=== PATIENT | female | born 1980 | race Caucasian/White ===

== ENCOUNTER → 2017-06-16 | Outpatient (CLI) | payer MEDICAID, SELFPAY | PROVIDERS: Visit Provider Nurse Practitioner Family | DX: R30.0 Dysuria (principal); Z00.00 Encounter for general adult medical examination without abnormal findings | CPT/HCPCS: 36415; 80053; 80061; 87086 ==

== ENCOUNTER 2017-06-28 13:12 | Observation (INO) | payer MEDICAID, SELFPAY ==
--- NOTE | 2017-06-28 | CT_ITS ---
CT head/brain wo con HISTORY: ITS.REASON: DIZZINESS ORDERING PHYSICIAN: Francisco Javier Khan MD PATIENT AGE: 37 years COMPARISON: 11/07/2010 TECHNIQUE: Axial images obtained without contrast. Brain and bone windows reviewed. FINDINGS: No midline shift, mass effect, intracranial hemorrhage, hydrocephalus, or extra-axial fluid collection is evident. The calvarium has an unremarkable appearance. No mastoid effusion. No sinus air-fluid levels.. IMPRESSION: Negative CT head without contrast. No acute finding.
[2017-06-28 13:16] VITALS: BP 147/91; PULSE 76; RESP 18; TEMP 36.7; O2SAT 97; BMI 53.3
--- NOTE | 2017-06-28 13:33 | XR_ITS ---
XR chest 2V HISTORY: ITS.REASON: weakness and dizziness ORDERING PHYSICIAN: Francisco Javier Khan MD PATIENT AGE: 37 years COMPARISON: None available FINDINGS: The cardiomediastinal silhouette and pulmonary vascularity are within normal limits. The lungs are clear without infiltrates, suspicious nodules, or pleural effusions. There is a small calcified granuloma in the right upper lobe No acute bony abnormalities. IMPRESSION: Negative chest, no acute finding
[2017-06-28 14:04] LABS: Basophils % 0.4 % (0.1-2.0); Eosinophils # 0.3 K/mm3 (0.0-0.4); Eosinophils % 4.2 % (0.1-12.0); Hematocrit 39.4 % (37.0-47.0); Hemoglobin 13.2 g/dL (12.2-16.2); Lymphocytes # 3.1 K/mm3 (0.7-4.5); Lymphocytes % 40.1 K/mm3 (10-50); Mean Corpuscular HGB Conc 33.5 g/dL (31.8-35.4); Mean Corpuscular Volume 86.5 fl (81-99); Mean Platelet Volume 7.1 fl (7.4-10.4); Monocytes # 0.4 K/mm3 (0.1-1.0); Monocytes % 5.4 % (1.7-9.3); Neutrophils # 3.9 K/mm3 (1.8-7.8); Neutrophils % 49.8 % (37.0-80.0); Platelet Count 254 K/mm3 (142-424); Red Blood Count 4.56 M/mm3 (4.20-5.40); White Blood Count 7.7 K/mm3 (4.8-10.8)
[2017-06-28 14:14] LABS: Strep Scrn Group A (Rapid) Negative (Negative)
[2017-06-28 14:18] LABS: AMB Influenza A Antigen Negative (Negative); AMB Influenza B Antigen Negative (Negative)
[2017-06-28 14:28] LABS: Alanine Aminotransferase 27 U/L (12-78); Albumin Level 4.2 gm/dL (3.4-5.0); Alkaline Phosphatase 78 U/L (46-116); Anion Gap 9.9 mEq/L (5-15); Aspartate Amino Transferase 20 U/L (15-37); Bilirubin,Total 0.3 mg/dL (0.2-1.0); Blood Urea Nitrogen 14 mg/dL (7-18); Calcium 9.7 mg/dL (8.5-10.1); Carbon Dioxide 29 mmol/L (21.0-32.0); Chloride 103 mmol/L (98-107); Creatine Kinase 72 U/L (26-192); Creatinine Clearance Estimated 78 mL/min (0-300); Creatinine,Serum 0.82 mg/dL (0.55-1.02); Estimated Glomerular Filt Rate 78 ml/min (>60); GFR (African American) 95 ML/MIN (>60); Globulin 4.2 gm/dl (1.3-3.2); Glucose 86 mg/dL (74-106); Potassium 3.9 mmoL/L (3.5-5.1); Sodium 138 mmol/L (136-145); Total Protein,Serum 8.4 gm/dL (6.4-8.2); Troponin I < 0.02 ng/ml (0.00-0.06)
[2017-06-28 14:29] LABS: CKMB Relative Index 0.7 U/L (0-4.0); Creatine Kinase MB < 0.5 mg/ml (0.0-3.6)
[2017-06-28 15:13] LABS: Microscopic, Urine URINE MICROSCOPIC (MICROSCOPIC)
[2017-06-28 15:16] LABS: Appearance,Urine CLEAR (Clear); Bilirubin,Urine Negative (Negative); Blood, Urine 2+ (Negative); Color,Urine STRAW (Yellow); Glucose,Urine (UA) Negative (Negative); Ketones,Urine Negative (Negative); Leukocyte Esterase,Urine Negative (Negative); Nitrate,Urine Negative (Negative); Protein,Urine Negative (Negative); Specific Gravity, Urine <= 1.005 (1.005-1.030); Urobilinogen,Urine 0.2 EU/dl (0.2)
[2017-06-28 15:52] LABS: Bacteria,Urine 1+ /lpf; RBC,Urine Occasional #/hpf (0-3); WBC,Urine Occasional #/hpf (0-3)
--- NOTE | 2017-06-28 16:00 | HMH.EDDIZZ ---
ED Disposition Clinical Impression: Pre-syncope, Vertigo Hypertension Qualifiers: Hypertension type: unspecified Qualified Code(s): I10 - Essential (primary) hypertension Disposition: Still a Patient Condition on Discharge: Fair Referrals: Provider,Referral, [Primary Care Provider] - - Critical Care Critical Care Time: No Attestation: On 06/28/17, the high probability of a clinically significant, sudden or life threatening deterioration of the following system(s) required my full and direct attention, intervention and personal management. The time I documented below is in addition to time spent performing reported procedures but includes the following listed in this critical care notation. Medical Decision Making Vital Signs: 06/28/17 13:16 Temperature 98.1 F Temperature Source Oral Pulse Rate [Right Brachial] 76 Respiratory Rate 18 Blood Pressure [Right Arm] 147/91 Blood Pressure Mean [Right Arm] 109 Blood Pressure Source [Right Arm] Automatic Cuff Blood Pressure Position [Right Arm] Sitting 02 Sat by Pulse Oximetry 97 Oxygen Delivery Method Room Air - Lab Data Lab Results 06/28/17 13:50: WBC 7.7, RBC 4.56, Hgb 13.2, Hct 39.4, MCV 86.5, MCH 29.0, MCHC 33.5, RDW 13.0, Plt Count 254, MPV 7.1 L, Neut % (Auto) 49.8, Lymph % (Auto) 40.1, [place] % (Auto) 5.4, Eos % (Auto) 4.2, Baso % (Auto) 0.4, Neut # (Auto) 3.9, Lymph # (Auto) 3.1, [place] # (Auto) 0.4, Eos # (Auto) 0.3, Baso # (Auto) 0.0 06/28/17 13:50: Sodium 138, Potassium 3.9, Chloride 103, Carbon Dioxide 29, Anion Gap 9.9, BUN 14, Creatinine 0.82, Estimated Creat Clear 78, Estimated GFR 78, Est GFR ( Amer) 95, Glucose 86, Calcium 9.7, Total Bilirubin 0.3, AST 20, ALT 27, Alkaline Phosphatase 78, Total Creatine Kinase 72, CK-MB (CK-2) < 0.5, CK-MB (CK-2) Rel Index 0.7, Troponin I < 0.02, Total Protein 8.4 H, Albumin 4.2, Globulin 4.2 H, Albumin/Globulin Ratio 1.0 L 06/28/17 13:50: Group A Strep Rapid Negative 06/28/17 13:50: Influenza Type A Ag Negative, Influenza Type B Ag Negative 06/28/17 15:05: Urine Color Straw, Urine Appearance Clear, Urine pH 6.0, Ur Specific [place] <= 1.005, Urine Protein Negative, Urine Glucose (UA) Negative, Urine Ketones Negative, Urine Blood 2+, Urine Nitrate Negative, Urine Bilirubin Negative, Urine Urobilinogen 0.2, Ur Leukocyte Esterase Negative, Urine RBC Occasional, Urine WBC Occasional, Ur Squamous Epith Cells 5-10, Urine Bacteria 1+ Result diagrams: 06/28/17 13:50 06/28/17 13:50 Orders (Tests/Meds): ORDERS Category Date Time Status Strep Screen Confirmation Stat Micro 06/28/17 13:50 Received - Radiology Data #1 Image(s): Chest Image Reviewed: Yes I reviewed the patient's radiology results, Yes I reviewed the patient's radiology image w/the ED provider - CT Data ED CT Reviewed: Yes: I have reviewed the patient's CT results, I have viewed the radiologist's interpretation Preliminary Findings: Normal/NAD - Jack Inquiry Pt receiving controlled substance: No Jack was queried for this patient: No Medical Decision Making Narrative: I discussed the negative workup with the patient. She continued to be symptomatic feeling weak unable to ambulate. I called Dr. Barnhart and spoke with Liyah. She would be admitted for observation. Dizzy HPI - General Chief Complaint: Weakness Stated Complaint: high blood pressure Mode of Arrival: Ambulatory Limitations: No Limitations Description of Symptoms (Recalled from ER Triage Doc. by RN): PT STATES SHE WAS AT WORK AND SHE STARTED FEELING WEAK AND HAD THE SCHOOL NURSE CHECK HER BLOOD SUGAR IT WAS 92 AND HER BP WAS 170/130. PT FEELS DIZZY WHEN STANDING. - History of Present Illness HPI Narrative: Since 37 years old white female with history of remote vertigo. She was at work when she had a sudden onset of dizziness diaphoresis imbalance and leg weakness. Denies having chest pain shortness of breath or palpitation, she went to the school [employer]
--- NOTE | 2017-06-28 16:04 | ED_ITS ---
ED Disposition Clinical Impression: Pre-syncope, Vertigo Hypertension Qualifiers: Hypertension type: unspecified Qualified Code(s): I10 - Essential (primary) hypertension Disposition: Still a Patient Condition on Discharge: Fair Referrals: Provider,Referral, [Primary Care Provider] - - Critical Care Critical Care Time: No Attestation: On 06/28/17, the high probability of a clinically significant, sudden or life threatening deterioration of the following system(s) required my full and direct attention, intervention and personal management. The time I documented below is in addition to time spent performing reported procedures but includes the following listed in this critical care notation. Medical Decision Making Vital Signs: 06/28/17 13:16 Temperature 98.1 F Temperature Source Oral Pulse Rate [Right Brachial] 76 Respiratory Rate 18 Blood Pressure [Right Arm] 147/91 Blood Pressure Mean [Right Arm] 109 Blood Pressure Source [Right Arm] Automatic Cuff Blood Pressure Position [Right Arm] Sitting 02 Sat by Pulse Oximetry 97 Oxygen Delivery Method Room Air - Lab Data Lab Results 06/28/17 13:50: WBC 7.7, RBC 4.56, Hgb 13.2, Hct 39.4, MCV 86.5, MCH 29.0, MCHC 33.5, RDW 13.0, Plt Count 254, MPV 7.1 L, Neut % (Auto) 49.8, Lymph % (Auto) 40.1, [place] % (Auto) 5.4, Eos % (Auto) 4.2, Baso % (Auto) 0.4, Neut # (Auto) 3.9 , Lymph # (Auto) 3.1, [place] # (Auto) 0.4, Eos # (Auto) 0.3, Baso # (Auto) 0.0 06/28/17 13:50: Sodium 138, Potassium 3.9, Chloride 103, Carbon Dioxide 29, Anion Gap 9.9, BUN 14, Creatinine 0.82, Estimated Creat Clear 78, Estimated GFR 78, Est GFR ( Amer) 95, Glucose 86, Calcium 9.7, Total Bilirubin 0.3, AST 20, ALT 27, Alkaline Phosphatase 78, Total Creatine Kinase 72, CK-MB (CK-2) < 0.5, CK-MB (CK-2) Rel Index 0.7, Troponin I < 0.02, Total Protein 8.4 H, Albumin 4.2, Globulin 4.2 H, Albumin/Globulin Ratio 1.0 L 06/28/17 13:50: Group A Strep Rapid Negative 06/28/17 13:50: Influenza Type A Ag Negative, Influenza Type B Ag Negative 06/28/17 15:05: Urine Color Straw, Urine Appearance Clear, Urine pH 6.0, Ur Specific [place] <= 1.005, Urine Protein Negative, Urine Glucose (UA) Negative, Urine Ketones Negative, Urine Blood 2+, Urine Nitrate Negative, Urine Bilirubin Negative, Urine Urobilinogen 0.2, Ur Leukocyte Esterase Negative, Urine RBC Occasional, Urine WBC Occasional, Ur Squamous Epith Cells 5-10, Urine Bacteria 1 + Result diagrams: 06/28/17 13:50 06/28/17 13:50 Orders (Tests/Meds): ORDERS Category Date Time Status Strep Screen Confirmation Stat Micro 06/28/17 13:50 Received - Radiology Data #1 Image(s): Chest Image Reviewed: Yes I reviewed the patient's radiology results, Yes I reviewed the patient's radiology image w/the ED provider - CT Data ED CT Reviewed: Yes: I have reviewed the patient's CT results, I have viewed the radiologist's interpretation Preliminary Findings: Normal/NAD - Jack Inquiry Pt receiving controlled substance: No Jack was queried for this patient: No Medical Decision Making Narrative: I discussed the negative workup with the patient. She continued to be symptomatic feeling weak unable to ambulate. I called Dr. Barnhart and spoke with Liyah. She would be admitted for observation. Dizzy HPI - General Chief Complaint: Weakness Stated Complaint: high blood pressure Mode of Arrival: Ambulatory Limitations:
--- NOTE | 2017-06-28 16:06 | PC.NURSE ---
SPOKE WITH [employer] FOR ADMIT BED.
--- NOTE | 2017-06-28 16:37 | HMH.HP ---
*Admission Date: 06/28/17 *Chief complaint: dizziness *History of present illness: 37 year old female presented to the ED with dizziness, elevated blood pressure, and headache. Patient reports she was walking through the kitchen at work when she had acute onset of diaphoresis and dizziness. She began seeing white spots and thought she was going to pass out. States she went to see the school nurse who took blood pressure which was elevated at 170/130. She was brought to the ED for evaluation. In the ED, CT head and labwork were unremarkable. Patient continued to have dizziness and was unsteady on her feet. Blood pressure remained elevated 140's/100's. Patient was admitted for observation and further evaluation. [facility] History Medical History: Denies:: Cancer, Diabetes Mellitus Type 1, Diabetes Mellitus Type 2, MRSA Amputation: No Fractures: No - *Social History Smoking Status: Never smoker Alcohol Intake: never - Psychiatric History Expresses thoughts of harming self/others: None Suicide Plan Description: No Plan Review of Systems - Review of Systems Review of systems:: pertinent systems reviewed and negative unless documented below - *Gastrointestinal Reports nausea, Denies loose stools, Denies vomiting - *Neurologic Reports headache(s), Reports dizziness, Denies abnormal walking, Denies abnormal movements, Denies confusion, Denies tingling, Denies weakness Meds Allergies Allergy/AdvReac Type Severity Reaction Status Date / Time escitalopram [From Lexapro] Allergy Mild Hives Verified 06/28/17 13:28 Penicillins Allergy Mild Hives Verified 06/28/17 13:28 Exam Vital signs and Labs for Last 24 Hours: Temp Pulse Resp BP Pulse Ox 98.1 F 76 18 147/91 97 06/28/17 13:16 06/28/17 13:16 06/28/17 13:16 06/28/17 13:16 06/28/17 13:16 Laboratory Results - last 24 hr 06/28/17 13:50: WBC 7.7, RBC 4.56, Hgb 13.2, Hct 39.4, MCV 86.5, MCH 29.0, MCHC 33.5, RDW 13.0, Plt Count 254, MPV 7.1 L, Neut % (Auto) 49.8, Lymph % (Auto) 40.1, [place] % (Auto) 5.4, Eos % (Auto) 4.2, Baso % (Auto) 0.4, Neut # (Auto) 3.9, Lymph # (Auto) 3.1, [place] # (Auto) 0.4, Eos # (Auto) 0.3, Baso # (Auto) 0.0 06/28/17 13:50: Sodium 138, Potassium 3.9, Chloride 103, Carbon Dioxide 29, Anion Gap 9.9, BUN 14, Creatinine 0.82, Estimated Creat Clear 78, Estimated GFR 78, Est GFR ( Amer) 95, Glucose 86, Calcium 9.7, Total Bilirubin 0.3, AST 20, ALT 27, Alkaline Phosphatase 78, Total Creatine Kinase 72, CK-MB (CK-2) < 0.5, CK-MB (CK-2) Rel Index 0.7, Troponin I < 0.02, Total Protein 8.4 H, Albumin 4.2, Globulin 4.2 H, Albumin/Globulin Ratio 1.0 L 06/28/17 13:50: Group A Strep Rapid Negative 06/28/17 13:50: Influenza Type A Ag Negative, Influenza Type B Ag Negative 06/28/17 15:05: Urine Color Straw, Urine Appearance Clear, Urine pH 6.0, Ur Specific [place] <= 1.005, Urine Protein Negative, Urine Glucose (UA) Negative, Urine Ketones Negative, Urine Blood 2+, Urine Nitrate Negative, Urine Bilirubin Negative, Urine Urobilinogen 0.2, Ur Leukocyte Esterase Negative, Urine RBC Occasional, Urine WBC Occasional, Ur Squamous Epith Cells 5-10, Urine Bacteria 1+ I & O for Last 24 hours: Intake & Output 06/26/17 06/27/17 06/28/17 06/29/17 11:59 11:59 11:59 11:59 Weight 301 lb Narrative: Pleasant, NAD. Alert and oriented x3. Rate and rhythm regular. No LE edema. Pulses 2+ bilaterally. Lung sounds clear and equal throughout. Abdomen soft, non-tender. [place] inconclusive. No arm drift. No unilateral weakness or neurological deficit. Skin pink, warm and dry. No JVD or cervical LAD H&P: Result - Labs Labs: Short CBC 06/28/17 Range/Units 13:50 WBC 7.7 (4.8-10.8) K/mm3 Hgb 13.2 (12.2-16.2) g/dL Hct 39.4 (37.0-47.0) % Plt Count 254 (142-424) K/mm3 [facility] 06/28/17 13:50 Sodium 138 Potassium 3.9 Chloride 103 Carbon Dioxide 29 BUN 14 Creatinine 0.82 Glucose 86 Calcium 9.7 Cardiac Enzymes
[2017-06-28 16:43] LABS: Troponin I < 0.02 ng/ml (0.00-0.06)
--- NOTE | 2017-06-28 16:43 | P.HP_ITS ---
*Admission Date: 06/28/17 *Chief complaint: dizziness *History of present illness: 37 year old female presented to the ED with dizziness, elevated blood pressure, and headache. Patient reports she was walking through the kitchen at work when she had acute onset of diaphoresis and dizziness. She began seeing white spots and thought she was going to pass out. States she went to see the school nurse who took blood pressure which was elevated at 170/130. She was brought to the ED for evaluation. In the ED, CT head and labwork were unremarkable. Patient continued to have dizziness and was unsteady on her feet. Blood pressure remained elevated 140's/100's. Patient was admitted for observation and further evaluation. [facility] History Medical History: Denies:: Cancer, Diabetes Mellitus Type 1, Diabetes Mellitus Type 2, MRSA Amputation: No Fractures: No - *Social History Smoking Status: Never smoker Alcohol Intake: never - Psychiatric History Expresses thoughts of harming self/others: None Suicide Plan Description: No Plan Review of Systems - Review of Systems Review of systems:: pertinent systems reviewed and negative unless documented below - *Gastrointestinal Reports nausea, Denies loose stools, Denies vomiting - *Neurologic Reports headache(s), Reports dizziness, Denies abnormal walking, Denies abnormal movements, Denies confusion, Denies tingling, Denies weakness Meds Allergies Allergy/AdvReac Type Severity Reaction Status Date / Time escitalopram [From Lexapro] Allergy Mild Hives Verified 06/28/17 13:28 Penicillins Allergy Mild Hives Verified 06/28/17 13:28 Exam Vital signs and Labs for Last 24 Hours: Temp Pulse Resp BP Pulse Ox 98.1 F 76 18 147/91 97 06/28/17 13:16 06/28/17 13:16 06/28/17 13:16 06/28/17 13:16 06/28/17 13:16 Laboratory Results - last 24 hr 06/28/17 13:50: WBC 7.7, RBC 4.56, Hgb 13.2, Hct 39.4, MCV 86.5, MCH 29.0, MCHC 33.5, RDW 13.0, Plt Count 254, MPV 7.1 L, Neut % (Auto) 49.8, Lymph % (Auto) 40.1, [place] % (Auto) 5.4, Eos % (Auto) 4.2, Baso % (Auto) 0.4, Neut # (Auto) 3.9 , Lymph # (Auto) 3.1, [place] # (Auto) 0.4, Eos # (Auto) 0.3, Baso # (Auto) 0.0 06/28/17 13:50: Sodium 138, Potassium 3.9, Chloride 103, Carbon Dioxide 29, Anion Gap 9.9, BUN 14, Creatinine 0.82, Estimated Creat Clear 78, Estimated GFR 78, Est GFR ( Amer) 95, Glucose 86, Calcium 9.7, Total Bilirubin 0.3, AST 20, ALT 27, Alkaline Phosphatase 78, Total Creatine Kinase 72, CK-MB (CK-2) < 0.5, CK-MB (CK-2) Rel Index 0.7, Troponin I < 0.02, Total Protein 8.4 H, Albumin 4.2, Globulin 4.2 H, Albumin/Globulin Ratio 1.0 L 06/28/17 13:50: Group A Strep Rapid Negative 06/28/17 13:50: Influenza Type A Ag Negative, Influenza Type B Ag Negative 06/28/17 15:05: Urine Color Straw, Urine Appearance Clear, Urine pH 6.0, Ur Specific [place] <= 1.005, Urine Protein Negative, Urine Glucose (UA) Negative, Urine Ketones Negative, Urine Blood 2+, Urine Nitrate Negative, Urine Bilirubin Negative, Urine Urobilinogen 0.2, Ur Leukocyte Esterase Negative, Urine RBC Occasional, Urine WBC Occasional, Ur Squamous Epith Cells 5-10, Urine Bacteria 1 + I & O for Last 24 hours: Intake & Output 06/26/17 06/27/17 06/28/17 06/29/17 11:59 11:59 11:59 11:59 Weight 301 lb Narrative: Pleasant, NAD. Alert and oriented x3. Rate and rhythm regular. No LE edema. Pulses 2+ bilaterally. Lung sounds clear and equal throughout. Abdomen soft, non-tender. [place] inconclusive. No arm drift. No unilateral weak
[2017-06-28 17:04] VITALS: BP 144/94; PULSE 74; RESP 20; O2SAT 96
[2017-06-28 17:20] VITALS: BMI 53.3
[2017-06-28 18:45] VITALS: BP 128/72; PULSE 68; RESP 20; TEMP 36.6; O2SAT 97; BMI 53.4
[2017-06-28 18:57] VITALS: PULSE 60
--- NOTE | 2017-06-28 19:21 | PC.NURSE ---
REPORT RECEIVED FROM KOLBY; PT FULL CODE
[2017-06-28 19:53] LABS: Troponin I < 0.02 ng/ml (0.00-0.06)
[2017-06-28 20:00] VITALS: BP 137/76; PULSE 64; PULSE 70; RESP 18; TEMP 36.8; O2SAT 98
[2017-06-28 21:00] VITALS: PULSE 64; O2SAT 98
[2017-06-28 22:49] LABS: Troponin I < 0.02 ng/ml (0.00-0.06)
[2017-06-29] VITALS: BP 112/68; PULSE 70; PULSE 74; RESP 18; TEMP 36.4; O2SAT 95
[2017-06-29 03:50] VITALS: BP 124/63; PULSE 65; RESP 20; TEMP 36.6; O2SAT 97
[2017-06-29 04:00] VITALS: PULSE 70
--- NOTE | 2017-06-29 06:28 | PC.NURSE ---
PT SLEPT INTERVALS THIS SHIFT. C/O DULL BACK X2, TYLENOL GIVEN. ALSO, STATED FELT A LITTLE FUNNY ASKED IF SHE COULD HAVE THE MECLIZINE. MED GIVEN PER AUG. VSS. TROPONIN X4 ALL <0.02. NO CHEST PAIN. NO SOA NOTED. IV SECURE AND PATENT. PT TO RECEIVE ECHO AND CAROTID DOPPLER TODAY. PT STABLE. WILL CONTINUE TO MONITOR. REPORT TO BE GIVEN TO ONCOMING NURSE.
--- NOTE | 2017-06-29 06:54 | CA_ITS ---
PROCEDURE: 2-D M-mode and color Doppler study INDICATIONS FOR THE TEST: Chest pain COPD Heart Murmur Tobacco Smoking Palpitations Fatigue SyncopeX Edema HypertensionXDiabetes Mellitus Rheumatic Fever SOB MARTÍNEZ Obesity Hyperlipidemia Family History HD Additional History DIZZINESS PATIENT INFORMATION HEIGHT: 63 WEIGHT:301 GENDER: Female B/P:117/80 2-D/M-MODE INTERPRETATION: 2-D MEASUREMENTS OBSERVED VALUES IN CMS Right Ventricular Dimension (RVDd) .9 Interventricular Septum (Thickness)(IVsd) 1.1 Left Ventricular Internal Dimensions(LVIDd) 5.0 Left Ventricular Posterior Wall (Thickness)(LVPWd) .9 Aortic Root 2.8 Aortic Cusp Separation 2.1 Left Atrial Dimensions (LAD) 3.6 2D 1. Technically difficult study because of the patient's factor and poor acoustic windows. 2. Left atrium is normal size, left ventricle is normal size, left ventricle wall thickness is upper limit of the normal, there is preserved left ventricular systolic function, visually estimated ejection fraction 55% with no obvious regional wall motion abnormality. 3. The right atrium and right ventricle are normal size and contractility. 4. The aortic, mitral and tricuspid valve are grossly normal. 5. The pulmonic valve is poorly visualized. 6. No significant pericardial effusion noted. DOPPLER INTERROGATION: Doppler interrogation of the aortic, mitral and tricuspid valvular presence of mild mitral and tricuspid regurgitation, tricuspid regurgitant jet velocity is insufficient for calculation of the right ventricular systolic pressure, diastolic parameters are inconclusive. CONCLUSION: 1. Technically difficult study because of the patient's factor and poor acoustic windows 2. Normal left ventricular size, preserved left ventricular systolic function, visually estimated ejection fraction 55% with no obvious regional wall motion abnormality, diastolic parameters are inconclusive. 3. Mild mitral and tricuspid regurgitation. 4. No significant pericardial effusion noted.
--- NOTE | 2017-06-29 07:43 | P.CONPHA_ITS ---
[facility] Pharmacy VTE Monitoring - Patient Demographics Admission date: 06/28/17 Report Date: 06/29/17 Time: 07:43 Allergies/Adverse Reactions: escitalopram [From Lexapro] Allergy (Mild, Verified 06/28/17 13:28) Hives Penicillins Allergy (Mild, Verified 06/28/17 13:28) Hives Height: 1.6 m Weight: 136.73 kg Patient Problems: Current Active Problems Pre-syncope (Acute) Hypertension (Acute) Vertigo (Acute) - VTE Risk Labs: VTE Related Lab Results Hgb 13.2 g/dL (12.2-16.2) 06/28/17 13:50 Hct 39.4 % (37.0-47.0) 06/28/17 13:50 Plt Count 254 K/mm3 (142-424) 06/28/17 13:50 BUN 14 mg/dL (7-18) 06/28/17 13:50 Creatinine 0.82 mg/dL (0.55-1.02) 06/28/17 13:50 Estimated Creat Clear 78 mL/min (0-300) 06/28/17 13:50 Was VTE Risk Assessment Performed: Yes VTE Score: 1 VTE Risk Level: Very Low Risk - Prophylaxis VTE Prophylaxis Ordered?: Yes Types of VTE Prophylaxis: TEDS Knee High Location of Applied Device: Bilateral Lower Extremeties - VTE Diagnosis Confirmed Treatment or plan recommended: Continue Current Treatment
[2017-06-29 07:49] VITALS: BP 117/80; PULSE 66; RESP 20; TEMP 36.4; O2SAT 97
[2017-06-29 08:00] VITALS: PULSE 74
--- NOTE | 2017-06-29 08:04 | HMH.DCSUM ---
General - General Admission date: 06/28/17 Discharge date: 06/29/17 HPI HPI: 37 year old female presented to the ED with dizziness, elevated blood pressure, and headache. Patient reports she was walking through the kitchen at work when she had acute onset of diaphoresis and dizziness. She began seeing white spots and thought she was going to pass out. States she went to see the school nurse who took blood pressure which was elevated at 170/130. She was brought to the ED for evaluation. In the ED, CT head and labwork were unremarkable. Patient continued to have dizziness and was unsteady on her feet. Blood pressure remained elevated 140's/100's. Patient was admitted for observation and further evaluation. Objective Vital signs: Temp Pulse Resp BP Pulse Ox 97.6 F 66 20 117/80 97 06/29/17 07:49 06/29/17 07:49 06/29/17 07:49 06/29/17 07:49 06/29/17 07:49 no acute distress - *Routine HEENT Exam Head: Present: normocephalic - *Routine Respiratory Exam Present: CTA bilaterally - *Routine Cardiovascular Exam Present: RRR, Normal S1, Normal S2 - *Routine Abdominal Exam Present: soft - *Routine Extremities Exam Absent: edema, full ROM - *Routine Neurological Exam Present: alert, oriented X3, CN II-XII intact Hospital Course Hospital Course: Patient was admitted to hospital, cardiac testing was unremarkable, imaging was unremarkable and telemetry monitoring was unremarkable. Lisinopril improved blood pressure normal ranges and this morning she is feeling much better, still a little bit of vertiginous symptoms when she moves her head about. Plan will be to discharge home today with lisinopril, Flonase, meclizine and prednisone for vertigo. We will see her in the office in 4 days to follow-up blood pressure and her vertiginous symptoms. Results Labs on day of discharge: Labs from last 24 hours 06/28/17 06/28/17 22:13 19:25 Troponin I < 0.02 < 0.02 DS: Diagnosis - Discharge Diagnosis (1) Hypertension Status: Acute (2) Pre-syncope Status: Acute (3) Vertigo Status: Acute Meds Home Medications Medication Instructions Recorded Confirmed Type No Known Home Medications [No 06/28/17 06/28/17 History Known Home Medications] Allergies Allergy/AdvReac Type Severity Reaction Status Date / Time escitalopram [From Lexapro] Allergy Mild Hives Verified 06/28/17 13:28 Penicillins Allergy Mild Hives Verified 06/28/17 13:28 Discharge Plan - Patient Discharge Instructions Activity: Ambulate as Tolerated Diet: advance to your usual diet - Follow up Plan Follow up with: Perri De León APRN [Nurse Practitioner] - 07/03/17 Disposition: Home, Self-Custodial Medications: Home Medications Medication Instructions Recorded Confirmed Type No Known Home Medications [No 06/28/17 06/28/17 History Known Home Medications] Prescriptions/Medication Reconciliation: New Fluticasone Propionate [Flonase 50mcg nasal spray 16gm] 2 spr NS DAILY #1 bottle Lisinopril [Zestril 10mg Tab] 10 mg PO DAILY #30 tablet predniSONE [Deltasone 20mg tablet] 20 mg PO BID 5 Days #10 tab Meclizine HCl [Antivert 25mg tablet] 25 mg PO Q8HP PRN #30 tablet PRN Reason: dizziness No Action No Known Home Medications [No Known Home Medications] - Vaccines Have you received the pneumonia vaccine?: No Have you received the flu vaccine for this season?: Yes
--- NOTE | 2017-06-29 08:10 | P.DS_ITS ---
General - General Admission date: 06/28/17 Discharge date: 06/29/17 HPI HPI: 37 year old female presented to the ED with dizziness, elevated blood pressure, and headache. Patient reports she was walking through the kitchen at work when she had acute onset of diaphoresis and dizziness. She began seeing white spots and thought she was going to pass out. States she went to see the school nurse who took blood pressure which was elevated at 170/130. She was brought to the ED for evaluation. In the ED, CT head and labwork were unremarkable. Patient continued to have dizziness and was unsteady on her feet. Blood pressure remained elevated 140's/100's. Patient was admitted for observation and further evaluation. Objective Vital signs: Temp Pulse Resp BP Pulse Ox 97.6 F 66 20 117/80 97 06/29/17 07:49 06/29/17 07:49 06/29/17 07:49 06/29/17 07:49 06/29/17 07:49 no acute distress - *Routine HEENT Exam Head: Present: normocephalic - *Routine Respiratory Exam Present: CTA bilaterally - *Routine Cardiovascular Exam Present: RRR, Normal S1, Normal S2 - *Routine Abdominal Exam Present: soft - *Routine Extremities Exam Absent: edema, full ROM - *Routine Neurological Exam Present: alert, oriented X3, CN II-XII intact Hospital Course Hospital Course: Patient was admitted to hospital, cardiac testing was unremarkable, imaging was unremarkable and telemetry monitoring was unremarkable. Lisinopril improved blood pressure normal ranges and this morning she is feeling much better, still a little bit of vertiginous symptoms when she moves her head about. Plan will be to discharge home today with lisinopril, Flonase, meclizine and prednisone for vertigo. We will see her in the office in 4 days to follow-up blood pressure and her vertiginous symptoms. Results Labs on day of discharge: Labs from last 24 hours 06/28/17 06/28/17 22:13 19:25 Troponin I < 0.02 < 0.02 DS: Diagnosis - Discharge Diagnosis (1) Hypertension Status: Acute (2) Pre-syncope Status: Acute (3) Vertigo Status: Acute Meds Home Medications Medication Instructions Recorded Confirmed Type No Known Home Medications [No 06/28/17 06/28/17 History Known Home Medications] Allergies Allergy/AdvReac Type Severity Reaction Status Date / Time escitalopram [From Lexapro] Allergy Mild Hives Verified 06/28/17 13:28 Penicillins Allergy Mild Hives Verified 06/28/17 13:28 Discharge Plan - Patient Discharge Instructions Activity: Ambulate as Tolerated Diet: advance to your usual diet - Follow up Plan Follow up with: Perri De León APRN [Nurse Practitioner] - 07/03/17 Disposition: Home, Self-[facility] Medications: Home Medications Medication Instructions Recorded Confirmed Type No Known Home Medications [No 06/28/17 06/28/17 History Known Home Medications] Prescriptions/Medication Reconciliation: New Fluticasone Propionate [Flonase 50mcg nasal spray 16gm] 2 spr NS DAILY #1 bottle Lisinopril [Zestril 10mg Tab] 10 mg PO DAILY #30 tablet predniSONE [Deltasone 20mg tablet] 20 mg PO BID 5 Days #10 tab Meclizine HCl [Antivert 25mg tablet] 25 mg PO Q8HP PRN #30 tablet PRN Reason: dizziness No
--- NOTE | 2017-06-29 08:33 | CI_ITS ---
Cerebrovascular Exam Indications: 780.4 Dizziness and giddiness. IMPRESSIONS 1. The bilateral vertebral arteries are patent with normal antegrade flow. 2. Study suggests less than 20% stenosis involving the right internal carotid artery and the left internal carotid artery. History: Syncope. Risk factors: Hypertension. Carotid duplex study. Complete study and Doppler flow study including spectral analysis, color and barrios scale imaging. Height: Height: 160cm. Height: 63in. Weight: Weight: 136.5kg. Weight: 300.4lb. Body mass index: BMI: 53.3kg/m^2. Body surface area: BSA: 2.55m^2. Patient status: Inpatient. Tables: Arterial flow: + +--------+--------+ Location V sys V ed + +--------+--------+ Right CCA - proximal 162cm/s 26.7cm/s + +--------+--------+ Right CCA - distal 115cm/s 31.4cm/s + +--------+--------+ Right ECA 97.4cm/s -------- + +--------+--------+ Right ICA - proximal 106cm/s 42.4cm/s + +--------+--------+ Right ICA - mid 102cm/s 49.5cm/s + +--------+--------+ Right ICA - distal 102cm/s 40.9cm/s + +--------+--------+ Right vertebral 55cm/s -------- + +--------+--------+ Left CCA - proximal 150cm/s 33cm/s + +--------+--------+ Left CCA - distal 117cm/s 29.1cm/s + +--------+--------+ Left ECA 72.7cm/s -------- + +--------+--------+ Left ICA - proximal 56.8cm/s 21.5cm/s + +--------+--------+ Left ICA - mid 98.5cm/s 32.1cm/s + +--------+--------+ Left ICA - distal 74cm/s 28.6cm/s + +--------+--------+ Left vertebral 33.9cm/s -------- + +--------+--------+ Velocity ratios: + + + + + + Right, V sys Right, V ed Left, V sys Left, V ed + + + + + + Max ICA/dist CCA 0.92 1.58 0.84 1.1 + + + + + + (Report amended ) Electronically signed by: Frankie Peña [id number]
== END 2017-06-29 10:46 | disposition home or self-care (01) ==
LOC: ER 16:07 → 2ND 20:06
PROVIDERS: Admitting Provider Internal Medicine Adolescent Medicine; Emergency Provider Emergency Medicine; Family Provider Internal Medicine; Visit Provider Internal Medicine Adolescent Medicine
DX: I10 Essential (primary) hypertension (principal); R55 Syncope and collapse; R42 Dizziness and giddiness; R51 Headache
CPT/HCPCS: 36415; 70450; 71046; 80053; 81001; 82550; 82553; 84484; 85025; 87275; 87276; 87430; 93306; 93880; 99284; G0378

== ENCOUNTER → 2017-09-15 09:19 | Outpatient (CLI) | payer SELFPAY ==
[2017-09-15 10:23] LABS: Alanine Aminotransferase 31 U/L (12-78); Albumin Level 3.6 gm/dL (3.4-5.0); Albumin/Globulin Ratio 0.9 (1.1-1.8); Alkaline Phosphatase 60 U/L (46-116); Aspartate Amino Transferase 19 U/L (15-37); Bilirubin,Total 0.2 mg/dL (0.2-1.0); Blood Urea Nitrogen 16 mg/dL (7-18); Calcium 9.2 mg/dL (8.5-10.1); Carbon Dioxide 27 mmol/L (21.0-32.0); Chloride 103 mmol/L (98-107); Chol/HDL Ratio 4.1 (1-3.5); Cholesterol 162 mg/dL (140-200); Estimated Glomerular Filt Rate 94 ml/min (>60); GFR (African American) 114 ML/MIN (>60); Globulin 3.9 gm/dl (1.3-3.2); Glucose 91 mg/dL (74-106); HDL Cholesterol 40 mg/dL (29-89); LDL Cholesterol 102 mg/dL (0-130); Sodium 136 mmol/L (136-145); Total Protein,Serum 7.5 gm/dL (6.4-8.2); Triglycerides 98 mg/dL (30-200); VLDL Cholesterol 20 mg/dL (0-40)
== END ==
PROVIDERS: Visit Provider Nurse Practitioner Family
DX: Z00.00 Encounter for general adult medical examination without abnormal findings (principal); I10 Essential (primary) hypertension
CPT/HCPCS: 36415; 80053; 80061

== ENCOUNTER → 2018-01-04 13:19 | Outpatient (CLI) | payer MEDICAID, SELFPAY ==
--- NOTE | 2018-01-04 13:23 | MM_ITS ---
MM Dig mamm BI DX w/CAD COMPARISON: None, this is baseline INDICATION: Palpable lump right breast, no family history available at this time TECHNIQUE: Standard MLO and CC views were obtained FINDINGS: The breasts are composed primarily of fat. There is a well-defined nodular density upper outer quadrant right breast approximately 10 cm from the nipple. It has smooth benign-appearing borders. There is a tiny nodular density near the axilla tail of the left breast possibly small low lying intramammary node. There is no suspicious lesion in either breast and there are no suspicious microcalcifications. There is a tiny benign-appearing calcination right breast. IMPRESSION: Fatty type breast parenchyma with benign-appearing nodular density right breast. Since is the baseline study and the ultrasound exam shows hypoechoic lesion with homogeneous internal echoes recommend the patient return for 6 month follow-up right mammogram and ultrasound to evaluate interval stability or resolution BI-RADS Category: 3 Benign Finding Short Term Follow-up RECOMMENDED FOLLOW-UP: 6M - 6 MONTH FOLLOW-UP (A letter has been sent to the patient regarding results of the study.)
--- NOTE | 2018-01-04 13:24 | US_ITS ---
US breast RT complete COMPARISON: None HISTORY: Palpable lump right breast, focal benign-appearing density on mammogram same date TECHNIQUE: Targeted ultrasound primarily upper outer quadrant FINDINGS: There is a spherical well-defined hypoechoic lesion left o'clock position outer breast measuring 0.6 x 0.6 x 0.5 cm. And shows homogeneous internal echogenicity and only slight acoustic enhancement beneath the lesion. Otherwise the surrounding breast parenchyma shows normal rather homogeneous echogenicity consistent with fatty type breast parenchyma. IMPRESSION: Benign-appearing hypoechoic lesion most likely a cyst possibly with recent hemorrhage into the cyst accounting for the homogeneous echogenicity. In view of the benign appearance and emboli appearance on the mammogram suggest patient return for 6 month follow-up right mammogram and ultrasound to evaluate for interval stability or resolution.
== END ==
PROVIDERS: Family Provider Internal Medicine; PCP Internal Medicine Adolescent Medicine; Visit Provider Nurse Practitioner Family
DX: N63.10 Unspecified lump in the right breast, unspecified quadrant (principal); N64.4 Mastodynia
CPT/HCPCS: 76641; 77066

== ENCOUNTER → 2018-04-04 09:22 | Outpatient (CLI) | payer MEDICAID, SELFPAY ==
[2018-04-04 09:37] LABS: Basophils % 0.2 % (0.1-2.0); Eosinophils # 0.3 K/mm3 (0.0-0.4); Eosinophils % 5.3 % (0.1-12.0); Hematocrit 38.1 % (37.0-47.0); Hemoglobin 12.7 g/dL (12.2-16.2); Lymphocytes # 2.1 K/mm3 (0.7-4.5); Lymphocytes % 32.7 K/mm3 (10-50); Mean Corpuscular HGB Conc 33.3 g/dL (31.8-35.4); Mean Corpuscular Hemoglobin 30.7 pg (27.0-31.2); Mean Platelet Volume 7.4 fl (7.4-10.4); Monocytes # 0.3 K/mm3 (0.1-1.0); Monocytes % 5.2 % (1.7-9.3); Neutrophils # 3.6 K/mm3 (1.8-7.8); Neutrophils % 56.6 % (37.0-80.0); Platelet Count 207 K/mm3 (142-424); Red Blood Count 4.14 M/mm3 (4.20-5.40); Red Cell Distribution Width 13.4 % (11.5-17.5); White Blood Count 6.4 K/mm3 (4.8-10.8)
[2018-04-04 10:01] LABS: Alanine Aminotransferase 36 U/L (12-78); Albumin Level 3.7 gm/dL (3.4-5.0); Albumin/Globulin Ratio 0.9 (1.1-1.8); Alkaline Phosphatase 61 U/L (46-116); Amylase 44 U/L (25-125); Aspartate Amino Transferase 22 U/L (15-37); Bilirubin,Total 0.5 mg/dL (0.2-1.0); Blood Urea Nitrogen 13 mg/dL (7-18); Calcium 9.1 mg/dL (8.5-10.1); Carbon Dioxide 28 mmol/L (21.0-32.0); Chloride 104 mmol/L (98-107); Chol/HDL Ratio 4.3 (1-3.5); Cholesterol 184 mg/dL (140-200); Creatinine,Serum 0.73 mg/dL (0.55-1.02); Estimated Glomerular Filt Rate 90 ml/min (>60); GFR (African American) 109 ML/MIN (>60); Globulin 3.9 gm/dl (1.3-3.2); Glucose 97 mg/dL (74-106); HDL Cholesterol 43 mg/dL (29-89); LDL Cholesterol 126 mg/dL (0-130); Lipase 152 u/L (73-393); Sodium 140 mmol/L (136-145); Thyroid Stimulating Hormone 2.42 uIU/ml (0.358-3.740); Total Protein,Serum 7.6 gm/dL (6.4-8.2); Triglycerides 75 mg/dL (30-200); VLDL Cholesterol 15 mg/dL (0-40)
== END ==
PROVIDERS: PCP Internal Medicine Adolescent Medicine; Visit Provider Nurse Practitioner Family
DX: Z00.00 Encounter for general adult medical examination without abnormal findings (principal); R10.13 Epigastric pain; R10.811 Right upper quadrant abdominal tenderness; R11.0 Nausea; E03.9 Hypothyroidism, unspecified
CPT/HCPCS: 36415; 80053; 80061; 82150; 83690; 84443; 85025

== ENCOUNTER → 2018-04-08 08:55 | Outpatient (CLI) | payer MEDICAID, SELFPAY ==
--- NOTE | 2018-04-08 08:58 | US_ITS ---
US gallbladder HISTORY: ITS.REASON: Epigastric PAIN, RUQ PAIN,NAUSEA ORDERING PHYSICIAN: Perri D eLeón PATIENT AGE: 37 years Comparison: None FINDINGS: PANCREAS: Unremarkable. No obvious mass or abnormal fluid collection. No ductal dilatation LIVER: No focal liver lesions demonstrated. Homogeneous echogenicity. No intrahepatic biliary ductal dilatation evident RIGHT KIDNEY: Unremarkable. Normal size and echogenicity. No hydronephrosis GALLBLADDER: No gallstones, gallbladder wall thickening, pericholecystic fluid, or biliary dilatation. IMPRESSION: Negative gallbladder/right upper quadrant ultrasound
== END ==
PROVIDERS: Family Provider Internal Medicine; PCP Internal Medicine Adolescent Medicine; Visit Provider Nurse Practitioner Family
DX: R10.13 Epigastric pain (principal); R11.0 Nausea; R10.811 Right upper quadrant abdominal tenderness
CPT/HCPCS: 76705

== ENCOUNTER → 2018-07-05 12:54 | Outpatient (CLI) | payer MEDICAID, SELFPAY ==
--- NOTE | 2018-07-05 12:59 | MM_ITS ---
MM Dig mamm DX unilat RT CAD, US breast RT complete Ordering Physician: Messi Mejia MD Patient Age: 38 years Female COMPARISON: December 2017 mammogram and ultrasound INDICATION: 6 month follow-up to confirm stability of benign-appearing nodule. DIAGNOSTIC RIGHT MAMMOGRAM 6 month follow-up TECHNIQUE: Cc MLO view and CC nipple profile view right breast The nodular density at the upper outer quadrant right breast 11 o'clock position is again identified and unchanged on mammography 9 mm size. No new findings of right breast otherwise seen. Low-density breast with generous fatty replacement. ======== ULTRASOUND RIGHT BREAST, including axillary survey Survey entire breast was performed again and compared to the previous ultrasound from 01/04/2018. We again see the round well defined well marginated small nodule just beneath the skin at, measures up to 6.6 mm immediately adjacent to the subcutaneous dermis fatty tissue. This may be a small sebaceous cyst with this appearance.. Benign appearance and stable. Can be followed.. It is hypoechoic with some internal echoes and mild back wall enhancement. Very Well-defined margins. IMPRESSION: ======== The hypoechoic nodule/debris filled cyst upper-outer quadrant right breast is again identified and unchanged since December 2017. This resides just beneath the skin and given its appearance and stability it may reflect a small benign sebaceous cyst.. Given this a stable benign appearance on ultrasound and mammography follow-up would be adequate Bilateral mammogram 6 months recommended, to resume annual schedule. BI-RADS Category: 2 Benign Finding(s) RECOMMENDED FOLLOW-UP: 6M 6 MONTH FOLLOW-UP A letter has been sent to the patient regarding results of the study.)
== END ==
PROVIDERS: PCP Internal Medicine Adolescent Medicine; Visit Provider Internal Medicine Adolescent Medicine
DX: R92.8 Other abnormal and inconclusive findings on diagnostic imaging of breast (principal)
CPT/HCPCS: 76641; 77065

== ENCOUNTER → 2018-07-22 09:21 | Outpatient (CLI) | payer MEDICAID, SELFPAY ==
--- NOTE | 2018-07-22 09:24 | XR_ITS ---
XR foot wt bearing LT 3V, XR foot wt bearing RT 3V Ordering Physician: Suzanna Pineda DPM Patient Age: 38 years: Female HISTORY.: Pain in feet.... Left side foot pain for weeks.: pain Plantar fasciitis. Ganglion cyst. Left foot TECHNIQUE: Bilateral feet 3 views Weightbearing AP, lateral, oblique views right & left foot COMPARISON :None ====== LEFT FOOT 3 VIEWS Bones well mineralized. Joint spaces well-maintained. No fracture. No bone lesion. No significant appearing erosive changes. Only question of some very minor tiny subchondral cystic feature at the lateral margin head proximal phalanx left great toe.. No soft tissue swelling Modest plantar arch. Mild flexion of deformity at fifth and possibly fourth toe. Only some very minor osseous prominence at the insertion of plantar aponeurosis. Only minor osseous prominence here. Possible early spur. No soft tissue findings otherwise along the plantar aspect of foot. No radiopaque foreign bodies no obvious mass on plain x-ray ===== RIGHT FOOT PAIN: 3 view. Bones well mineralized. Joint spaces well-maintained. No fracture no bone lesion. No significant appearing erosive changes. . No soft tissue swelling or findings. Modest plantar arch. Tiny 1 mm plantar calcaneal spur. Similar Scant spurring at insertion of Achilles tendon . Mild Flexion deformity at fifth toe .: . ----- IMPRESSION.------- 1. No prominent findings either foot. Overall feet appear intact.... 2. Only Minor observations in text.: ... Very minor osseous prominence, at insertion of plantar aponeurosis right foot more so than left. may reflect very minor early spurring .
== END ==
PROVIDERS: PCP Internal Medicine Adolescent Medicine; Visit Provider Podiatrist
DX: M79.673 Pain in unspecified foot (principal)
CPT/HCPCS: 73630

== ENCOUNTER → 2018-11-12 15:40 | Outpatient (CLI) | payer MEDICAID, SELFPAY ==
[2018-11-12 16:21] LABS: Basophils % 0.4 % (0.1-2.0); Eosinophils # 0.2 K/mm3 (0.0-0.4); Eosinophils % 2.8 % (0.1-12.0); Hematocrit 36.4 % (37.0-47.0); Hemoglobin 12.5 g/dL (12.2-16.2); Lymphocytes # 2.4 K/mm3 (0.7-4.5); Lymphocytes % 33.2 % (10-50); Mean Corpuscular HGB Conc 34.5 g/dL (31.8-35.4); Mean Corpuscular Hemoglobin 30.3 pg (27.0-31.2); Mean Corpuscular Volume 87.8 fl (81-99); Mean Platelet Volume 6.8 fl (7.4-10.4); Monocytes # 0.4 K/mm3 (0.1-1.0); Monocytes % 5.6 % (1.7-9.3); Neutrophils # 4.2 K/mm3 (1.8-7.8); Platelet Count 286 K/mm3 (142-424); Red Blood Count 4.15 M/mm3 (4.20-5.40); Red Cell Distribution Width 12.6 % (11.5-17.5); White Blood Count 7.3 K/mm3 (4.8-10.8)
[2018-11-14 09:32] LABS: FSH 4.1 mIU/mL (.); LH 13.3 mIU/mL (.)
== END ==
PROVIDERS: Visit Provider Nurse Practitioner Obstetrics & Gynecology
DX: Z01.419 Encounter for gynecological examination (general) (routine) without abnormal findings (principal)
CPT/HCPCS: 36415; 83001; 83002; 85025

== ENCOUNTER → 2018-11-19 14:23 | Outpatient (CLI) | payer MEDICAID, SELFPAY ==
--- NOTE | 2018-11-19 14:25 | US_ITS ---
US transvaginal HISTORY: ITS.REASON: US T/V- Heavy Periods Fibroids ORDERING PHYSICIAN: Naun Rush MD PATIENT AGE: 38 years Comparison: None FINDINGS: The uterus is 9 x 4 x 6 cm with a combined endometrial thickness of 6 mm. Along the posterior aspect of the uterus there is a 2.9 x 2.5 cm area of mixed echogenicity which may be due to fibroid in the fundal region. The right ovary is 3 x 3 cm and the left ovary is 4 x 2.7 cm. There is a 2.8 cm left ovarian cyst. No cul-de-sac fluid is evident. IMPRESSION: 1. Suspected 2.9 cm uterine fibroid with bulky uterus. 2. 2.8 cm left ovarian cyst
== END ==
PROVIDERS: PCP Internal Medicine Adolescent Medicine; Visit Provider Nurse Practitioner Obstetrics & Gynecology
DX: D21.9 Benign neoplasm of connective and other soft tissue, unspecified (principal); N92.0 Excessive and frequent menstruation with regular cycle
CPT/HCPCS: 76830

== ENCOUNTER → 2020-03-01 09:03 | Outpatient (CLI) | payer OTHER, SELFPAY ==
--- NOTE | 2020-03-01 09:06 | US_ITS ---
PROCEDURE: US ABDOMEN LIMITED CLINICAL INDICATION: ABD PAIN ruq pain-- shoulder pain-- x 2 mos-- belching COMPARISON: No exams were available for comparison FINDINGS: PANCREAS: Unremarkable. No obvious mass or abnormal fluid collection. No ductal dilatation LIVER: No focal liver lesions demonstrated. Homogeneous echogenicity. No intrahepatic biliary ductal dilatation evident. There is appropriate direction of blood flow within a non dilated portal vein RIGHT KIDNEY: Unremarkable. Normal size and echogenicity. No hydronephrosis GALLBLADDER: No gallstones, gallbladder wall thickening, pericholecystic fluid, or biliary dilatation. IMPRESSION: Unremarkable limited abdominal ultrasound as detailed above disc Dictated by: Frankie Peña MD 03/01/2020 20:24 Frankie Peña MD in [place] 03/04/2020 06:35
== END ==
PROVIDERS: PCP Internal Medicine Adolescent Medicine; Visit Provider Internal Medicine Adolescent Medicine
DX: R10.11 Right upper quadrant pain (principal)
CPT/HCPCS: 76705

== ENCOUNTER 2020-06-20 19:25 | Emergency (ER) | payer OTHER, SELFPAY ==
[2020-06-20 19:30] VITALS: BP 147/88; PULSE 90; RESP 20; TEMP 37.3; O2SAT 97; BMI 49.6
[2020-06-20 19:45] VITALS: BP 147/88; PULSE 90; RESP 20; TEMP 37.3; O2SAT 97
--- NOTE | 2020-06-20 20:07 | HMH.EDUTC ---
[facility] [place] Clinical Impression: Exposure to COVID-19 virus Disposition: Home, Self-Care Condition on Discharge: Good Instructions: DI for COVID-19 (Suspected or Confirmed ), Preventing the Spread of Coronavirus Discharge Instructions Additional Instructions: increase fluids tylenol or motrin for pain or fever if symptoms worsen return or be seen in ed self isolate until test results are known to be neg Referrals: Messi Mejia MD [Primary Care Provider] - Time of Disposition: 20:17 Medical Decision Making - Jack Inquiry Pt receiving controlled substance: No Vital Signs: 06/20/20 19:30 06/20/20 19:45 Temperature 99.1 F 99.1 F Temperature Source Oral Pulse Rate 90 Pulse Rate [Right Brachial] 90 Respiratory Rate 20 20 Blood Pressure 147/88 H Blood Pressure [Right Arm] 147/88 H Blood Pressure Mean [Right Arm] 107 Blood Pressure Source [Right Arm] Automatic Cuff Blood Pressure Position [Right Arm] Sitting 02 Sat by Pulse Oximetry 97 Oxygen Delivery Method Room Air Orders (Tests/Meds): ORDERS Category Date Time Status Covid-19 Nasal PCR ([facility]) Routine Lab 06/20/20 19:35 Received [facility] [place] HPI - General Chief complaint: Urgent [facility] Stated complaint: Aches,cough,fever Exposed to COVID Time Seen by Provider: 06/20/20 20:07 Mode of Arrival: Ambulatory Source of Information: Patient Limitations: No Limitations Description of Symptoms (Recalled from Triage Doc. by RN): PATIENT REQUESTING COVID TEST D/T EXPOSURE ( TESTED POSITIVE ON SUNDAY). PATIENT C/O LOW-GRADE FEVER, BODY ACHES, DRY COUGH, AND RUNNY NOSE SINCE YESTERDAY HEENT Symptoms (Recalled from RN notes): No Resp Symptoms (Recalled from RN notes): No Skin Symptoms (Recalled from RN notes): No MS Symptoms (Recalled from RN notes): No Functional Status (Recalled from RN notes): WNL - History of Present Illness Provider Complaint: 39 yr old female presents for covid test. pt states tested positive on sunday. pt states she is having body aches, cough, tightness in chest with taking deep breaths occ, nasal congestion and low grade fever. - Related Data Home Medications Medication Instructions Recorded Confirmed lisinopriL [Zestril 10mg Tab] 10 mg PO DAILY 09/24/17 11/12/18 Azelastine HCl [Azelastine Nasal 0 mcg NS BID 11/03/18 11/12/18 [place] 30mL Bottle] Cetirizine HCl [Zyrtec] 10 mg PO DAILY 11/03/18 11/12/18 Doxycycline Hyclate [Doxycycline 100 mg PO BID 11/03/18 11/12/18 100mg Capsule] Fluticasone Propionate [Flonase 2 spr NS DAILY 11/03/18 11/12/18 50mcg nasal spray 16gm] Montelukast Sodium [Singulair 10mg 10 mg PO PM 11/03/18 11/12/18 tablet] Phentermine HCl 37.5 mg PO DAILY 11/03/18 11/12/18 buPROPion HCL [Wellbutrin Sr] 300 mg PO DAILY 11/03/18 11/12/18 albuterol 90 mcg/actuation aerosol mcg INHALATION 11/12/18 inhaler azelastine 0.05 % eye drops OPHTHALMIC #6 ml 11/12/18 11/12/18 Allergies Allergy/AdvReac Type Severity Reaction Status Date / Time escitalopram [From Lexapro] Allergy Mild Hives Verified 11/12/18 14:33 Penicillins Allergy Mild Hives Verified 11/12/18 14:33 - Worker's Comp Is this a Worker's Comp case?: No [facility] History - Hepatitis A Screen Drug use history?: No High risk sexual behaviors?: No History of sexually transmitted infection?: No Currently employed?: No Childcare worker?: No Do you have indoor plumbing?: Yes Do you have electricity?: Yes Attestation statement:: This patient has been screened for Hepatitis A risk factors. I have reviewed the patient's past medical history: Yes Medical History: Reports:: Depression, Hypertension Denies:: Cancer, Diabetes Mellitus Type 1, Diabetes Mellitus Type 2, MRSA Other Medical History: Reports: Hypothyroidism Other Surgeries: Yes: , Other (bladder scrapping) Amputation: No Fractures: Yes (Right Wrist ) - Social History Smoking Status: Never smoker Alcohol Intake: never A
--- NOTE | 2020-06-21 17:02 | PC.NURSE ---
PATIENT NOTIFIED OF POSITIVE COVID RESULT AT THIS TIME
== END 2020-06-20 20:40 | disposition home or self-care (01) ==
PROVIDERS: Emergency Provider Nurse Practitioner Family; PCP Internal Medicine Adolescent Medicine
DX: U07.1 COVID-19 (principal); I10 Essential (primary) hypertension
CPT/HCPCS: 99202; G0463; U0003

== ENCOUNTER → 2020-06-28 16:12 | Outpatient (CLI) | payer OTHER, SELFPAY ==
--- NOTE | 2020-06-28 | XR_ITS ---
PROCEDURE: XR CHEST PORTABLE CLINICAL HISTORY: Cough, Covid19 positive COMPARISON: CR CXR2V XR chest 2V from 06/28/2017 FINDINGS: The cardiomediastinal silhouette and pulmonary vascularity are within normal limits. The lungs are clear without infiltrates, suspicious nodules, or pleural effusions. No acute bony abnormalities. IMPRESSION: No acute findings. Dictated by: Frankie Peña MD 06/28/2020 17:21 Frankie Peña MD in [place] 06/28/2020 17:21
[2020-06-28 17:17] LABS: D-Dimer 0.99 ug/mL (0.0-0.5)
[2020-06-28 18:20] LABS: Chloride 103 mmol/L (98-107); Potassium 4.5 mmoL/L (3.5-5.1); Sodium 138 mmol/L (136-145)
[2020-06-28 18:22] LABS: Alanine Aminotransferase 18 U/L (12-78); Alkaline Phosphatase 72 U/L (38-126); Anion Gap 12.5 mEq/L (5-15); Aspartate Amino Transferase 24 U/L (14-36); Bilirubin,Total 0.4 mg/dl (0.2-1.3); Blood Urea Nitrogen 12 mg/dl (7-17); Carbon Dioxide 27 mmol/L (22.0-30.0); Estimated Glomerular Filt Rate 93 ml/min (>60); GFR (African American) 112 ML/MIN (>60)
[2020-06-28 18:23] LABS: Albumin Level 4.5 g/dl (3.5-5.0); Albumin/Globulin Ratio 1.2 (1.1-1.8); Calcium 9.7 mg/dl (8.4-10.2); Globulin 3.7 g/dL (1.3-3.2); Glucose 96 mg/dl (74-100); Total Protein,Serum 8.2 g/dl (6.3-8.2)
[2020-06-28 19:05] LABS: Basophils % 0.6 % (0.1-2.0); Eosinophils # 0.2 K/mm3 (0.0-0.4); Eosinophils % 3.3 % (0.1-12.0); Hematocrit 44.5 % (37.0-47.0); Hemoglobin 14.3 g/dL (12.2-16.2); Lymphocytes # 2.6 K/mm3 (0.7-4.5); Lymphocytes % 38.5 % (10-50); Mean Corpuscular HGB Conc 32.2 g/dL (31.8-35.4); Mean Corpuscular Hemoglobin 29.4 pg (27.0-31.2); Mean Corpuscular Volume 91.4 fl (81-99); Mean Platelet Volume 7.7 fl (7.4-10.4); Monocytes # 0.4 K/mm3 (0.1-1.0); Monocytes % 6.4 % (1.7-9.3); Neutrophils # 3.5 K/mm3 (1.8-7.8); Neutrophils % 51.2 % (37.0-80.0); Platelet Count 257 K/mm3 (142-424); Red Blood Count 4.87 M/mm3 (4.20-5.40); Red Cell Distribution Width 13.8 % (11.5-17.5); White Blood Count 6.8 K/mm3 (4.8-10.8)
== END ==
PROVIDERS: PCP Nurse Practitioner Family; Visit Provider Nurse Practitioner Family
DX: U07.1 COVID-19 (principal); R07.9 Chest pain, unspecified; R06.02 Shortness of breath
CPT/HCPCS: 36415; 71045; 80053; 85025; 85378

== ENCOUNTER → 2020-06-29 12:50 | Outpatient (CLI) | payer OTHER, SELFPAY ==
--- NOTE | 2020-06-29 12:55 | CT_ITS ---
PROCEDURE: CT ANGIO CHEST CLINCIAL INDICATION: COVID,CHEST PAIN,UPPER RESPIRATORY TRACT INF COMPARISON: No exams were available for comparison TECHNIQUE: IV Contrast: 70ML Isovue 370 Axial images obtained with sagittal and coronal reformats. All CT scans at the facility use one or more dose reduction, viz: automated exposure control, ma/kV adjustment per patient size (including targeted exams where dose is matched to indication, i.e. head), or iterative reconstruction technique. FINDINGS: HEART AND MEDIASTINAL STRUCTURES: No evidence of aortic aneurysm, dissection, or pulmonary embolus. No mediastinal or hilar mass. Calcified nodes are present in the mediastinum LUNGS AND PLEURAL SPACES: Motion artifact somewhat obscures fine detail. 4 mm nodular opacity is present in the left lower lobe anteriorly image 57 series 3 BONY STRUCTURES: No acute bony abnormalities apparent. UPPER ABDOMEN: Mild splenomegaly at 14 cm ADDITIONAL FINDINGS: No other significant abnormalities. IMPRESSION: No acute finding. No evidence of pulmonary embolus. 4 mm left lower lobe nodule nonspecific. Splenomegaly Dictated by: Frankie Peña MD 06/29/2020 19:33 Frankie Peña MD in [place] 06/29/2020 19:33
== END ==
PROVIDERS: PCP Nurse Practitioner Family; Visit Provider Nurse Practitioner Family
DX: U07.1 COVID-19 (principal); R07.9 Chest pain, unspecified; J06.9 Acute upper respiratory infection, unspecified
CPT/HCPCS: 71275; Q9967

== ENCOUNTER → 2021-01-15 08:36 | Outpatient (CLI) | payer OTHER, SELFPAY ==
[2021-01-15 09:30] LABS: Basophils % 0.7 % (0.1-2.0); Eosinophils # 0.1 K/mm3 (0.0-0.4); Eosinophils % 3.1 % (0.1-12.0); Hematocrit 47.5 % (37.0-47.0); Hemoglobin 15.9 g/dL (12.2-16.2); Lymphocytes # 1.9 K/mm3 (0.7-4.5); Lymphocytes % 50.1 % (10-50); Mean Corpuscular HGB Conc 33.5 g/dL (31.8-35.4); Mean Corpuscular Hemoglobin 29.7 pg (27.0-31.2); Mean Corpuscular Volume 88.7 fl (81-99); Mean Platelet Volume 8.6 fl (7.4-10.4); Monocytes # 0.2 K/mm3 (0.1-1.0); Monocytes % 4.7 % (1.7-9.3); Neutrophils # 1.6 K/mm3 (1.8-7.8); Neutrophils % 41.5 % (37.0-80.0); Red Blood Count 5.36 M/mm3 (4.20-5.40); Red Cell Distribution Width 13.9 % (11.5-17.5); White Blood Count 3.9 K/mm3 (4.8-10.8)
[2021-01-15 09:38] LABS: MANUAL DIFFERENTIAL MANUAL DIFFERENTIAL (MANUAL DIFF); Platelet Count 254 K/mm3 (142-424)
[2021-01-15 09:49] LABS: Hemoglobin A1C 5.2 % (4.0-6.0)
[2021-01-15 10:08] LABS: Lymphocytes % 46 % (10-50); Monocytes % 2 % (2-9); Neutrophils % 52 % (42-76); RBC Morphology Normal; Total Cells Counted 100
[2021-01-15 10:09] LABS: Platelet Estimate Normal
[2021-01-15 10:31] LABS: Alanine Aminotransferase 19 U/L (12-78); Albumin Level 4.3 g/dl (3.5-5.0); Albumin/Globulin Ratio 1.3 (1.1-1.8); Alkaline Phosphatase 65 U/L (38-126); Anion Gap 12.9 mEq/L (5-15); Aspartate Amino Transferase 26 U/L (14-36); Bilirubin,Total 0.5 mg/dl (0.2-1.3); Blood Urea Nitrogen 17 mg/dl (7-17); Calcium 9.3 mg/dl (8.4-10.2); Carbon Dioxide 27 mmol/L (22.0-30.0); Chloride 103 mmol/L (98-107); Cholesterol 212 mg/dl (140-200); Estimated Glomerular Filt Rate 93 ml/min (>60); GFR (African American) 112 ML/MIN (>60); Globulin 3.2 g/dL (1.3-3.2); Glucose 92 mg/dl (74-100); HDL Cholesterol 42 mg/dl (40-60); Magnesium 1.9 mg/dl (1.6-2.3); Phosphorous 3.9 mg/dl (2.5-4.5); Potassium 4.9 mmoL/L (3.5-5.1); Sodium 138 mmol/L (136-145); Total Protein,Serum 7.5 g/dl (6.3-8.2); Triglycerides 98 mg/dl (30-150); VLDL Cholesterol 20 mg/dL (0-40)
[2021-01-15 10:43] LABS: Intact Parathyroid Hormone 39.8 pg/mL (7.5-53.5)
[2021-01-15 10:47] LABS: 25-OH Vitamin D, Total 28.4 ng/mL (30-100)
[2021-01-15 11:02] LABS: Thyroid Stimulating Hormone 3.22 uIU/mL (0.465-4.68)
[2021-01-15 11:37] LABS: Folate 9.96 ng/mL
[2021-01-15 11:50] LABS: Iron 89 ug/dL (37-170)
[2021-01-16 08:25] LABS: Prealbumin 20 mg/dL (14-35)
[2021-01-18 23:07] LABS: Methylmalonic Acid 261 nmol/L (0-378)
[2021-01-19 13:12] LABS: Vitamin A 38.2 ug/dL (20.1-62.0); Vitamin E Gamma Tocopherol 2.8 mg/L (0.5-5.5)
[2021-01-19 20:09] LABS: Vitamin B1 138.7 nmol/L (66.5-200.0)
== END ==
PROVIDERS: Visit Provider Physician Assistant
DX: R03.0 Elevated blood-pressure reading, without diagnosis of hypertension (principal); E78.5 Hyperlipidemia, unspecified; E55.9 Vitamin D deficiency, unspecified; E66.01 Morbid (severe) obesity due to excess calories; Z71.3 Dietary counseling and surveillance
CPT/HCPCS: 36415; 80053; 80061; 82131; 82306; 82728; 82746; 83036; 83540; 83735; 83970; 84100; 84134; 84425; 84443; 84446; 84590; 85007; 85025

== ENCOUNTER → 2021-07-05 15:51 | Outpatient (CLI) | payer OTHER, SELFPAY | PROVIDERS: PCP Internal Medicine Adolescent Medicine; Visit Provider Nurse Practitioner | DX: U07.1 COVID-19 (principal) | CPT/HCPCS: C9803; U0003; U0005 ==

== ENCOUNTER → 2021-07-14 12:20 | Outpatient (CLI) | payer OTHER, SELFPAY ==
--- NOTE | 2021-07-14 | CA_ITS ---
APPROVED REPORT Exam: Pharmacologic Technologist: Katerin Edwards, Ht: 5 ft 3 in Wt: 282 lbs BSA: 2.24 m2 HR: 86 bpm BP: 119/68 mmHg Rhythm: NSR, right axis deviation, low voltage QRS Medical History Medical History: HTN Medications: Lisinopril,,,,, Albuterol,,,,, BuPROPION,,,,, FluTICASONE,,,,, CetIRIZINE,,,,, AZelastine,,,,, Proplonate,,,,, Stress Test Details Test: LEXISCAN HR Resting HR: 94 bpm Max Heart Rate (APMHR): 179.439958 bpm Max HR Achieved: 131 bpm Target HR (85% APMHR): 152.438394 bpm % of APMHR: 73.18 Recovery HR: 98 bpm BP Resting BP: 119/68 mmHg Max BP: 119/68 mmHg Recovery BP: 117.0/53.0 mmHg ECG Resting ECG: NSR, right axis deviation, low voltage QRS Clinical Exercise duration: 04:01 min Highest Stage Achieved: Stress ECG Conclusion During lexiscan pt experinced mild SOA and light headed. No CP. No arrthymias noted. No significant ST changes. Unremarkable lexiscan. Myoview images reported separately. Test Summary RECOVERY 03:19 . . 96 . 106/ 53 . . REST 04:33 . . 94 . 119/ 68 . . Stage 1 01:00 . . 130 . . . . Stage 2 01:00 . . 115 . 119/ 54 . . Stage 3 01:00 . . 108 . . . . Stage 4 01:00 . . 103 . 100/ 48 . . Stage 4 01:01 . . 103 . 100/ 48 . Stop exercise at 04:01 RECOVERY 01:00 . . 103 . . . . RECOVERY 02:00 . . 100 . 117/ 53 . . RECOVERY 03:00 . . 93 . 106/ 53 . . RECOVERY 03:19 . . 96 . 106/ 53 . . Electronically signed by : Maximo Mcdowell MD 07/15/2021 09:11:03
--- NOTE | 2021-07-14 12:20 | NM_ITS ---
APPROVED REPORT Exam: Nuclear Stress Test Indication: HTN, ABN EKG, PRE-OP Patient Location: Outpatient Stress Tech: Katerin Edwards NM Tech:Rosina TerrazasJOSHUA RT(R)(N) Ht: 5 ft 3 in Wt: 282 lbs Bra Size: C HR: 86 bpm BP: 119/68 mmHg BSA: 2.24 m2 BMI: 49.9 History: HTN, ABN EKG, PRE-OP Procedure: Patient received a 0.4 mg of intravenous Lexiscan, resting heart rate 86 bpm, resting blood pressure 119/68 mmHg, with Lexiscan maximum heart rate achived was 100 bpm which is Less than 85 % of the maximum predicted heart rate and blood pressure was 100/48 mmHg. With Lexiscan, patient denied any complaint of chest pain. Electrocardiogram Resting electrocardiogram shows sinus rhythm, with Lexiscan there is less than 1.[address] segment depression noted from the baseline EKG. The EKG portion of the Lexiscan is nondiagnostic. Cardiac Stress and Resting SPECT Images: Cardiac Stress and Resting SPECT images were obtained using technetium 99m Myoview 32.6 mCi stress and 10.20 mCi at rest. Gated SPECT for analysis of segmental wall motion and calculation of the ejection fraction also done. Cardiac stress and rest SPECT images show uniform myocardial activity without segmental perfusion abnormality, computer derived ejection fraction is over 65% with no regional wall motion abnormality, right ventricle is normal size and contractility. Conclusion: 1. The EKG portion of the Lexiscan is nondiagnostic. 2. No scintigraphic evidence of reversible ischemia seen, computer derived ejection fraction is over 65% with no regional wall motion abnormality, right ventricle is normal size and contractility. 3. Normal Lexiscan Myoview study. Electronically signed by : Maximo Mcdowell MD 07/15/2021 09:15:12
--- NOTE | 2021-07-14 13:00 | CA_ITS ---
APPROVED REPORT EXAM: Comprehensive 2D, Doppler, and color-flow Echocardiogram Fire Prevention Engineer: Sarita Araujo RVT Ht: 5 ft 3 in Wt: 282lbs BSA: 2.24 BP: 140/90 mmHg Indications: ABN EKG,CLEARANCE FOR BARIATRIC SURGERY,HTN,OBESITY,SYNCOPE Echo Enhancing Agent Indication: Endocardial border delineation Agent(s) / Amount(s) Used: Definity 2 cc 2D Dimensions LVOT 2.18 cm (M/F) 1.5-2.5 LA Volume 40.60 mL LA Volume Index 18.20 mL/m2 (M/F) 16-34 M-Mode Dimensions RVDd 1.01 cm (0.9-2.6) LA Diam 3.59 cm (1.9-4.0) LVDd 5.24 cm (3.5-5.7) Ao Diam 2.83 cm (2.0-3.7) LVDs 4.47 cm (3.5-5.7) IVSd 0.64 cm (0.6-1.1) PWd 0.60 cm (0.6-1.1) EF (Teich) 53.80% FS 28.40% EDV (Teich) 196.90 mL ESV (Teich) 91.00 mL LV Diastology E Decel Time 150.00 (160-240 msec) E/A Ratio 1.2 MED E' 6.80 (< 7 cm/sec) E'/MED E' Ratio 11.29 (>14) LAT E' 14.80 (<10 cm/sec) E/LAT E' Ratio 5.19 (>14) Aortic Valve AO Peak GR. 8.40 mmHg Mitral Valve MV E Max Mario. 77.00 (40-130 cm/s) MV A Velocity 66.00 (40-130 cm/s) E/A Ratio 1.17 MV Decel. Time 150.00 (160-240 ms) MV PHT 44.00 ms Pulmonary Valve PV Peak Velocity 99.00 (50-150 cm/s) Left Ventricle Left atrium is normal size, left ventricle is normal size, visually estimated ejection fraction 55% with no regional wall motion abnormality, left ventricle wall thickness is upper limit of normal, diastolic parameters are inconclusive in the study. Right Ventricle Right atrium and right ventricle are relatively normal size and function. Aortic Valve Aortic valve is grossly normal, there is no aortic stenosis or aortic insufficiency. Mitral Valve Mitral valve grossly normal, there is trace mitral regurgitation. Tricuspid Valve Tricuspid valve grossly normal, there is trace tricuspid regurgitation, tricuspid regurgitation jet velocity is inadequate for calculation of the right ventricular systolic pressure. Pulmonic Valve Pulmonic valve is poorly visualized. Great Vessels Aortic root is normal size. Inferior vena cava is poorly visualized. Pericardium No significant pericardial effusion noted. Conclusion 1. Normal left ventricular size, preserved left ventricular systolic function, visually estimated ejection fraction 55% with no regional wall motion abnormality, diastolic parameters are inconclusive in the study. 2. Trace mitral and tricuspid regurgitation. 3. No significant pericardial effusion 4. Inferior vena cava is poorly visualized. Electronically signed by : Maximo Mcdowell MD 07/15/2021 12:49:42
== END ==
PROVIDERS: PCP Internal Medicine Adolescent Medicine; Visit Provider Urology
DX: Z01.810 Encounter for preprocedural cardiovascular examination (principal); I10 Essential (primary) hypertension; R94.31 Abnormal electrocardiogram [ECG] [EKG]
CPT/HCPCS: 78452; 93017; 93306; A9502; J2785; Q9957

== ENCOUNTER → 2021-07-19 08:58 | Outpatient (CLI) | payer OTHER, SELFPAY ==
[2021-07-19 11:13] LABS: Chloride 102 mmol/L (98-107)
[2021-07-19 11:14] LABS: Potassium 4.5 mmoL/L (3.5-5.1); Sodium 137 mmol/L (136-145)
[2021-07-19 11:16] LABS: Alanine Aminotransferase 16 U/L (12-78); Anion Gap 13.5 mEq/L (5-15); Aspartate Amino Transferase 27 U/L (14-36); Bilirubin,Unconjugated 0.3 mg/dL (0.0-1.1); Blood Urea Nitrogen 13 mg/dl (7-17); Carbon Dioxide 26 mmol/L (22.0-30.0); Estimated Glomerular Filt Rate 92 ml/min (>60); GFR (African American) 112 ML/MIN (>60)
[2021-07-19 11:17] LABS: Albumin Level 4.7 g/dl (3.5-5.0); Alkaline Phosphatase 71 U/L (38-126); Bilirubin,Direct 0.3 mg/dl (0.0-0.4); Bilirubin,Indirect 0.3 mg/dL (0.0-0.9); Bilirubin,Total 0.6 mg/dl (0.2-1.3); Calcium 9.6 mg/dl (8.4-10.2); Chol/HDL Ratio 4.3 (1-3.5); Cholesterol 187 mg/dl (140-200); Glucose 82 mg/dl (74-100); HDL Cholesterol 44 mg/dl (40-60); Total Protein,Serum 7.9 g/dl (6.3-8.2); Triglycerides 76 mg/dl (30-150); VLDL Cholesterol 15 mg/dL (0-40)
[2021-07-19 11:28] LABS: Direct LDL Cholesterol 117.85 mg/dL (100-129)
== END ==
PROVIDERS: PCP Internal Medicine Adolescent Medicine; Visit Provider Physician Assistant
DX: Z01.810 Encounter for preprocedural cardiovascular examination (principal); I10 Essential (primary) hypertension
CPT/HCPCS: 36415; 80048; 80061; 80076

== ENCOUNTER → 2021-09-22 15:50 | Outpatient (CLI) | payer OTHER, SELFPAY ==
--- NOTE | 2021-09-22 15:53 | XR_ITS ---
FINAL REPORT CLINICAL HISTORY: ELEVATED BP/ HEARTBURN/ DYSLIPIDEMIA FINDINGS: Two views of the chest were obtained. The heart size and pulmonary vascularity are within normal limits. The mediastinum is normal. No acute pulmonary abnormality is identified. There is no pneumothorax. The bony thorax is intact. IMPRESSION: No active cardiopulmonary disease. Reviewed, Interpreted and Dictated by Kyle Rice III, MD Transcribed by Sandra Keller Authenticated by Kyle Rice III, MD on 09/22/2021 04:35:37 PM [facility]
== END ==
PROVIDERS: PCP Internal Medicine Adolescent Medicine; Visit Provider Surgery
DX: E78.5 Hyperlipidemia, unspecified (principal); R03.0 Elevated blood-pressure reading, without diagnosis of hypertension; R12 Heartburn
CPT/HCPCS: 71046

== ENCOUNTER 2021-10-30 09:14 | Emergency (ER) | payer OTHER, SELFPAY ==
[2021-10-30 09:25] VITALS: BP 131/89; PULSE 72; RESP 19; TEMP 36.8; O2SAT 99; BMI 41.8
--- NOTE | 2021-10-30 09:59 | HMH.EDUTC ---
[facility] [place] Clinical Impression: Sinusitis Qualifiers: Sinusitis location: maxillary Chronicity: acute Recurrence: non-recurrent Qualified Code(s): J01.00 - Acute maxillary sinusitis, unspecified Disposition: Home, Self-Care Condition on Discharge: Good Instructions: DI for Sinusitis Additional Instructions: Start antibiotic patient to take as ordered for a full length of time even if you feel better. Sinus infections do not get better overnight. It may take 2-3 days to notice much improvement so be sure to use conservative measures as discussed for symptoms. Flonase 1 spray each nostril daily to help with nasal congestion, sinus and ear pressure/information Increase fluids Humidifier/vaporizer as needed Tylenol and ibuprofen as needed for fever or pain. If symptoms do not improve or get worse return or be seen in the ER Follow-up with primary care this week Prescriptions: Fluticasone Propionate [Flonase 50mcg nasal spray 16gm] 1 spr NS DAILY 7 Days #9.9 ml Transmission Status: Pending to [facility] predniSONE [Prednisone 20mg Tab] 20 mg PO BID #10 tab Transmission Status: Pending to [facility] Azithromycin [Zithromax 250mg tab] 250 mg PO DIRECTED #6 tab Transmission Status: Pending to [facility] Referrals: Deacon Goode MD [Primary Care Provider] - Time of Disposition: 10:05 Medical Decision Making - Jack Inquiry Pt receiving controlled substance: No Vital Signs: 10/30/21 09:25 Temperature 98.3 F Temperature Source Oral Pulse Rate [Right Brachial] 72 Respiratory Rate 19 Blood Pressure [Right Arm] 131/89 Blood Pressure Mean [Right Arm] 103 Blood Pressure Source [Right Arm] Automatic Cuff Blood Pressure Position [Right Arm] Sitting 02 Sat by Pulse Oximetry 99 Oxygen Delivery Method Room Air [facility] [place] HPI - General Chief complaint: Urgent Treatment Center Stated complaint: sinus pressure Time Seen by Provider: 10/30/21 09:59 Mode of Arrival: Ambulatory Source of Information: Patient Limitations: No Limitations Description of Symptoms (Recalled from Triage Doc. by RN): PATIENT C/O SORE THROAT, COUGH, CONGESTION, FLUID IN EARS, AND CHEST BURNING X 3 DAYS HEENT Symptoms (Recalled from RN notes): Yes Resp Symptoms (Recalled from RN notes): Yes Skin Symptoms (Recalled from RN notes): No MS Symptoms (Recalled from RN notes): No Functional Status (Recalled from RN notes): WNL - History of Present Illness Provider Complaint: 41 yr old female presnets for sore throat, sinus pressure, yellow/green drainage, and ears feeling full. - Related Data Home Medications Medication Instructions Recorded Confirmed Amlodipine Besylate [Norvasc 5mg 5 mg PO DAILY 10/30/21 10/30/21 tablet] Omeprazole [Omeprazole 20mg 20 mg PO DAILY 10/30/21 10/30/21 Capsule] lisinopriL [Lisinopril] 20 mg PO DAILY 10/30/21 10/30/21 Previous Rx's Medication Instructions Recorded Azithromycin [Zithromax 250mg 250 mg PO DIRECTED #6 tab 10/30/21 tab] Fluticasone Propionate [Flonase 1 spr NS DAILY 7 Days #9.9 ml 10/30/21 50mcg nasal spray 16gm] predniSONE [Prednisone 20mg 20 mg PO BID #10 tab 10/30/21 Tab] Allergies Allergy/AdvReac Type Severity Reaction Status Date / Time escitalopram [From Lexapro] Allergy Mild Hives Verified 07/19/21 08:33 Penicillins Allergy Mild Hives Verified 07/19/21 08:33 - Worker's Comp Is this a Worker's Comp case?: No [facility] History - Hepatitis A Screen Attestation statement:: This patient has been screened for Hepatitis A risk factors. I have reviewed the patient's past medical history: Yes Medical History: Reports:: Depression, Hypertension Denies:: Cancer, Diabetes Mellitus Type 1, Diabetes Mellitus Type 2, MRSA Other Medical History: Reports: Hypothyroidism Other Surgeries: Yes: , Other (bladder scrapping) Amputation: No Fractures: Yes (Right Wrist ) - Social History Smoking Status: Never smok
[2021-10-30 10:07] VITALS: BP 131/89; PULSE 72; RESP 19; TEMP 36.8; O2SAT 99
== END 2021-10-30 10:11 | disposition home or self-care (01) ==
PROVIDERS: Emergency Provider Nurse Practitioner Family; PCP Internal Medicine Adolescent Medicine
DX: J01.00 Acute maxillary sinusitis, unspecified (principal); Z88.0 Allergy status to penicillin; Z88.8 Allergy status to other drugs, medicaments and biological substances
CPT/HCPCS: 99212; G0463

== ENCOUNTER → 2022-02-28 14:24 | Outpatient (CLI) | payer OTHER, SELFPAY ==
--- NOTE | 2022-02-28 14:29 | MM_ITS ---
PROCEDURE INFORMATION: Exam: US Right Breast, Complete US Left Breast, Complete MG Bilateral Diagnostic Breast Tomosynthesis Exam date and time: 02/28/2022 2:41 PM Age: 41 years old Clinical indication: Palpable RT breast . PT. States she feels knot under lt. [place]pit TECHNIQUE: Imaging protocol: Complete ultrasound of all four quadrants of the Right breast and the retroareolar regions, including ultrasound of the axilla when performed. Complete ultrasound of all four quadrants of the Left breast and the retroareolar regions, including ultrasound of the axilla when performed. Bilateral Diagnostic tomosynthesis and 2D mammography including computer-aided detection (CAD) when performed. Unilateral or bilateral exam. COMPARISON: 1. MG DXRT MM Dig mamm DX unilat RT CAD 07/05/2018 1:09 PM 2. MG DXBI MM Dig mamm BI DX w/CAD 01/04/2018 2:40 PM FINDINGS: MAMMOGRAPHY: Breast composition: The breasts are almost entirely fatty. A skin marker was placed over the palpable abnormality in the posterior right 12 o'clock axis. The spot compression views demonstrate adipose tissue structures. There is no stellate mass, architectural distortion or suspicious microcalcifications in either breast to suggest malignancy. No skin thickening or axillary adenopathy. ULTRASOUND: Sonographic images of both breasts including the retroareolar regions, all 4 quadrants and the axilla do not demonstrate any solid masses. No focal findings in the superior right breast where the patient reports a palpable abnormality. Incidental 0.4 cm cyst in the right 11 o'clock axis 11 cm from the nipple. No architectural distortion or acoustical shadowing. No skin thickening or axillary adenopathy. No focal findings in the left axilla. IMPRESSION: No mammographic or sonographic evidence of malignancy. Further evaluation of a palpable abnormality should be based on clinical grounds regardless of radiographic findings or lack thereof.Annual bilateral mammographic screening is recommended unless otherwise clinically indicated. ASSESSMENT: BI-RADS Category 2: Benign
== END ==
PROVIDERS: PCP Internal Medicine Adolescent Medicine; Visit Provider Nurse Practitioner Family
DX: N64.4 Mastodynia (principal); N63.11 Unspecified lump in the right breast, upper outer quadrant; N63.21 Unspecified lump in the left breast, upper outer quadrant
CPT/HCPCS: 76641; 77062; 77066; G0279

== ENCOUNTER → 2022-04-15 08:06 | Outpatient (CLI) | payer OTHER, SELFPAY ==
[2022-04-15 08:53] LABS: Basophils # 0.1 K/mm3 (0-0.2); Eosinophils # 0.2 K/mm3 (0.0-0.4); Eosinophils % 4.3 % (0.1-12.0); Hematocrit 39.6 % (37.0-47.0); Hemoglobin 12.6 g/dL (12.2-16.2); Lymphocytes # 1.7 K/mm3 (0.7-4.5); Lymphocytes % 37.4 % (10-50); Mean Corpuscular HGB Conc 31.8 g/dL (31.8-35.4); Mean Corpuscular Hemoglobin 30.2 pg (27.0-31.2); Mean Corpuscular Volume 94.8 fl (81-99); Mean Platelet Volume 8.1 fl (7.4-10.4); Monocytes # 0.2 K/mm3 (0.1-1.0); Monocytes % 4.9 % (1.7-9.3); Neutrophils # 2.4 K/mm3 (1.8-7.8); Neutrophils % 52.4 % (37.0-80.0); Platelet Count 205 K/mm3 (142-424); Red Blood Count 4.18 M/mm3 (4.20-5.40); Red Cell Distribution Width 13.4 % (11.5-17.5); White Blood Count 4.5 K/mm3 (4.8-10.8)
[2022-04-15 09:50] LABS: Chloride 103 mmol/L (98-107)
[2022-04-15 09:51] LABS: Potassium 4.3 mmoL/L (3.5-5.1); Sodium 139 mmol/L (136-145)
[2022-04-15 09:53] LABS: Alanine Aminotransferase 9 U/L (12-78); Alkaline Phosphatase 70 U/L (38-126); Anion Gap 14.3 mEq/L (5-15); Aspartate Amino Transferase 20 U/L (14-36); Bilirubin,Total 0.4 mg/dl (0.2-1.3); Blood Urea Nitrogen 16 mg/dl (7-17); Carbon Dioxide 26 mmol/L (22.0-30.0); Estimated Glomerular Filt Rate 110 ml/min (>60); GFR (African American) 133 ML/MIN (>60)
[2022-04-15 09:54] LABS: Albumin/Globulin Ratio 1.5 (1.1-1.8); Calcium 9.1 mg/dl (8.4-10.2); Chol/HDL Ratio 4.2 (1-3.5); Cholesterol 191 mg/dl (140-200); Globulin 2.6 g/dL (1.3-3.2); Glucose 81 mg/dl (74-100); HDL Cholesterol 45 mg/dl (40-60); Iron 58 ug/dL (37-170); Total Protein,Serum 6.6 g/dl (6.3-8.2); Triglycerides 68 mg/dl (30-150); VLDL Cholesterol 14 mg/dL (0-40)
[2022-04-15 10:04] LABS: Total Iron Binding Capacity 378 ug/dL (265-497)
[2022-04-15 10:05] LABS: Direct LDL Cholesterol 105.11 mg/dL (100-129)
[2022-04-15 10:29] LABS: Ferritin 6.73 ng/ml (6.24-137)
[2022-04-15 11:54] LABS: Folate 2.76 ng/mL
[2022-04-19 09:49] LABS: Vitamin B1 78.1 nmol/L (66.5-200.0)
[2022-04-20 12:16] LABS: Methylmalonic Acid 453 nmol/L (0-378)
[2022-04-23 02:07] LABS: Vitamin A 22.3 ug/dL (20.1-62.0); Vitamin E Alpha Tocopherol 7.8 mg/L (7.0-25.1)
== END ==
PROVIDERS: PCP Internal Medicine Adolescent Medicine; Visit Provider Nurse Practitioner Family
DX: Z90.3 Acquired absence of stomach [part of] (principal); E55.9 Vitamin D deficiency, unspecified; Z79.899 Other long term (current) drug therapy
CPT/HCPCS: 36415; 80053; 80061; 82131; 82306; 82728; 82746; 83036; 83540; 83550; 84425; 84446; 84590; 85025

== ENCOUNTER 2022-07-27 13:58 | Emergency (ER) | payer OTHER, SELFPAY ==
[2022-07-27] VITALS (7 sets, daily range): BP systolic 117–144; BP diastolic 80–97; PULSE 68–88; RESP 15–18; TEMP 36.6–36.8; O2SAT 99–100; BMI 33.1
--- NOTE | 2022-07-27 13:58 | ECG_ITS ---
APPROVED REPORT Exam: Resting ECG HR:80 bpm ECG Measurements Heart Rate 80 AXES PA 184 P 70 QRSd 87 QRS 104 QT 373 T 5 QTc 409 Conclusion SINUS RHYTHM RIGHT AXIS DEVIATION [QRS AXIS > 100] NONSPECIFIC T-WAVE ABNORMALITY ABNORMAL ECG UNCONFIRMED REPORT Electronically signed by : Messi Mejia MD 07/27/2022 17:26:44
--- NOTE | 2022-07-27 14:11 | XR_ITS ---
FINAL REPORT CLINICAL HISTORY: epigastric pain COMPARISON: 09/22/2021 FINDINGS: 2 views of the chest were obtained . The heart is normal in size. The mediastinum is within normal limits. The lungs are clear. There is no pneumothorax. Osseous structures are unremarkable. IMPRESSION: No acute cardiopulmonary process. Reviewed, Interpreted and Dictated by Steffen Mooney MD Transcribed by Rebeca Greene Authenticated and [facility]
--- NOTE | 2022-07-27 14:22 | CT_ITS ---
FINAL REPORT TECHNIQUE: After the administration of oral and intravenous contrast, axial images were obtained through the abdomen and pelvis by computed tomography. The study was performed with techniques to keep radiation dose as low as reasonably achievable, (ALARA). Individual dose reduction techniques using automated exposure control or adjustment of mA and/or kV according to the patient's size were employed. CLINICAL HISTORY: EPIGASTRIC PAIN WITH NAUSEA HX OF GASTRIC SLEEVE TUBAL FINDINGS: Abdomen: The lung bases are clear. The liver parenchyma is homogeneous. The gallbladder is present. The spleen, pancreas, adrenals and kidneys appear unremarkable. The aorta is normal in caliber. There is no free fluid or adenopathy. There are postoperative changes from prior gastric sleeve. Pelvis: The appendix appears unremarkable. The uterus is anteverted. There are bilateral tubal ligation clips. The urinary bladder is unremarkable. There is no free fluid or adenopathy. IMPRESSION: No acute intra-abdominal process. Postoperative changes as above. Reviewed, Interpreted and Dictated by Steffen Mooney MD Transcribed by Sandra Keller Authenticated and [facility]
--- NOTE | 2022-07-27 14:26 | HMH.EDGENADL ---
Discharge Plan Disposition Patient Disposition: Home, Self-Care Condition: Good Chief Complaint: Chest Pain Prescriptions Prescriptions: No Action lisinopril 20 MG tablet 20 mg PO DAILY amlodipine 5 MG tablet 5 mg PO DAILY fluticasone propionate 120 SPR/BOT bottle 1 spr NS DAILY 7 Days Qty: 9.9 0RF omeprazole 20 mg capsule,delayed release(DR/EC) 20 mg PO BID Referrals Follow up/Referrals: Provider,Referral, MD [Referring] - See instructions Activity Restrictions/Add. Instructions Additional Instructions/Restrictions: Continue current medications. Additional instructions for ABDOMINAL PAIN: See your physician as soon as possible for further evaluation. Return immediately if worsening abdominal pain, vomiting, shortness of breath, fever, vomiting of blood or abdominal distention. Clinical Impressions Clinical Impression: Acute epigastric pain Instructions Patient Instructions: DI for Abdominal Pain-Adult Discharge ED Provider: Angel Luis Gutierrez General Adult HPI General Chief complaint: Chest Pain Stated complaint: Epigastric pain Time Seen by Provider: 07/27/22 14:10 Mode of Arrival: Ambulatory Source of Information: Patient Limitations: No Limitations Description of Symptoms (Recalled from ER Triage Doc. by RN): pt to ED with epigatric x 2 weeks. pt reports that it happens after every meal. pt is currently taking GERD medications and has seen her PCP and is due to have an upper GI scope in the morning. pt describes it as a burning sensation and rates it a 6 at this time History of Present Illness HPI narrative: Patient complains of epigastric pain. She is been getting it off and on for 2 weeks. Happens after she eats and usually lasts 30 to 60 minutes. This episode is lasted more than an hour. Associated with nausea, but no vomiting or diarrhea. She has a bariatric physician because she has had a previous gastric sleeve. She has seen her bariatric physician for this and is on medications including omeprazole, Pepcid, Carafate, and amitriptyline without improvement. She has an upper GI x-ray scheduled for tomorrow. She says she has not yet had a gallbladder work-up done. She says they wanted to do the upper GI first. She last ate 1 hour prior to coming to the emergency department. She had a gallbladder ultrasound done 5 years ago at this facility that was negative. Related Data Home Medications Medication Instructions Recorded Confirmed amlodipine 5 mg tablet 5 mg PO DAILY Hypertension 10/30/21 12/20/21 lisinopril 20 mg tablet 20 mg PO DAILY Hypertension 10/30/21 12/20/21 omeprazole 20 mg capsule,delayed 20 mg PO BID GERD 12/20/21 12/20/21 release Previous Rx's Medication Instructions Recorded fluticasone propionate 50 1 spr intranasal DAILY 7 days #9.9 10/30/21 mcg/actuation nasal mL spray,suspension Allergies Allergy/AdvReac Type Severity Reaction Status Date / Time escitalopram [From Lexapro] Allergy Mild Hives Verified 12/20/21 10:34 Penicillins Allergy Mild Hives Verified 12/20/21 10:34 [facility] Disclaimer: The information contained in this section may have been updated after the patient was seen, as this information can be updated by other users. Social History Smoking Status: Never smoker alcohol intake: never current occupational status: other Travel in the last 8 weeks: Inside the [place] household members: spouse and children housing: house current occupation: [employer] current occupational exposures/hazards: No ROS Obtained: Yes Systems reviewed as appropriate & no additional complaints except as documented Constitutional Constitutional: Denies fever(s), Denies headache(s) and Denies weakness ENT Ears, Nose, Mouth, and Throat: Denies headache(s), Denies nasal discharge and Denies sore throat Cardiovascular Cardiovascular: Denies chest pain Respiratory Respiratory: Denies shortness of breath and Adin
[2022-07-27 14:33] LABS: Alanine Aminotransferase 18 U/L (12-78); Albumin Level 4.3 g/dl (3.5-5.0); Albumin/Globulin Ratio 1.4 (1.1-1.8); Alkaline Phosphatase 65 U/L (38-126); Anion Gap 11.5 mEq/L (5-15); Aspartate Amino Transferase 32 U/L (14-36); Bilirubin,Total 0.5 mg/dl (0.2-1.3); Blood Urea Nitrogen 15 mg/dl (7-17); Calcium 9.2 mg/dl (8.4-10.2); Carbon Dioxide 24 mmol/L (22.0-30.0); Chloride 106 mmol/L (98-107); Creatinine Clearance Estimated 140 mL/min (50-200); Estimated Glomerular Filt Rate 92 ml/min (>60); GFR (African American) 111 ML/MIN (>60); Globulin 3.1 g/dL (1.3-3.2); Glucose 138 mg/dl (74-100); Potassium 3.5 mmoL/L (3.5-5.1); Sodium 138 mmol/L (136-145); Total Protein,Serum 7.4 g/dl (6.3-8.2)
[2022-07-27 14:34] LABS: Lipase 117 U/L (23-300)
[2022-07-27 14:42] LABS: Basophils % 0.7 % (0.1-2.0); Eosinophils # 0.8 K/mm3 (0.0-0.4); Eosinophils % 12.6 % (0.1-12.0); Hematocrit 36.8 % (37.0-47.0); Hemoglobin 12.3 g/dL (12.2-16.2); Lymphocytes # 2.4 K/mm3 (0.7-4.5); Lymphocytes % 37.1 % (10-50); Mean Corpuscular HGB Conc 33.4 g/dL (31.8-35.4); Mean Corpuscular Hemoglobin 29.4 pg (27.0-31.2); Mean Corpuscular Volume 88.1 fl (81-99); Mean Platelet Volume 7.5 fl (7.4-10.4); Monocytes # 0.3 K/mm3 (0.1-1.0); Monocytes % 4.4 % (1.7-9.3); Neutrophils # 2.9 K/mm3 (1.8-7.8); Neutrophils % 45.2 % (37.0-80.0); Platelet Count 222 K/mm3 (142-424); Red Blood Count 4.18 M/mm3 (4.20-5.40); Red Cell Distribution Width 13.5 % (11.5-17.5); White Blood Count 6.4 K/mm3 (4.8-10.8)
[2022-07-27 14:53] LABS: Troponin I < 0.01 ng/ml (0.00-0.034)
== END 2022-07-27 17:36 | disposition home or self-care (01) ==
PROVIDERS: Emergency Provider Emergency Medicine; PCP Internal Medicine Adolescent Medicine
DX: R10.13 Epigastric pain (principal)
CPT/HCPCS: 71046; 74177; 80053; 83690; 84484; 85025; 93005; 96374; 96375; 99285; Q9967

== ENCOUNTER → 2022-10-20 13:06 | Outpatient (CLI) | payer OTHER, SELFPAY ==
[2022-10-20 14:46] LABS: Alanine Aminotransferase 17 U/L (12-78); Albumin Level 4.1 g/dl (3.5-5.0); Albumin/Globulin Ratio 1.4 (1.1-1.8); Alkaline Phosphatase 70 U/L (38-126); Anion Gap 11.7 mEq/L (5-15); Aspartate Amino Transferase 26 U/L (14-36); Bilirubin,Total 0.6 mg/dl (0.2-1.3); Blood Urea Nitrogen 8 mg/dl (7-17); Calcium 8.9 mg/dl (8.4-10.2); Carbon Dioxide 25 mmol/L (22.0-30.0); Chloride 104 mmol/L (98-107); Estimated Glomerular Filt Rate 110 ml/min (>60); GFR (African American) 133 ML/MIN (>60); Globulin 2.9 g/dL (1.3-3.2); Glucose 93 mg/dl (74-100); Magnesium 1.9 mg/dl (1.6-2.3); Potassium 3.7 mmoL/L (3.5-5.1); Sodium 137 mmol/L (136-145)
[2022-10-20 15:00] LABS: Free Thyroxine Index 2.6 ug/dL (5.93-13.13); T4 (Thyroxine) 8.6 ug/dl (5.53-11.0); Triiodothryronine (T3) Uptake 30 % (23.5-40.5)
[2022-10-20 15:14] LABS: Thyroid Stimulating Hormone 1.89 uIU/mL (0.465-4.68)
== END ==
PROVIDERS: PCP Nurse Practitioner Family; Visit Provider Physician Assistant
DX: R00.2 Palpitations (principal)
CPT/HCPCS: 36415; 80053; 83735; 84436; 84443; 84479

== ENCOUNTER → 2022-11-17 08:35 | Outpatient (CLI) | payer OTHER, SELFPAY ==
[2022-11-17 09:34] LABS: Basophils % 0.4 % (0.1-2.0); Eosinophils # 0.2 K/mm3 (0.0-0.4); Hematocrit 32.8 % (37.0-47.0); Hemoglobin 10.7 g/dL (12.2-16.2); Lymphocytes # 1.8 K/mm3 (0.7-4.5); Lymphocytes % 39.8 % (10-50); Mean Corpuscular HGB Conc 32.6 g/dL (31.8-35.4); Mean Corpuscular Hemoglobin 27.2 pg (27.0-31.2); Mean Corpuscular Volume 83.3 fl (81-99); Mean Platelet Volume 7.8 fl (7.4-10.4); Monocytes # 0.3 K/mm3 (0.1-1.0); Monocytes % 5.9 % (1.7-9.3); Neutrophils # 2.3 K/mm3 (1.8-7.8); Platelet Count 193 K/mm3 (142-424); Red Blood Count 3.94 M/mm3 (4.20-5.40); Red Cell Distribution Width 14.2 % (11.5-17.5); White Blood Count 4.7 K/mm3 (4.8-10.8)
[2022-11-17 09:56] LABS: Chloride 102 mmol/L (98-107)
[2022-11-17 09:57] LABS: Potassium 4.1 mmoL/L (3.5-5.1); Sodium 137 mmol/L (136-145)
[2022-11-17 09:59] LABS: Alanine Aminotransferase 21 U/L (12-78); Alkaline Phosphatase 66 U/L (38-126); Anion Gap 11.1 mEq/L (5-15); Aspartate Amino Transferase 34 U/L (14-36); Bilirubin,Total 0.5 mg/dl (0.2-1.3); Blood Urea Nitrogen 14 mg/dl (7-17); Carbon Dioxide 28 mmol/L (22.0-30.0); Cholesterol 179 mg/dl (140-200); Estimated Glomerular Filt Rate 92 ml/min (>60); GFR (African American) 111 ML/MIN (>60); Triglycerides 53 mg/dl (30-150); VLDL Cholesterol 11 mg/dL (0-40)
[2022-11-17 10:00] LABS: Albumin/Globulin Ratio 1.4 (1.1-1.8); Calcium 9.3 mg/dl (8.4-10.2); Chol/HDL Ratio 2.8 (1-3.5); Globulin 2.9 g/dL (1.3-3.2); Glucose 80 mg/dl (74-100); HDL Cholesterol 63 mg/dl (40-60); Total Protein,Serum 6.9 g/dl (6.3-8.2)
[2022-11-17 10:11] LABS: Direct LDL Cholesterol 86.56 mg/dL (100-129)
[2022-11-17 10:30] LABS: Thyroid Stimulating Hormone 1.81 uIU/mL (0.465-4.68)
[2022-11-17 10:43] LABS: Hemoglobin A1C 5.1 % (4.0-6.0)
== END ==
PROVIDERS: PCP Nurse Practitioner Family; Visit Provider Nurse Practitioner Family
DX: Z00.00 Encounter for general adult medical examination without abnormal findings (principal); E03.9 Hypothyroidism, unspecified; Z79.899 Other long term (current) drug therapy
CPT/HCPCS: 36415; 80053; 80061; 83036; 84443; 85025

== ENCOUNTER → 2022-12-15 10:49 | Outpatient (CLI) | payer OTHER, SELFPAY | PROVIDERS: PCP Nurse Practitioner Family; Visit Provider Nurse Practitioner Family | DX: R55 Syncope and collapse (principal); R00.1 Bradycardia, unspecified | CPT/HCPCS: 93225; 93226 ==

== ENCOUNTER → 2022-12-29 08:34 | Outpatient (CLI) | payer OTHER, SELFPAY | PROVIDERS: PCP Nurse Practitioner Family; Visit Provider Nurse Practitioner Family | DX: R55 Syncope and collapse (principal); R01.1 Cardiac murmur, unspecified; R00.1 Bradycardia, unspecified | CPT/HCPCS: 93306 ==

== ENCOUNTER 2023-09-06 15:36 | Outpatient (CLI) | payer OTHER, SELFPAY ==
--- NOTE | 2023-09-06 15:41 | MM_ITS ---
PROCEDURE INFORMATION: Exam: MG Bilateral Diagnostic Breast Tomosynthesis Exam date and time: 09/06/2023 3:41 PM Age: 43 years old Clinical indication: Right breast palpable lump TECHNIQUE: Imaging protocol: Bilateral Diagnostic tomosynthesis and 2D mammography including computer-aided detection (CAD) when performed. Unilateral or bilateral exam. COMPARISON: MG MM DIG MAMM BI DX W/CAD 02/28/2022 2:41 PM FINDINGS: Breast composition: MAMMOGRAPHY: The breast tissue is composed of scattered areas of fibroglandular density. A skin marker was placed over an area of palpable concern in the right 12 o'clock axis. There is no stellate mass, architectural distortion or suspicious microcalcifications to suggest malignancy. No skin thickening or axillary adenopathy. IMPRESSION: Patient to return for targeted right breast ultrasound for full evaluation of the patient's complaint of a palpable abnormality ASSESSMENT: BI-RADS Category 0: Incomplete- Need Additional Imaging Evaluation and/or Prior Mammograms for Comparison.
== END 2023-09-06 23:59 ==
LOC: RAD 15:36
PROVIDERS: PCP Nurse Practitioner Family; Visit Provider Nurse Practitioner Family
DX: Z12.31 Encounter for screening mammogram for malignant neoplasm of breast (principal)
CPT/HCPCS: 77062; 77066; G0279

== ENCOUNTER 2023-09-19 12:53 | Outpatient (CLI) | payer OTHER, SELFPAY ==
--- NOTE | 2023-09-19 12:56 | US_ITS ---
PROCEDURE INFORMATION: Exam: US Right Breast, Complete Exam date and time: 09/19/2023 1:09 PM Age: 43 years old Clinical indication: Right breast palpable lump TECHNIQUE: Imaging protocol: Complete ultrasound of all four quadrants of the right breast and the retroareolar regions, including ultrasound of the axilla when performed. COMPARISON: US BREAST RT COMPLETE 02/28/2022 3:16 PM FINDINGS: ULTRASOUND: Breast ultrasound findings: Right 4 quadrant and retroareolar as well as right axilla ultrasound was performed Mid region of palpable concern, right 12 o'clock 10 cm from the nipple, there is a near anechoic mostly circumscribed subcutaneous 0.4 x 0.5 x 0.4 cm mass with subtle posterior acoustic shadowing. On 07/05/2018, labeled 11 o'clock outer there is a subcutaneous 0.7 x 0.6 x 0.6 cm hypoechoic mass with similar shadowing features. On 02/28/2022, labeled 11 o'clock 11 cm from the nipple there is a subcutaneous 0.4 x 0.4 x 0.4 cm mass with similar features as the current palpable lump. I suspect this subcutaneous 0.5 cm palpable lump to a been present on examinations dating back to 2018. This demonstrates features highly suggestive of fat necrosis Otherwise, normal glandular structures are present throughout the right breast No suspicious solid or cystic mass is present. No benign-appearing solid or cystic mass is present. No architectural distortion or shadowing is present. No axillary adenopathy is present. IMPRESSION: In the region of palpable concern, there is a superficial anechoic 0.5 cm mass which cannot be characterized as a cyst due to mild posterior acoustic shadowing. As described above in detail, correlating with 03/09 and 07/06 ultrasound, this may have been present dating back at least 5 years. If clinically warranted, sampling could be performed at this time, however given imaging characteristics and perceived stability, short-term follow-up targeted ultrasound in 6 months is recommended . If symptoms were to progress, sampling should be performed ASSESSMENT: BI-RADS category 3: Probably benign
== END 2023-09-19 23:59 ==
LOC: RAD 12:53
PROVIDERS: PCP Nurse Practitioner Family; Visit Provider Nurse Practitioner Family
DX: R92.8 Other abnormal and inconclusive findings on diagnostic imaging of breast (principal); N63.10 Unspecified lump in the right breast, unspecified quadrant
CPT/HCPCS: 76641

== ENCOUNTER 2023-10-11 08:53 | Outpatient (CLI) | payer OTHER, SELFPAY ==
--- NOTE | 2023-10-11 08:53 | US_ITS ---
FINAL REPORT CLINICAL HISTORY: [facility] 1200-- [place]ammat[place]-- dr auguste FINDINGS: ULTRASOUND-GUIDED LEFT BREAST CORE BIOPSY TECHNIQUE: Limited images were obtained to localize region of interest. The left was prepped in a routine sterile fashion and locally anesthetized with 1% lidocaine. Standard written informed consent was obtained. An 11-gauge vacuum assisted hand-held device was utilized. Hypoechoic lesion was identified at 12:00 measuring 4 mm targeted for biopsy. The needle was positioned posterior to the lesion. Multiple vacuum assisted core samples were obtained. The lesion was noted to be significantly smaller following biopsy. A biopsy marker clip was deployed in satisfactory position. Postbiopsy mammogram showed postbiopsy changes with clip in satisfactory position. Procedure was well tolerated . CONCLUSION: 1. Technically successful ultrasound guided core vacuum assisted biopsy of left breast lesion as above. 2. Biopsy marker clip deployed Authenticated and [facility]
--- NOTE | 2023-10-11 08:56 | MM_ITS ---
FINAL REPORT CLINICAL HISTORY: .s/p bx clip placement FINDINGS: MAMMOGRAM RIGHT TECHNIQUE: Standard digital 2-D views COMPARISON: 09/06/2023 DENSITY: There are scattered areas of fibroglandular density FINDINGS: Post biopsy marker clip is noted to be in satisfactory position. Biopsy marker clip is noted at 11-12:00. No associated lesion is seen. Postbiopsy changes are noted. IMPRESSION: Biopsy marker clip in good position RECOMMENDATION: Pending histopathology evaluation Authenticated and [facility]
== END 2023-10-11 23:59 | disposition home or self-care (01) ==
LOC: RAD 08:53
PROVIDERS: PCP Nurse Practitioner Family; Visit Provider Surgery
DX: N64.1 Fat necrosis of breast (principal); N63.10 Unspecified lump in the right breast, unspecified quadrant
CPT/HCPCS: 19083; 77065; C2618

== ENCOUNTER 2023-10-23 15:20 | Outpatient (CLI) | payer OTHER, SELFPAY ==
[2023-10-23 15:54] LABS: Basophils % 0.8 % (0.1-2.0); Eosinophils # 0.2 K/mm3 (0.0-0.4); Eosinophils % 4.3 % (0.1-12.0); Hematocrit 31.1 % (37.0-47.0); Hemoglobin 9.6 g/dL (12.2-16.2); Lymphocytes # 1.7 K/mm3 (0.7-4.5); Lymphocytes % 32.5 % (10-50); Mean Corpuscular HGB Conc 30.8 g/dL (31.8-35.4); Mean Corpuscular Hemoglobin 23.2 pg (27.0-31.2); Mean Corpuscular Volume 75.5 fl (81-99); Mean Platelet Volume 8.3 fl (7.4-10.4); Monocytes # 0.3 K/mm3 (0.1-1.0); Monocytes % 6.3 % (1.7-9.3); Neutrophils # 2.9 K/mm3 (1.8-7.8); Platelet Count 239 K/mm3 (142-424); Red Blood Count 4.11 M/mm3 (4.20-5.40); Red Cell Distribution Width 16.1 % (11.5-17.5); White Blood Count 5.1 K/mm3 (4.8-10.8)
[2023-10-23 17:21] LABS: Chloride 105 mmol/L (98-107); Potassium 4.6 mmoL/L (3.5-5.1); Sodium 139 mmol/L (136-145)
[2023-10-23 17:23] LABS: Alanine Aminotransferase 12 U/L (12-78); Aspartate Amino Transferase 26 U/L (14-36); Blood Urea Nitrogen 19 mg/dl (7-17); Estimated Glomerular Filt Rate 109 ml/min (>60); GFR (African American) 132 ML/MIN (>60)
[2023-10-23 17:24] LABS: Albumin Level 4.2 g/dl (3.5-5.0); Albumin/Globulin Ratio 1.4 (1.1-1.8); Alkaline Phosphatase 66 U/L (38-126); Anion Gap 13.6 mEq/L (5-15); Bilirubin,Total 0.4 mg/dl (0.2-1.3); Calcium 9.8 mg/dl (8.4-10.2); Carbon Dioxide 25 mmol/L (22.0-30.0); Glucose 91 mg/dl (74-100); Iron 31 ug/dL (37-170); Total Protein,Serum 7.2 g/dl (6.3-8.2)
[2023-10-23 17:33] LABS: Total Iron Binding Capacity 416 ug/dL (265-497)
[2023-10-23 17:55] LABS: Thyroid Stimulating Hormone 2.36 uIU/mL (0.465-4.68)
[2023-10-23 19:11] LABS: Vitamin B12 297 pg/mL (239-931)
[2023-10-25 14:35] LABS: Miscellaneous Test SCANNED IMAGE
== END 2023-10-23 23:59 | disposition home or self-care (01) ==
LOC: LAB 15:20
PROVIDERS: PCP Nurse Practitioner Family; Visit Provider Nurse Practitioner Family
DX: N76.6 Ulceration of vulva (principal); D50.9 Iron deficiency anemia, unspecified; R53.83 Other fatigue; E03.9 Hypothyroidism, unspecified; E53.8 Deficiency of other specified B group vitamins; Z68.30 Body mass index [BMI] 30.0-30.9, adult
CPT/HCPCS: 36415; 80053; 82607; 83540; 83550; 84443; 85025

== ENCOUNTER 2024-01-21 11:51 | Outpatient (CLI) | payer OTHER, SELFPAY ==
[2024-01-21 12:32] LABS: Basophils % 0.8 % (0.1-2.0); Eosinophils # 0.1 K/mm3 (0.0-0.4); Eosinophils % 2.7 % (0.1-12.0); Hematocrit 32.3 % (37.0-47.0); Hemoglobin 9.6 g/dL (12.2-16.2); Lymphocytes # 1.8 K/mm3 (0.7-4.5); Lymphocytes % 40.3 % (10-50); Mean Corpuscular HGB Conc 29.6 g/dL (31.8-35.4); Mean Corpuscular Hemoglobin 22.3 pg (27.0-31.2); Mean Corpuscular Volume 75.4 fl (81-99); Mean Platelet Volume 8.8 fl (7.4-10.4); Monocytes # 0.2 K/mm3 (0.1-1.0); Monocytes % 4.3 % (1.7-9.3); Neutrophils # 2.3 K/mm3 (1.8-7.8); Neutrophils % 51.9 % (37.0-80.0); Platelet Count 297 K/mm3 (142-424); Red Blood Count 4.28 M/mm3 (4.20-5.40); Red Cell Distribution Width 17.4 % (11.5-17.5); White Blood Count 4.5 K/mm3 (4.8-10.8)
[2024-01-21 12:39] LABS: Albumin Level 4.6 g/dl (3.5-5.0); Chloride 108 mmol/L (98-107)
[2024-01-21 12:40] LABS: Potassium 3.6 mmoL/L (3.5-5.1); Sodium 141 mmol/L (136-145)
[2024-01-21 12:42] LABS: Alanine Aminotransferase 17 U/L (12-78); Albumin/Globulin Ratio 1.3 (1.1-1.8); Anion Gap 10.6 mEq/L (5-15); Aspartate Amino Transferase 33 U/L (14-36); Blood Urea Nitrogen 10 mg/dl (7-17); Carbon Dioxide 26 mmol/L (22.0-30.0); Estimated Glomerular Filt Rate 91 ml/min (>60); GFR (African American) 111 ML/MIN (>60); Globulin 3.5 g/dL (1.3-3.2); Total Protein,Serum 8.1 g/dl (6.3-8.2)
[2024-01-21 12:43] LABS: Alkaline Phosphatase 67 U/L (38-126); Bilirubin,Total 0.5 mg/dl (0.2-1.3); Calcium 9.4 mg/dl (8.4-10.2); Glucose 87 mg/dl (74-100); Iron 32 ug/dL (37-170)
[2024-01-21 14:38] LABS: Total Iron Binding Capacity 443 ug/dL (265-497)
[2024-01-21 14:48] LABS: Thyroid Stimulating Hormone 1.99 uIU/mL (0.465-4.68)
[2024-01-21 15:07] LABS: Vitamin B12 238 pg/mL (239-931)
== END 2024-01-21 23:59 | disposition home or self-care (01) ==
LOC: RT 11:52
PROVIDERS: PCP Nurse Practitioner Family; Visit Provider Nurse Practitioner Family
DX: R42 Dizziness and giddiness (principal); D50.8 Other iron deficiency anemias; E03.9 Hypothyroidism, unspecified; E53.8 Deficiency of other specified B group vitamins
CPT/HCPCS: 36415; 80050; 80053; 82607; 83540; 83550; 84443; 85025; 93225; 93226

== ENCOUNTER 2024-01-31 15:52 | Outpatient (CLI) | payer OTHER, SELFPAY ==
[2024-01-31 16:05] VITALS: BP 134/80; PULSE 64; RESP 18; O2SAT 99
[2024-01-31] MEDS: IRON SUCROSE COMPLEX 200 MG in 0.9 % SODIUM CHLORIDE 100 ML 220 MG IV (16:05)
[2024-01-31] MEDS: SODIUM CHLORIDE 0.9% 50ML BAG 50 ML IV (16:43)
[2024-01-31] MEDS: SODIUM CHLORIDE 0.9% 10ML FLUSH SYRINGE 10 ML IV (16:43)
[2024-01-31 16:46] VITALS: BP 113/75; PULSE 71; RESP 18; O2SAT 100
== END 2024-01-31 16:46 | disposition home or self-care (01) ==
LOC: INF 15:54
PROVIDERS: PCP Nurse Practitioner Family; Visit Provider Internal Medicine Medical Oncology
DX: D50.9 Iron deficiency anemia, unspecified (principal)
CPT/HCPCS: 96365; J1756

== ENCOUNTER 2024-02-01 13:33 | Outpatient (CLI) | payer OTHER, SELFPAY ==
--- NOTE | 2024-02-01 13:36 | CA_ITS ---
APPROVED REPORT EXAM: Comprehensive 2D, Doppler, and color-flow Echocardiogram Remediation Technician: Ronna Lee CRT Ht: 5 ft 3 in Wt: 169lbs BSA: 1.80 BP: 126/82 mmHg Indications: Murmur, h/o gastric bypass, iron def- anemia Echo Enhancing Agent Indication: Rule out Shunt Agent(s) / Amount(s) Used: Agitated Saline 5 cc Comments: B/S appears to be negative 2D Dimensions Left Atrium 3.41 cm LVEF (Feliciano's) 56.50 % LVOT 1.93 cm (M/F) 1.5-2.5 LV Volume 100.80 mL LA Volume 79.60 mL LA Volume Index 44.20 mL/m2 (M/F) 16-34 EF AP4 59.50 % EF AP2 55.2 % EF BP 56.5 % GL Strain -14.6 % M-Mode Dimensions RVDd 1.89 cm (0.9-2.6) LVDd 4.02 cm (3.5-5.7) Ao Diam 4.06 cm (2.0-3.7) LVDs 2.26 cm (3.5-5.7) IVSd 1.47 cm (0.6-1.1) PWd 0.62 cm (0.6-1.1) EF (Teich) 75.60% FS 43.80% EDV (Teich) 70.80 mL TAPSE 3.31 (<1.7) ESV (Teich) 17.30 mL LV Diastology E Decel Time 150 (160-240 msec) E/A Ratio 1.45 MED E' 11.1 (>= 7 cm/sec) MED A' 11.80 cm/s E'/MED E' Ratio 9.29 (<= 14) LAT E' 11.7 (>= 10 cm/sec) LAT A' 13.00 cm/s E/LAT E' Ratio 8.81 (<= 14) Aortic Valve AoV Peak Mario. 166.0 (50-130 cm/s) AO Peak GR. 11.20 mmHg Mitral Valve MV E Max Mario. 103.0 (40-130 cm/s) MV A Velocity 71.0 (40-130 cm/s) E/A Ratio 1.45 MV Decel. Time 150 (160-240 ms) Tricuspid Valve TR P. Velocity 128.00 cm/s RAP Estimate 10.00 mmHg RVSP 16.50 mmHg Left Ventricle The left ventricle is normal size. The left ventricular systolic function is normal. The left ventricular ejection fraction is within the normal range. There is normal left ventricular wall thickness. There is normal LV segmental wall motion. The left ventricular diastolic function is normal. LVEF is 55%. Right Ventricle The right ventricle is normal size. The right ventricular systolic function is normal. Atria Left atrium is mildly dilated. Right atrium is mildly dilated. There is no color Doppler evidence of interatrial shunt. Agitated saline administration demonstrates no evidence of bubble migration from the RA to the LA. Aortic Valve The aortic valve opens well. There is no aortic valvular stenosis. No aortic regurgitation is present. Mitral Valve The mitral valve is normal in structure. No evidence of mitral valve stenosis. Trace mitral regurgitation. Tricuspid Valve The tricuspid valve leaflets are thin and pliable. Trace tricuspid regurgitation. There is insufficient TR jet to estimate RVSP. Pulmonic Valve The pulmonary valve is normal in structure. Trace pulmonic regurgitation. Great Vessels The aortic root is normal in size. The ascending aorta is normal in size. IVC is normal in size and collapses >50% with inspiration. Pericardium There is no pericardial effusion. Other Information Study Quality: Fair Conclusion Normal biventricular systolic function. Mild biatrial dilation. No significant valvular stenosis or regurgitation. No color Doppler evidence of interatrial shunt. Agitated saline administration demonstrates no evidence of bubble migration from the RA to the LA. Electronically signed by : Beronica Phelps MD 02/04/2024 06:38:44
== END 2024-02-01 23:59 | disposition home or self-care (01) ==
LOC: RT 13:34
PROVIDERS: PCP Nurse Practitioner Family; Visit Provider Nurse Practitioner Family
DX: R42 Dizziness and giddiness (principal)
CPT/HCPCS: 93306

== ENCOUNTER 2024-02-07 15:52 | Outpatient (CLI) | payer OTHER, SELFPAY ==
[2024-02-07 16:08] VITALS: BP 132/72; PULSE 64; RESP 16; TEMP 36.9; O2SAT 98
[2024-02-07] MEDS: SODIUM CHLORIDE 0.9% 10ML FLUSH SYRINGE 10 ML IV (16:09)
[2024-02-07] MEDS: SODIUM CHLORIDE 0.9% 50ML BAG 50 ML IV (16:09)
[2024-02-07] MEDS: IRON SUCROSE COMPLEX 200 MG in 0.9 % SODIUM CHLORIDE 100 ML 220 MG IV (16:09)
[2024-02-07 16:45] VITALS: BP 127/66; PULSE 66; RESP 18; TEMP 36.9; O2SAT 98
== END 2024-02-07 16:48 | disposition home or self-care (01) ==
PROVIDERS: PCP Nurse Practitioner Family; Visit Provider Internal Medicine Medical Oncology
DX: D50.9 Iron deficiency anemia, unspecified (principal)
CPT/HCPCS: 96365; J1756

== ENCOUNTER 2024-02-15 07:28 | Outpatient (CLI) | payer OTHER, SELFPAY ==
--- NOTE | 2024-02-15 07:30 | MR_ITS ---
FINAL REPORT CLINICAL HISTORY: DAILY HEADACHES FINDINGS: Multiplanar MR imaging of the brain was performed without and with contrast. There is no evidence of intracranial hemorrhage or mass. No abnormal extra-axial fluid collection is seen. The ventricular size is within normal limits. There is no evidence of shift of the midline structures. The posterior fossa and brainstem have an unremarkable appearance. No area of abnormal restricted diffusion is identified. No abnormal contrast enhancement is seen. Normal major vessel vascular flow voids are noted. IMPRESSION: No acute intracranial abnormality identified. Reviewed, Interpreted and Dictated by Steffen Mooney MD Transcribed by Dary Marrero Authenticated and [facility]
[2024-02-15] MEDS: GADOTERIDOL INJ 20ML SYRINGE 15 ML IV (08:03)
[2024-02-15] MEDS: SODIUM CHLORIDE 0.9% 10ML SYR (RAD ONLY) 10 ML IV (08:03)
[2024-02-15 16:08] VITALS: BP 116/75; PULSE 73; RESP 18; O2SAT 99
[2024-02-15] MEDS: SODIUM CHLORIDE 0.9% 50ML BAG 50 ML IV (16:15)
[2024-02-15] MEDS: IRON SUCROSE COMPLEX 200 MG in 0.9 % SODIUM CHLORIDE 100 ML 220 MG IV (16:15)
[2024-02-15] MEDS: SODIUM CHLORIDE 0.9% 10ML FLUSH SYRINGE 10 ML IV (16:37)
[2024-02-15 16:40] VITALS: BP 116/72; PULSE 70
== END 2024-02-15 16:41 | disposition home or self-care (01) ==
LOC: RAD 07:28 → INF 15:59
PROVIDERS: PCP Nurse Practitioner Family; Visit Provider Nurse Practitioner Family
DX: D50.9 Iron deficiency anemia, unspecified (principal)
CPT/HCPCS: 70553; 96365; A9576; J1756

== ENCOUNTER 2024-02-20 15:42 | Outpatient (CLI) | payer OTHER, SELFPAY ==
[2024-02-20] MEDS: IRON SUCROSE COMPLEX 200 MG in 0.9 % SODIUM CHLORIDE 100 ML 220 MG IV (15:53)
[2024-02-20] MEDS: SODIUM CHLORIDE 0.9% 10ML FLUSH SYRINGE 10 ML IV (15:54)
[2024-02-20] MEDS: SODIUM CHLORIDE 0.9% 50ML BAG 50 ML IV (15:54)
[2024-02-20 15:55] VITALS: BP 127/67; PULSE 75; RESP 18; O2SAT 97
[2024-02-20 16:23] VITALS: BP 118/68; PULSE 53
== END 2024-02-20 16:25 | disposition home or self-care (01) ==
LOC: INF 15:43
PROVIDERS: PCP Nurse Practitioner Family; Visit Provider Internal Medicine Medical Oncology
DX: D50.9 Iron deficiency anemia, unspecified (principal)
CPT/HCPCS: 96365; J1756

== ENCOUNTER 2024-02-22 06:33 | Day surgery (SDC) | payer OTHER, SELFPAY ==
[2024-02-21 09:46] VITALS: BMI 29.7
[2024-02-22] MEDS: LACTATED RINGERS 1000ML 1,000 ML 25 ML IV (06:53)
[2024-02-22 06:55] VITALS: BP 133/90; PULSE 79; RESP 18; TEMP 36.6; O2SAT 98
[2024-02-22 07:23] VITALS: O2SAT 100
--- NOTE | 2024-02-22 07:25 | P.PNANES_ITS ---
[facility] Disclaimer: The information contained in this section may have been updated after the patient was seen, as this information can be updated by other users. Medical History Anemia Surgical History History of History of gastric surgery Family History Other Alcoholism Anemia Asthma Bleeding disorder Cancer Coronary artery disease Heart attack Hypertension Stroke Substance abuse Social History Smoking Status: Never smoker alcohol intake: never substance use type: denies use current occupational status: employed and other Travel in the last 8 weeks: None household members: spouse and children housing: house current occupation: [employer] current occupational exposures/hazards: No [facility] Anesthesia Checklist Patient Identification Patient Identification: Arm Band Structural Data Admitted From: Home Planned Operative Procedure/s: Colonoscopy Consent for Planned Operative Procedure(s) Verified: Yes Verified Documents: Surgical Consent and History and Physical NPO Status Verified Time NPO: 00:00 Additional verifications Anesthesia Reactions: No Airway Assessment Mallampati Score:: Class II C-Spine Mobility Assessed: Yes TMJ Mobility Assessed: Yes Dentition: Good Dentition Neurological Assessment Level of Consciousness: Awake, Alert and Appropriate Anesthesia Plan Anesthesia Risk discussed: Yes Anesthesia Plan: Verified ASA Class: II Anesthesia Type: MAC
[2024-02-22 08:02] VITALS: BP 81/50; PULSE 77; RESP 14; TEMP 36.3; O2SAT 95
--- NOTE | 2024-02-22 08:02 | HMH.SCOPE ---
Procedure: Date: 02/22/24 Patient Date of :: 1980 Procedure Performed:: Total colonoscopy to terminal ileum with polypectomy and biopsy . Indications:: Patient is a 43-year-old female. She is referred for initial screening colonoscopy. Of note, she has had a previous sleeve gastrectomy. She has iron deficiency anemia and has seen hematology. She is undergoing iron infusion as she has not tolerated oral iron. . Performing Provider:: Kyle Cruz MD Referring Provider:: Liyah Alejo . Sedation:: MAC sedation . Procedure:: Patient history was obtained and appropriate physical examination was performed. Patient's medications and allergies were reviewed. Informed consent was obtained after explaining the benefits, alternatives, and risks of the procedure including, but not limited to, bleeding, perforation, missed lesions, and adverse reaction to anesthesia medications. Patient was transported to endoscopy procedure room. Patient was connected to monitoring devices. Throughout the procedure the patient's blood pressure, pulse, and oxygen saturations were monitored continuously. Patient identification and planned procedure were verified by the staff. Patient was positioned in lateral decubitus position. Digital anorectal exam was performed. Variable stiffness Olympus colonoscope was inserted and advanced under direct visualization to the cecum. Adequacy of the colonic preparation was noted. The colonoscope was advanced a short distance into the terminal ileum. The colonoscope was then slowly withdrawn while carefully examining the color, texture, anatomy, and integrity of the mucosoa circumferentially. Within the rectum retroflexion was performed. Colonoscope was then withdrawn. Impression: Colonoscope was advanced to the cecum. There was some scattered particulate liquid opaque stool which was able to be cleared. With advancement of the colonoscope there was noted to be multiple likely lymphoid aggregate. There was a more prominent appearing possible lymphoid aggregate which was removed with biopsy forceps and sent as left colon polyp . The colonoscope was then advanced to the cecum. There was some prominent mucosa in the periappendiceal location, likely inconsequential, biopsied with cold biopsy forceps. The colonoscope was advanced into the terminal ileum. This appeared overall grossly normal but there is some minor denuded mucosa and given her findings of iron deficiency anemia biopsy was obtained. As the colonoscope was withdrawn and careful surveillance was carried out. There was diffuse findings consistent with lymphoid aggregate. In the descending colon there was a tiny minuscule somewhat pedunculated approximately 1 or 2 mm polyp removed with biopsy forceps. There were a couple of left-sided diverticuli. At the rectosigmoid region there were several hyperplastic appearing polyps removed with biopsy forceps. . Findings:: Lymphoid aggregate Possible left colon polyp Prominent periappendiceal mucosa, biopsied Descending colon polyp Hyperplastic appearing rectosigmoid polyps . Recommendations:: Repeat colonoscopy pending pathology Complications:: None immediately apparent Estimated blood obtained (mL): 1 Colonoscopy Component Colonoscopy Component Was a colonoscopy performed during today's procedure?: Yes Recommended follow up colonoscopy of at least 10 years?: No If no, follow up colonoscopy recommended in ___ years?: See above Reason for not recommending >/= 10 yr follow-up interval?: See above
[2024-02-22 08:17] VITALS: BP 89/48; PULSE 67; RESP 16; O2SAT 100
[2024-02-22 08:19] LABS: Urine Pregnancy, HCG Qual. Negative (Negative)
[2024-02-22 08:32] VITALS: BP 109/73; PULSE 71; RESP 18; O2SAT 100
== END 2024-02-22 08:32 | disposition home or self-care (01) ==
PROVIDERS: PCP Nurse Practitioner Family; Visit Provider Surgery
PROC: 0DJD8ZZ Inspection of Lower Intestinal Tract, Via Natural or Artificial Opening Endoscopic (ICD-10-PCS; CPT 45378; principal; 2024-02-22 07:30)
DX: Z12.11 Encounter for screening for malignant neoplasm of colon (principal); D50.9 Iron deficiency anemia, unspecified; D12.7 Benign neoplasm of rectosigmoid junction; D12.4 Benign neoplasm of descending colon; Z90.3 Acquired absence of stomach [part of]
CPT/HCPCS: 45380; 81025; J2704; J7120

== ENCOUNTER 2024-02-27 15:49 | Outpatient (CLI) | payer OTHER, SELFPAY ==
[2024-02-27] MEDS: IRON SUCROSE COMPLEX 200 MG in 0.9 % SODIUM CHLORIDE 100 ML 220 MG IV (16:04)
[2024-02-27] MEDS: SODIUM CHLORIDE 0.9% 50ML BAG 50 ML IV (16:04)
[2024-02-27 16:05] VITALS: BP 124/68; PULSE 72; RESP 16; O2SAT 100
[2024-02-27 16:40] VITALS: BP 113/75; PULSE 58; RESP 17
== END 2024-02-27 16:52 | disposition home or self-care (01) ==
LOC: INF 15:50
PROVIDERS: PCP Nurse Practitioner Family; Visit Provider Internal Medicine Medical Oncology
DX: D50.9 Iron deficiency anemia, unspecified (principal)
CPT/HCPCS: 96365; J1756

== ENCOUNTER 2024-03-29 08:04 | Outpatient (CLI) | payer OTHER, SELFPAY ==
[2024-03-29 08:30] LABS: Basophils # 0.1 K/mm3 (0-0.2); Basophils % 0.9 % (0.1-2.0); Eosinophils # 0.2 K/mm3 (0.0-0.4); Eosinophils % 3.3 % (0.1-12.0); Hematocrit 38.8 % (37.0-47.0); Hemoglobin 12.7 g/dL (12.2-16.2); Lymphocytes # 1.6 K/mm3 (0.7-4.5); Lymphocytes % 29.6 % (10-50); Mean Corpuscular HGB Conc 32.8 g/dL (31.8-35.4); Mean Corpuscular Hemoglobin 27.7 pg (27.0-31.2); Mean Corpuscular Volume 84.4 fl (81-99); Mean Platelet Volume 7.1 fl (7.4-10.4); Monocytes # 0.4 K/mm3 (0.1-1.0); Monocytes % 6.4 % (1.7-9.3); Neutrophils # 3.3 K/mm3 (1.8-7.8); Neutrophils % 59.9 % (37.0-80.0); Platelet Count 203 K/mm3 (142-424); Red Cell Distribution Width 21.1 % (11.5-17.5); White Blood Count 5.6 K/mm3 (4.8-10.8)
[2024-03-29 09:12] LABS: Iron 73 ug/dL (37-170)
[2024-03-29 09:22] LABS: Total Iron Binding Capacity 342 ug/dL (265-497)
[2024-03-29 09:48] LABS: Ferritin 17.3 ng/ml (6.24-137)
== END 2024-03-29 23:59 | disposition home or self-care (01) ==
LOC: LAB 08:05
PROVIDERS: PCP Internal Medicine Medical Oncology; Visit Provider Internal Medicine Medical Oncology
DX: D50.8 Other iron deficiency anemias (principal); K95.89 Other complications of other bariatric procedure
CPT/HCPCS: 36415; 82728; 83540; 83550; 85025

== ENCOUNTER 2024-08-09 08:24 | Outpatient (CLI) | payer OTHER, SELFPAY ==
[2024-08-09 08:37] LABS: Basophils % 0.4 % (0.1-2.0); Eosinophils # 0.2 K/mm3 (0.0-0.4); Eosinophils % 4.2 % (0.1-12.0); Hematocrit 37.5 % (37.0-47.0); Hemoglobin 12.2 g/dL (12.2-16.2); Lymphocytes # 1.9 K/mm3 (0.7-4.5); Lymphocytes % 37.4 % (10-50); Mean Corpuscular HGB Conc 32.5 g/dL (31.8-35.4); Mean Corpuscular Hemoglobin 28.8 pg (27.0-31.2); Mean Corpuscular Volume 88.4 fl (81-99); Mean Platelet Volume 9.4 fl (7.4-10.4); Monocytes # 0.4 K/mm3 (0.1-1.0); Monocytes % 7.3 % (1.7-9.3); Neutrophils # 2.6 K/mm3 (1.8-7.8); Neutrophils % 50.5 % (37.0-80.0); Platelet Count 217 K/mm3 (142-424); Red Blood Count 4.24 M/mm3 (4.20-5.40); Red Cell Distribution Width 11.7 % (11.5-17.5); White Blood Count 5.1 K/mm3 (4.8-10.8)
[2024-08-09 09:25] LABS: Iron 62 ug/dL (37-170)
[2024-08-09 09:35] LABS: Total Iron Binding Capacity 406 ug/dL (265-497)
[2024-08-09 10:03] LABS: Ferritin 5.42 ng/ml (6.24-137)
== END 2024-08-09 23:59 | disposition home or self-care (01) ==
LOC: LAB 08:25
PROVIDERS: PCP Nurse Practitioner Family; Visit Provider Internal Medicine Medical Oncology
DX: D64.9 Anemia, unspecified (principal)
CPT/HCPCS: 36415; 82728; 83540; 83550; 85025

== ENCOUNTER 2024-11-08 09:03 | Outpatient (CLI) | payer OTHER, SELFPAY ==
[2024-11-08 11:12] LABS: Iron 64 ug/dL (37-170)
[2024-11-08 11:26] LABS: Total Iron Binding Capacity 368 ug/dL (265-497)
[2024-11-08 11:48] LABS: Ferritin 5.56 ng/ml (6.24-137)
== END 2024-11-08 23:59 | disposition home or self-care (01) ==
LOC: LAB 09:04
PROVIDERS: PCP Nurse Practitioner Family; Visit Provider Internal Medicine Medical Oncology
DX: K95.89 Other complications of other bariatric procedure (principal); D50.8 Other iron deficiency anemias
CPT/HCPCS: 36415; 82728; 83540; 83550

== ENCOUNTER 2024-11-11 10:07 | Outpatient (CLI) | payer OTHER, SELFPAY ==
[2024-11-11 11:01] LABS: Basophils % 0.5 % (0.1-2.0); Eosinophils # 0.3 Kmm3 (0.0-0.4); Eosinophils % 4.8 % (0.1-12.0); Hematocrit 37.6 % (37.0-47.0); Hemoglobin 11.8 g/dL (12.2-16.2); Immature Granulocytes # 0.01 10^3uL; Immature Granulocytes % 0.2 %; Lymphocytes # 1.8 K/mm3 (0.7-4.5); Lymphocytes % 31.5 % (10-50); Mean Corpuscular HGB Conc 31.4 g/dL (31.8-35.4); Mean Corpuscular Hemoglobin 26.8 pg (27.0-31.2); Mean Corpuscular Volume 85.3 fl (81-99); Mean Platelet Volume 9.6 fl (7.4-10.4); Monocytes # 0.4 K/mm3 (0.1-1.0); Monocytes % 6.2 % (1.7-9.3); Neutrophils # 3.2 K/mm3 (1.8-7.8); Neutrophils % 56.8 % (37.0-80.0); Nucleated Red Blood Cells # 0 10^3/uL; Nucleated Red Blood Cells % 0 %; Platelet Count 242 K/mm3 (142-424); Red Blood Count 4.41 M/mm3 (4.20-5.40); Red Cell Distribution Width 13.4 % (11.5-17.5); Red Cell Distribution Width-SD 41.4 fL; White Blood Count 5.6 K/mm3 (4.8-10.8)
[2024-11-11 12:04] LABS: Vitamin B12 302 pg/mL (239-931)
== END 2024-11-11 23:59 | disposition home or self-care (01) ==
LOC: LAB 10:07
PROVIDERS: PCP Nurse Practitioner Family; Visit Provider Internal Medicine Medical Oncology
DX: D50.8 Other iron deficiency anemias (principal); K95.89 Other complications of other bariatric procedure
CPT/HCPCS: 36415; 82607; 85025

== ENCOUNTER 2024-11-21 13:01 | Outpatient (CLI) | payer OTHER, SELFPAY ==
--- OUTSIDE RECORDS SUMMARY | 2024-02-26 11:30 | XMS_ITS ---
Author Organization [facility] Address [address] [place] [address] Care Team Providers Care Roll Skinner Name Role Phone Messi Mejia Primary Care Provider Perri Alejo [phone] REASON FOR VISIT 3 Week F/U Encounters Encounter Location Date Provider Diagnosis [facility] [address] [place], [place] [address] 02/26/2024 Perri Alejo Plan Of Treatment No Information Progress Notes * Gisel STAHL FDOB:1980 (44 yo F)Acc No.[id number]:02/26/2024 Progress Notes Patient: Gisel YOUNGBLOOD Provider: Sy Alejo APRN :1980 A ge:43 Y S ex:Female Date:02/26/2024 Address:[address] [id number] Pcp:Messi Mejia Subjective: * Chief Complaints: * 1 . 3 Week F/U. * Medical History: Objective: * Vitals: Assessment: Plan: * Treatment: * * Electronic signature of Teresita Alejo APRN on 11/21/2024 at 01:06 PM EDT Sign off status: Pending * Provider: Sy Alejo APRN Date: 0 02/26/2024 Generated for Rafa acosta/Steph/Terellitting on: 0 11/21/2024 01:06 PM EDT
--- OUTSIDE RECORDS SUMMARY | 2024-09-20 17:30 | XMS_ITS ---
Author Organization [facility] D [facility] Address [address] [place] [address] Care Team Providers Care Tooth Cutter Pinion Name Role Phone Messi Mejia Primary Care Provider [phone] Perri Alejo Unavailable [phone] Migration, Provider Unavailable Unavailable Allergies Allergen (clinical drug ingredient) Drug/Non Drug Allergy documented on EMR Reaction Allergy Type Onset Date Status escitalopram Lexapro rash Drug Allergy Acti ve Penicillin hives Drug Allergy Active REASON FOR VISIT [facility] To [facility] Conversion Encounter Medications Medication SIG (Take, [...] Active Encounters Encounter Location Date Provider Diagnosis [facility] [address] [place] [address] 09/20/2024 Provider Migration Muscle pain M79.10 Assessments [...] * Gisel STAHL FDOB:1980 (44 yo F)Acc No.[id number]:09/20/2024 Patient: Gisel YOUNGBLOOD Provider: Sydnie Preston :1980 A ge:44 Y S ex:Female Date:09/20/2024 Address:[address] [place] [address] [id number] Pcp:Messi Mejia Subjective: * [...] Electronic signature of Prov ider Migration on 11/21/2024 at 01:06 PM EDT Sign off status: Pending * Provider: Sydnie cunha Migration Date: 0 09/20/2024 Generated for Rafa acosta/Steph/Gaysmitting on: 0 11/21/2024 01:06 PM EDT
--- OUTSIDE RECORDS SUMMARY | 2024-11-21 13:06 | XMS_ITS | Clinical Summary ---
Author Organization Healthcare Address [address] [place] [address] Care Team Providers Care Inspector Type Name Role Phone Messi Mejia MD Primary Care Provider [phone] Family History Medical History Relation Name Comments Thyroid disease Mother Relation Name Status Comments Mother Social History Tobacco Use Types Packs/Day Years Used Date Smoking Tobacco: Passive Smo ke Exposure - Never Smoker Alcohol Use Standard Drinks/Week Comments Not Currently 0 (1 standard drink = 0.6 oz pure alcohol) Alcoholic Drinks/day: Current non-drinker of alcohol Comments Unknown Sex and Gender Information Value Date Recorded Sex Assigned at Not on file Legal Sex Female 8:39 PM EDT Gender Identity Not on file Sexual Orientation Not on file Last Filed Vital Signs Vital Sign Reading Time Taken Comments Blood Pressure 156/86 12/29/2022 11:52 AM EDT Pulse 77 12/29/2022 11:52 AM EDT Temperature - - Respiratory Rate 78 11/21/2017 1:56 PM EDT Oxygen Saturation - - Inhaled Oxygen Concentration - - Weight 137 kg (303 lb) 11/21/2017 1:56 PM EDT Height 160 cm (5' 3 ) 12/29/2022 11:52 AM EDT Body Mass Index 53.67 11/21/2017 1:56 PM EDT Plan of Treatment Health Maintenance Due Date Last Done Comments [facility]-Depression Screening 1980 [facility]-/Child/Adol SDOH Screenings 1980 [facility]-Varicella Vaccines (1 of 2 - 13+ 2-dose series) 1993 HPV Vaccines (1 - 3-dose series) 1995 [facility]- SDOH Screenings 1998 [facility]-Adult SDOH Screenings 1998 [facility]-Hepatitis B Vaccines (1 of 3 - 19+ 3-dose series) 1999 [facility]-Pap Smear 2001 [facility]-Cervical Cancer Screening 2010 [facility]-HPV/Cotest 2010 [facility]-DTaP,Tdap,and Td Vaccines (2 - Td or Tdap) 08/28/2023 08/27/2013 [id number] Vaccine (3 - 2023- season) 2024 02/04/2021, 01/07/2021 [facility]-Influenza Vaccine (Season Ended) 2025 04/12/2020, 05/31/2019, 04/17/2018, Additional history exists [facility]-Zoster Vaccines (1 of 2) 2030 [facility]-HIB Vaccines Aged Out No longer e ligible based on patient's age to complete this topic [facility]-Hepatitis A Vaccines Aged Out No longer eligible based on patient's age to complete this topic [facility]-IPV Vaccines Aged Out No longer e ligible based on patient's age to complete this topic [facility]-Pneumococcal Vaccine: Pediatrics (0 to 5 Years) and At-Risk Patients (6 to 49 Years) Aged Out No longer eligible based on patient's age to complete this topic [facility]-Rotavirus Vaccines Aged Out No lo nger eligible based on patient's age to complete this topic Insurance AETNA [facility] MEDICAID Care Teams Inspector Type Relationship Specialty Start Date End Date Messi Mejia MD [address] [place] [address] [facility] - General 10/29/20
--- OUTSIDE RECORDS SUMMARY | 2024-11-21 13:06 | XMS_ITS | Patient Health Record ---
Author Organization [facility] Address [address] [place] [address] Care Team Providers Care Able Bodied Seaman Name Role Phone Messi Mejia Primary Care Provider Perri Alejo Unavailable [phone] Mima Biggs Unavailable [phone] Migration, Provider Unavailable Unavailable Allergies Allergen (clinical drug ingredient) Drug/Non Drug Allergy documented on EMR Reaction Allergy Type Onset Date Status escitalopram Lexapro rash Drug Allergy Acti ve Penicillin hives Drug Allergy Active Results Component Value Reference Range Notes H-FETIBC Reviewed date:01/22/2024 02:39:28 PM Interpretation: Performing Lab: Notes/Report: FE 32 37-170 ug/dL DTIBC 443 265-497 ug/dL IRONSAT 7.51207 15-55 % Rapid Covid Antigen Reviewed date:02/06/2024 01:12:28 PM Interpretation:Negative Performing Lab: Notes/Report: Negative H-VITB12 Reviewed date:01/22/2024 02:39:28 PM Interpretation: Performing Lab: Notes/Report: VITB12 238 239-931 pg/mL M-Thyroid Stimulating Hormon e Reviewed date:01/22/2024 02:39:28 PM Interpretation: Performing Lab: Notes/Report: TSH 1.99 0.465-4.68 uIU/mL M-Comprehensive Metabolic Pa yuly Reviewed date:01/22/2024 02:39:28 PM Interpretation: Performing Lab: Notes/Report: NA 141 136-145 mmol/L K 3.6 3.5-5.1 mmoL/L CL 108 98-107 mmol/L CO2 26 22.0-30.0 mmol/L GAP 10.6 5-15 mEq/L BUN 10 7-17 mg/dl CREATT 0.70 0.52-1.04 mg/dl GFRAA 111 >60 ML/MIN EGFR 91 >60 ml/min GLU 87 74-100 mg/dl CA 9.4 8.4-10.2 mg/dl BILIT 0.5 0.2-1.3 mg/dl AST 33 14-36 U/L ALT 17 12-78 U/L TP 8.1 6.3-8.2 g/dl ALB 4.6 3.5-5.0 g/dl GLOB 3.5 1.3-3.2 g/dL AGRATIO 1.3 1.1-1.8 ALP 67 38-126 U/L M-Complete Blood Count Auto Diff Reviewed date:01/22/2024 02:39:28 PM Interpretation: Performing Lab: Notes/Report: WBC 4.5 4.8-10.8 K/mm3 RBC 4.28 4.20-5.40 M/mm3 HGB 9.6 12.2-16.2 g/dL HCT 32.3 37.0-47.0 % MCV 75.4 81-99 fl MCH 22.3 27.0-31.2 pg MCHC 29.6 31.8-35.4 g/dL RDW 17.4 11.5-17.5 % PLT 297 142-424 K/mm3 MPV 8.8 7.4-10.4 fl NE% 51.9 37.0-80.0 % LY% 40.3 10-50 % MO% 4.3 1.7-9.3 % EO% 2.7 0.1-12.0 % BA% 0.8 0.1-2.0 % NE# 2.3 1.8-7.8 K/mm3 LY# 1.8 0.7-4.5 K/mm3 MO# 0.2 0.1-1.0 K/mm3 EO# 0.1 0.0-0.4 K/mm3 BA# 0.0 0-0.2 K/mm3 Echocardiogram - Bubble Stud y Reviewed date:02/05/2024 03:00:39 PM Interpretation: Performing Lab: Notes/Report: Holter Monitor, 48 hour Reviewed date:02/01/2024 03:16:14 PM Interpretation: Performing Lab: Notes/Report: MRI : Head, With and Without Contrast Reviewed date:02/22/2024 02:41:32 PM Interpretation: Performing Lab: Notes/Report: Rapid Strep Reviewed date:02/06/2024 12:34:35 PM Interpretation:Negative Performing Lab: Notes/Report: Negative Medications Medication SIG (Take, Route, Frequency, Duration) Notes Start Date End Date Status B-12 1000 MCG 1 tab(s) orally once a day Active Pataday 0.2 % 1 gtt in each affected eye once a day for 10 day(s) prn Active ZyrTEC Allergy 10 MG 1 tab(s) orally once a day for 30 days prn Active Omeprazole 40 MG 1 cap(s) orally [...] a day for 3 days 05/13/2024 Active Meclizine HCl 25 MG 1 tab(s) orally 3 times a day for 14 days 01/22/2024 Active valACYclovir HCl 1 GM 1 tab(s) orally every 12 hours for 7 days prn 10/23/2023 Active Flonase Allergy Relief 50 MCG/ACT 2 spray(s) intranasally once a day prn for 30 day(s) 05/01/2018 Active Immunizations Vaccine Route Administration Date Status Comme nts Influenza-Fluzone 3+years (NON-MEDICARE) IM Intramuscular 04/12/2015 Administered FLUZONE 6MO - OLDER Unknown 05/31/2019 Administered Adacel (Tdap) Unknown 08/27/2013 Administered Problems Problem Type SNOMED Code ICD Code Onset Dates Problem Status W/U Status Risk Notes Problem 39116524012857 Morbid (severe) obesity due to excess calories (E66.01) Active confirmed Problem 405830646 Other headache syndrome (G44.89) Active confirmed Problem Essential hypertension (75154122) Essential (primary) hypertension (I10) Active confirmed Problem Ataxia (26288209) Ataxia, unspecified (R27.0) Active confirmed Problem Syncope and collapse (357987723) Syncope and collapse (R55) Active confirmed Problem 61054927 Hypothyroid (E03.9) Active confirmed Problem 68258628 Paresthesia (R20.2) Active confirmed Problem 05186948 Anxiety (F41.9) Active confirmed Problem Sore throat (392000263) Sore throat (J02.9) Active confirmed Problem 666913549 GERD without esophagitis (K21.9) Active confirmed Problem 882618953 BMI 31.0-31.9,adult (Z68.31) Active confirmed Problem 39636608 Murmur (R01.1) Active confirmed Problem 007852265 Obesity (BMI 30-39.9) (E66.9) Active confirmed Problem 72228555 Other iron deficiency anemia (D50.8) Active confirmed Problem 960283780 Abnormal mammogram (R92.8) Active confirmed Problem 290119978 Morbid obesity due to excess calories (E66.01) Active confirmed Problem 625795411 Tension headache (G44.209) Active confirmed Problem 964923964 Hypoglycemia (E16.2) Active confirmed Problem 974722571 Migraine without aura and without status migrainosus, not intractable (G43.009) Active confirmed Problem 14669358 Iron deficiency anemia, unspecified iron deficiency anemia type (D50.9) Active confirmed Problem 121460229 Acute seasonal allergic rhinitis (J30.2) Active confirmed Problem 944345216 Normocytic anemia (D64.9) Active confirmed Problem Respiratory tract congestion (376211913) Congestion of upper airway (J98.8) Active confirmed Problem 205713860 History of bariatric surgery (Z98.84) Active confirmed Problem 103679764 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 Temperature 98.4 degrees Fahrenheit 05/13/2024 O2 s at 99% RA. Oximetry 99 05/13/2024 O2 sat 99% RA. Blood pressure diastolic 70 mm Hg 05/13/2024 O2 sat 99% RA. Height 63 in 05/13/2024 O2 sat 99% RA. Blood pressure systolic 104 mm Hg 05/13/2024 O2 s at 99% RA. Weight 174 lbs 05/13/2024 O2 sat 99% RA. BMI 30.82 kg/m2 05/13/2024 O2 sat 99% RA. Encounters Encounter Location Date Provider Diagnosis [facility] [address] [facility] [address] [place] [address] 01/21/2024 Perri Alejo [facility] [address] [facility] [address] [place] [address] 09/20/2024 Provider Migration Muscle pain M79.10 [facility] [address] [place] [address] 01/22/2024 Perri Alejo Vertigo R42 ; Routine medical exam Z00.00 ; B12 deficiency E53.8 ; Other iron deficiency anemia D50.8 ; GERD without esophagitis K21.9 ; Daily headache R51.9 ; Paresthesia R20.2 ; Dizziness R42 ; H/O gastric sleeve Z90.3 and Obesity (BMI 30-39.9) E66.9 [facility] [address] [place] [address] 01/29/2024 Perri Alejo Other iron deficiency anemia D50.8 ; Dizziness R42 ; H/O gastric sleeve Z90.3 and Obesity (BMI 30-39.9) E66.9 [facility] [address] [place] [address] 02/06/2024 Mima Biggs Sore throat J02.9 ; Viral URI J06.9 and Congestion of upper respiratory tract J39.8 [facility] [address] [place] [address] 05/13/2024 Mima Biggs Muscle pain M79.10 [facility] [address] [address] 01/21/2024 Perri Alejo Elevated blood pressure reading R03.0 ; Hypothyroid E03.9 ; Murmur R01.1 ; Dizziness R42 ; Other iron deficiency anemia D50.8 and B12 deficiency E53.8 Assessments Encounter Date Diagnosis (ICD Code) Assessment Notes Treatment Notes Treatment Clinical Notes Section Notes 01/21/2024 Hypothyroid (ICD-10 - E03.9) 01/21/2024 Elevated blood pressure reading (ICD-10 - R03.0) Symptoms likely related to her anemia. Will check labs and refer/treat as indicated. Short term FU in office tomorrow for b/p check. Bring home monitor to appointment. Discussed s/s of worsening condition that warrant urgent fu in ED. 01/22/2024 Routine medical exam (ICD-10 - Z00.00) Mammogram and Pap Smear UTD Colonoscopy scheduled for next month Labs drawn yesterday, recommend fasting lipid panel with next lab draw 01/22/2024 Vertigo (ICD-10 - R42) Reassurance. Discussed vertigo and that it is a time limited condition. Explained vertigo exercises and advised to perform twice daily, once with eyes open and then again with eyes closed. FU in 1-2 weeks if no improvement of symptoms. 01/29/2024 Dizziness (ICD-10 - R42) 01/29/2024 Other iron deficiency anemia (ICD-10 - D50.8) Call placed to care management who plans to have iron infusions scheduled this week. Continue oral iron and b12 replacement daily. Overall feeling better, vertigo has resolved. Will evaluate echo results and refer as indicated. RTC in 3-4 weeks after iron infusion to re-evaluate or sooner prn 09/20/2024 Muscle pain (ICD-10 - M79.10) 05/13/2024 Muscle pain (ICD-10 - M79.10) Discussed the etiology and expected course of pain related to muscle spasm/strain. Discussed the role of pain medications/anti- inflammatories including Ibuprofen and Tylenol, heat pad, stretches, and to walk 30 mins a day. PO steroid ordered and PRN muscle relaxer ordered. Counseled patient to not drive when taking this medication. Also, discussed signs and symptoms of worsening condition that may warrant reassessment in clinic or ED. Patient to call office if no improvement in a week for PT to be ordered at that time. Patient voices understanding and agrees with the plan of care above. 02/06/2024 Viral URI (ICD-10 - J06.9) Reassurance. Strep and covid are negative. Discussed the etiology & expected course of a viral URI and discussed the rationale for not prescribing antibiotics. Continue supportive care with PRN antipyretics, OTC cough/cold meds, nasal saline rinses/Neti pot with distilled water, salt water gargles, cough drops, and humidifier. Encourage PO hydration. Patient must be fever and vomit free x 24 hours without fever reducing medications before going back to school. Discussed the signs and symptoms of worsening condition and need for reassessment in clinic or ED. Keep previously scheduled physical exam or f/u sooner PRN. Patient/family voice understanding and are agreeable to this plan. 02/06/2024 Sore throat (ICD-10 - J02.9) 02/06/2024 Congestion of upper respiratory tract (ICD-10 - J39.8) 01/29/2024 H/O gastric sleeve (ICD-10 - Z90.3) 01/22/2024 B12 deficiency (ICD-10 - E53.8) Restart B12 injections as above. Continue SL supplements daily 01/21/2024 Murmur (ICD-10 - R01.1) 01/21/2024 Dizziness (ICD-10 - R42) 01/29/2024 Obesity (BMI 30-39.9) (ICD-10 - E66.9) 01/22/2024 Other iron deficiency anemia (ICD-10 - D50.8) Trends 10/2023 HGB 9.6, Iron 31, Iron Sat 7%, B12 292. Repeat labs 02/08 HGB 9.6, Iron 32, Iron Sat 7%, B12 238 despite oral B12 and iron. Orthostasis is likely related to her ANSON, needs iron infusions. Discussed case with Dr. Reyes in hematology who agrees with POC and will see patient in clinic tomorrow. Will obtain stool for occult blood x 3. Keep FU for colonoscopy next month 01/21/2024 Other iron deficiency anemia (ICD-10 - D50.8) 01/22/2024 GERD without esophagitis (ICD-10 - K21.9) Well controlled on PPI 01/21/2024 B12 deficiency (ICD-10 - E53.8) 01/22/2024 Daily headache (ICD-10 - R51.9) Given her ongoing issues with dizziness with new headaches and parasthesias, needs MRI and Echo with bubble to further evaluate. Will arrange. 01/22/2024 Paresthesia (ICD-10 - R20.2) 01/22/2024 Dizziness (ICD-10 - R42) 01/22/2024 H/O gastric sleeve (ICD-10 - Z90.3) 01/22/2024 Obesity (BMI 30-39.9) (ICD-10 - E66.9) Recommend weight loss, will continue to monitor Plan Of Treatment Pending Test Test Name Order Date Ultrasound : Carotids 09/04/2006 Rapid Strep 12/06/2010 Rapid Strep 03/07/2007 EKG : In House 11/07/2010 EKG : In House 06/28/2020 EKG : In House 04/12/2015 Cardiolite GXT 11/29/2006 Doppler: Venous, R Lower Extremity 11/02 Doppler: Venous, L Lower Extremity 11/02 Mammogram : Bilateral 08/28/2023 Holter Monitor, 48 hour 12/14/2022 CT Scan : Abdomen and Pelvis with and wi thout contrast 04/10/2018 H-CBC with AUTO DIFF 11/07/2010 H-URINE CULTURE 06/16/2017 H-URINE CULTURE 06/07/2012 H-CMP 11/07/2010 H-CMP 06/16/2017 H-LIPID PANEL 06/16/2017 H-LIPID PANEL 11/07/2010 H-2HR GLUCOSE TOLERANCE 11/07/2010 H-HGBA1C 11/07/2010 H-TSH 11/07/2010 H-TSH 02/01/2011 C-URINE CULTURE 11/28/2013 CT Scan : Chest PE protocol 06/29/2020 Echocardiogram - Bubble Study 01/21/2024 M-Complete Blood Count Auto Diff 023 M-D-Dimer 06/28/2020 M-Comprehensive Metabolic Panel 11/10/19 M-Hemoglobin A1C 11/09/2022 M-Lipid Panel 11/09/2022 M-Thyroid Stimulating Hormone 11/09/2022 M-Vitamin B12 10/23/2023 M-Vitamin B12 01/21/2024 M-Iron and TIBC 01/21/2024 M-Iron and TIBC 10/23/2023 M-HSV 1 and 2-Specific Ab, IgG M-HSV 1 and 2 IgM Abs, Indirect 10/23/19 24 Insurance Providers Payer Name Payer Address Payer Phone Subscriber Number Group Number Insured Name Patient Relationship to Insured Coverage Start Date Coverage End Date [employer] [facility] [address] [address] [place] [address] [id number] Gisel Stahl Self - patient is the insured Medications Administered Medication Instructions Date of Administration Dosage Notes Cyanocobalamin/B-12 Pt's Own Medication 04/15/2015 1 mL Cyanocobalamin/B-12 Pt's Own Medication 04/22/2015 1 mL Cyanocobalamin/B-12 Pt's Own Medication 04/29/2015 1 mL Cyanocobalamin/B-12 Pt's Own Medication 05/06/2015 1 mL Cyanocobalamin/B-12 Pt's Own Medication 05/20/2015 1 mL Dexamethasone 4mg Injection 02/03/2023 4 mg Triamcinolone Acetonide 40mg Injection 11/02/2018 1 mL Medical (General) History Medical History History ICD Code migraine headache Hypothyroidism HTN Left TM perforation Obesity Covid 19 Surgical History Surgery Date(Month/Year) 11/21/2004-11/27/07-03/26/09 bladder scraping 1985 gastric sleeve-[facility] 09/2021 Hospitalization History Reason Date(Month/Year) gastric sleeve 09/2021 syncope Elevated bp and vertigo 06/2016
--- OUTSIDE RECORDS SUMMARY | 2024-11-21 13:07 | XMS_ITS | Data Portability ---
Author Organization ID - [facility] [place] & SONAL Garcia ADMIN Address [address] [place] [id number] Care Team Providers Care Engineer Byproduct Name Role Phone RUDOLPH BYERS Primary Care Provider [phone] Assessment Encounter Date Assessment Date Assessment LastModified by Organization Details LastModified Time 04/11/2022 04/11/2022 Advised qid intake 50% protein [id number] calories/dy less than 100 carbs/dy Long discussion today of InBody results including PBF(percent body fat) SMM (skeletal muscle mass) Visceral fat level level BMR Segmental Fat Analysis and Segmental Lean Analysis. Patient encouraged pt to take minimal calories as per BMR and to anticipate changes in SMM and PBF values not just total weight. Repeat CORINE in 2-3mth suggested Patient is to have bariatric vitamin lab panel. Patient was reassured on today's visit. Dialogue content in great detail regarding the benefits of proper diet as well as regular and routine exercise. In regards to exercise, we discussed reaching target heart rate for least 20 minutes 3 times a week. We also highlighted the importance of staying well hydrated. Proper handwashing was also encouraged. Patient was advised to keep in close contact with their primary care provider and/or any specialty provider (s). We will contact patient with any deficiencies. [email or web address] Not available 04/11/2022 09:07:25 Plan of Treatment Reminders Order Date Submit Date Provider Last Modified By Organization Details Last Modified Time Details Appointments None recorded. Lab CBC w/ auto diff 2022 023 LIGIA Not available 3 08:59:18 CMP, serum or plasma 2022 023 LIGIA Not available 3 09:50:56 HbA1c (hemoglobin A1c), blood 2022 023 [email or web address] 153 Not available 3 14:35:43 lipid panel, blood 2022 023 [email or web address] 153 Not available 3 14:35:44 iron + TIBC + ferritin, serum 2022 023 ssullivan 153 Not available 3 14:35:44 folate, serum 2022 023 LIGIA Not available 3 09:52:11 mma (methylmalo harvey acid), serum 2022 023 [email or web address] 153 Not available 3 14:35:44 vitamin B1 (thiamine), blood 2022 023 LIGIA Not available 3 15:12:54 vitamin D, 25-hydroxy, total, serum 2022 023 ssullivan 153 Not available 3 14:35:44 vitamin E, serum 2022 023 [email or web address] 153 Not available 3 14:35:44 vitamin A (retinol), serum 2022 023 LIGIA Not available 3 06:12:39 CBC w/ auto diff 2021 LIGIA Not available 3 15:55:08 CMP, serum or plasma 2021 022 [email or web address] Not available 3 16:46:59 HbA1c (hemoglobin A1c), blood 2021 022 [email or web address] Not available 3 16:46:59 lipid panel, blood 2021 022 [email or web address] Not available 16:46:59 iron + TIBC + ferritin, serum 2021 022 [email or web address] Not available 3 16:47:00 folate, serum 2021 022 [email or web address] Not available 16:47:00 mma (methylmalo harvey acid), serum 2021 022 Not available 16:47:00 vitamin B1 (thiamine), blood 2021 022 [email or web address] Not available 16:47:00 vitamin D, 25-hydroxy, total, serum 2021 022 Not available 16:47:00 vitamin E, serum 2021 022 Not available 16:47:00 vitamin A (retinol), serum 2021 022 Not available 16:47:01 Referral None recorded. Procedures None recorded. Surgeries None recorded. Imaging electrocard iogram 2022 023 [facility], [address], [place], [address], 13:01:52 RF, upper gastrointes tinal tract, w/ contrast PO 2022 023 [email or web address] 153 [facility] (Centralized Scheduling), [address], [place], [address], 3 15:11:55 Medication Orders Carafate 100 mg/mL oral suspension [address], [address] [place] [address], [address], [place], [address], 3 13:51:44 amitriptyli ne 25 mg tablet [address], [address] [place] [address], [address], [place], [address], 3 13:51:38 famotidine 20 mg tablet 2021 022 [facility], [address], [address], [place], [address], 13:52:58 Patient TargetsNo targets recorded. Patient InstructionsNo instructions recorded. Reason for Referral None Reported. Results Created Date Observation Date Name Description Value Unit Range Abnormal Flag Note LastModifiedBy Organization Detail LastModifiedTime 07/28/1907/28/2022 CBC AUTO W DIFF WBC 4.8 K/uL 4.0-10 .5 Not Available [facility] ([facility]) [address], [place], [address], 07/28/2022 08:59:18 07/28/19 23 07/28/2022 CBC AUTO W DIFF RBC 4.5 M/mm3 4.2-6. 4 Not Available [facility] ([facility]) [address] , [place], [address], 07/28/2022 08:59:18 07/28/19 23 07/28/2022 CBC AUTO W DIFF HGB 12.4 gm/dL 12.5-1 6.0 low Not Available [facility] ([facility]) [address] , [place], [address], 07/28/2022 08:59:18 07/28/19 23 07/28/2022 CBC AUTO W DIFF HCT 39.5 % 37.0-4 7.0 Not Available [facility] ([facility]) [address] , [place], [address], 07/28/2022 08:59:18 07/28/19 23 07/28/2022 CBC AUTO W DIFF MCV 87.8 fL 78-100 Not Available [facility] ([facility]) [address] , [place], [address], 07/28/2022 08:59:18 07/28/19 23 07/28/2022 CBC AUTO W DIFF MCH 27.6 pg 27-31 Not Available [facility] ([facility]) [address] , [place], [address], 07/28/2022 08:59:18 07/28/19 23 07/28/2022 CBC AUTO W DIFF MCHC 31.4 g/dL 32-36 low Not Available [facility] ([facility]) [address], [place], [address], 07/28/2022 08:59:18 07/28/19 23 07/28/2022 CBC AUTO W DIFF RDW 12.9 % 11.5-1 4.0 Not Available [facility] ([facility]) [address], [place], [address], 07/28/2022 08:59:18 07/28/19 23 07/28/2022 CBC AUTO W DIFF platelet count 217 K/uL 150-45 0 Not Available [facility] ([facility]) [address], [place], [address], 07/28/2022 08:59:18 07/28/19 23 07/28/2022 CBC AUTO W DIFF neutrophil% 50.4 % 43-65 Not Available [facility] ([facility]) [address], [place], [address], 07/28/2022 08:59:18 07/28/19 23 07/28/2022 CBC AUTO W DIFF lymphocyte% 33.5 % 20.5-4 5.5 Not Available [facility] ([facility]) [address] , [place], [address], 07/28/2022 08:59:18 07/28/19 23 07/28/2022 CBC AUTO W DIFF monocyte% 6.5 % 5.5-11 .7 Not Available [facility] ([facility]) [address] [place], [address], 07/28/2022 08:59:18 07/28/19 23 07/28/2022 CBC AUTO W DIFF eosinophil% 9.4 % 0.9-2. 9 high Not Available [facility] ([facility]) [address], [place], [address], 07/28/2022 08:59:18 07/28/19 23 07/28/2022 CBC AUTO W DIFF basophil% 0.2 % 0.2-1. 0 Not Available [facility] ([facility]) [address] [facility], [place], [address], 07/28/2022 08:59:18 07/28/19 23 07/28/2022 CBC AUTO W DIFF neutrophil# 2.4 K/uL 2.2-4. 8 Not Available [facility] ([facility]) [address] [facility], [place], [address], 07/28/2022 08:59:18 07/28/19 23 07/28/2022 CBC AUTO W DIFF lymphocyte# 1.6 cell/ mcL 1.3-2. 9 Not Available [facility] ([facility]) [address] [facility], [place], [address], 07/28/2022 08:59:18 07/28/19 23 07/28/2022 CBC AUTO W DIFF monocyte# 0.3 cell/ mcL 0.3-0. 8 Not Available [facility] ([facility]) [address] [facility], [place], [address], 07/28/2022 08:59:18 07/28/19 23 07/28/2022 CBC AUTO W DIFF eosinophil# 0.5 cell/ mcL 0-0.2 high Not Available [facility] ([facility]) [address] [facility] [address], [place], [address], 07/28/2022 08:59:18 07/28/19 23 07/28/2022 CBC AUTO W DIFF basophil# 0.0 cell/ mcL 0.0-1. 0 Not Available [facility] ([facility]) [address], [place], [address], 07/28/2022 08:59:18 07/28/19 23 07/28/2022 CBC AUTO W DIFF manual differential NO Not Available [facility] ([facility]) [address], [place], [address], 07/28/2022 08:59:18 07/28/19 23 07/28/2022 HEMOG LOBIN A1C A1C 5.4 % 3.8-5. 6 GLYCO SYLAT ED HEMOG LOBIN (A1C) EXPEC FAVIOLA RANGE S: <6.5 NON-D IABET IC 6.5-7 .5 EXCEL LENT 7.5-8 .5 GOOD >8.5 POOR Not Available [facility] ([facility]) [address], [place], [address], 07/28/2022 09:50:55 07/28/19 23 07/28/2022 COMP METAB OLIC PANEL sodium 139 mmol/ L 136-14 5 Not Available [facility] ([facility]) [address], [place], [address], 07/28/2022 09:50:56 07/28/19 23 07/28/2022 COMP METAB OLIC PANEL potassium 4.0 mmol/ L 3.6-5. 0 Not Available [facility] ([facility]) [address], [place], [address], 07/28/2022 09:50:56 07/28/19 23 07/28/2022 COMP METAB OLIC PANEL chloride 103 mmol/ L 98-107 Not Available [facility] ([facility]) [address] , [place], [address], 07/28/2022 09:50:56 07/28/19 23 07/28/2022 COMP METAB OLIC PANEL carbon dioxide 27.2 mmol/ L 21.0-3 2.0 Not Available [facility] ([facility]) [address], [place], [address], 07/28/2022 09:50:56 07/28/19 23 07/28/2022 COMP METAB OLIC PANEL anion gap 12.8 Not Available [facility] ([facility]) [address], [place], [address], 07/28/2022 09:50:56 07/28/19 23 07/28/2022 COMP METAB OLIC PANEL glucose 81 mg/dL 70-120 Not Available [facility] ([facility]) [address] , [place], [address], 07/28/2022 09:50:56 07/28/19 23 07/28/2022 COMP METAB OLIC PANEL BUN 13 mg/dL 7-18 Not Available [facility] ([facility]) [address] , [place], [address], 07/28/2022 09:50:56 07/28/19 23 07/28/2022 COMP METAB OLIC PANEL creatinine 0.8 mg/dL 0.6-1. 3 Not Available [facility] ([facility]) [address] , [place], [address], 07/28/2022 09:50:56 07/28/19 23 07/28/2022 COMP METAB OLIC PANEL glomerular filtration rate >60 mlper min 60- Not Available [facility] ([facility]) [address] , [place], [address], 07/28/2022 09:50:56 07/28/19 23 07/28/2022 COMP METAB OLIC PANEL total protein 7.5 g/dL 6.4-8. 2 Not Available [facility] ([facility]) [address] , [place], [address], 07/28/2022 09:50:56 07/28/19 23 07/28/2022 COMP METAB OLIC PANEL albumin 4.0 g/dL 3.4-5. 0 Not Available [facility] ([facility]) [address], [place], [address], 07/28/2022 09:50:56 07/28/19 23 07/28/2022 COMP METAB OLIC PANEL globulin 3.5 Not Available [facility] ([facility]) [address], [place], [address], 07/28/2022 09:50:56 07/28/19 23 07/28/2022 COMP METAB OLIC PANEL alb/glob ratio 1.1 0.7-2 Not Available [facility] ([facility]) [address] , [place], [address], 07/28/2022 09:50:56 07/28/19 23 07/28/2022 COMP METAB OLIC PANEL calcium 9.4 mg/dL 8.5-10 .5 Not Available [facility] ([facility]) [address] , [place], [address], 07/28/2022 09:50:56 07/28/19 23 07/28/2022 COMP METAB OLIC PANEL bilirubin total 0.60 mg/dL 0.10-1 .00 Not Available [facility] ([facility]) [address] , [place], [address], 07/28/2022 09:50:56 07/28/19 23 07/28/2022 COMP METAB OLIC PANEL AST (SGOT) 18 U/L 0-37 Not Available [facility] ([facility]) [address] , [place], [address], 07/28/2022 09:50:56 07/28/19 23 07/28/2022 COMP METAB OLIC PANEL ALT (SGPT) 18 U/L 0-65 Not Available [facility] ([facility]) [address] , [place], [address], 07/28/2022 09:50:56 07/28/19 23 07/28/2022 COMP METAB OLIC PANEL alk phosphatase 76 U/L 46-116 Not Available [facility] ([facility]) [address] [facility], [place], [address], 07/28/2022 09:50:56 07/28/19 23 07/28/2022 LYNNETTE TIN ferritin, serum 13 NG/mL 3-244 Not Available [facility] ([facility]) [address] [facility], [place], [address], 07/28/2022 09:52:09 07/28/19 23 07/28/2022 FOLIC ACID folate (folic acid), serum 3.5 NG/mL 8.6-58 .9 low *Note : Refer troy iverson New Test Metho d in use. Not Available [facility] ([facility]) [address] [facility], [place], [address], 07/28/2022 09:52:11 07/28/19 23 07/28/2022 IRON STUDY (IRON /TIBC /%SAT ) iron 94 mcg/m L 40-180 Not Available [facility] ([facility]) [address] [facility], [place], [address], 07/28/2022 10:22:47 07/28/19 23 07/28/2022 IRON STUDY (IRON /TIBC /%SAT ) TIBC 361 mcg/d L 250-45 0 Not Available [facility] ([facility]) [address] [facility], [place], [address], 07/28/2022 10:22:47 07/28/19 23 07/28/2022 IRON STUDY (IRON /TIBC /%SAT ) %sat 26 15-55 Not Available [facility] ([facility]) [address] [facility], [place], [address], 07/28/2022 10:22:47 07/28/19 23 07/28/2022 VITAM IN D, 25-HY DROXY vitamin D, 25-hydroxy 18.1 NG/mL 30.0-1 00.0 low Not Available [facility] ([facility]) [address] [place], [address], 07/28/2022 10:47:12 07/28/19 23 07/28/2022 LIPID PANEL triglyceride 49 mg/dL 30-200 Not Available [facility] ([facility]) [address] [place], [address], 07/28/2022 11:58:34 07/28/19 23 07/28/2022 LIPID PANEL cholesterol 198 mg/dL 0-200 Not Available [facility] ([facility]) [address] [place], [address], 07/28/2022 11:58:34 07/28/19 23 07/28/2022 LIPID PANEL HDL 52 mg/dL 40-104 Not Available [facility] ([facility]) [address] [place], [address], 07/28/2022 11:58:34 07/28/19 23 07/28/2022 LIPID PANEL LDL calculated 136 mg/dL 0-130 high Not Available [facility] ([facility]) [address] [place], [address], 07/28/2022 11:58:34 07/28/19 23 08/02/2022 VITAM IN B1 ISAAC INE vitamin B1 (thiamine), plasma 93.1 nmol/ L 66.5-2 00.0 Speci men Comme nt: Test( s) 18895 8-Vit . B1, Whole Blood Speci men Comme nt: was nica malcolm and its perfo rmanc e lauren mendez risti cs Speci men Comme nt: deter mined by [employer] [facility]. It has not been spencer ared or appro carlyn Speci men Comme nt: by the Food and Drug Admin istra tion. Perfo rmed at: [facility] [place] [address] [place] [address] Lab Direc tor: Karina esparza MD, Phone : [phone] Not Available [facility] ([facility]) [address] , [place], [address], 08/02/2022 15:12:54 07/28/19 23 08/02/2022 VITAM IN E vitamin E(alpha tocopherol) 10.3 mg/L 7.0-25 .1 Not Available [facility] ([facility]) [address], [place], [address], 08/02/2022 20:10:01 07/28/19 23 08/02/2022 VITAM IN E vitamin E(gamma tocopherol) 1.9 mg/L 0.5-5. 5 Refer ence inter vals for alpha and gamma -toco phero l deter mined from [facility] [employer]ami natio n Surve y, 2004- 2005. Indiv idual s with alpha -toco phero l level s less than 5.0 mg/L are consi dered vitam in E defic ient. Perfo rmed at: [facility] [address] [address] Lab Dire tor: Karina esparza MD, Phone : [phone] Not Available [facility] ([facility]) [address] , [place], [address], 08/02/2022 20:10:01 07/28/19 23 08/03/2022 VITAM IN A vitamin A, serum 21.1 ug/dL 20.1-6 2.0 Refer ence inter vals for vitam in A deter mined from [facility] rp inter nal studi es. Indiv idual s with vitam in A less than 20 ug/dL are consi dered vitam in A defic ient and those with serum kyler ntrat ions less than 10 ug/dL are consi dered sever mann defic ient. . This test was devel oped and its perfo rmanc e lauren cteri stics deter mined by [employer] . It has not been clear ed or appro carlyn by the Food and Drug Admin istra tion. Perfo rmed at: [facility] [place] [place] [address] [place] [address] Lab Direc tor: Karina esparza MD, Phone : [phone] Not Available [facility] ([facility]) [address] [facility], [place], [address], 08/03/2022 06:12:39 07/28/19 23 08/09/2022 METHY LMALO HARVEY ACID QUANT methylmaloni c acid, serum 777 nmol/ L 0-378 high Speci men Comme nt: Test( s) 77536 7-Met hylma lonic Acid, Serum Speci men Comme nt: was devel oped and its perfo rmanc e lauren cte risti cs Speci men Comme nt: deter mined by [employer]. It has not been spencer ared or appro carlyn Speci men Comme nt: by the Food and Drug Admin istra tion. Perfo rmed at: [facility] [address] [address] Lab Direc tor: Karina esparza MD, Phone : [phone] Not Available [facility] ([facility]) [address] [facility], [place], [address], 08/09/2022 13:10:51 07/28/19 23 07/28/2022 ugi with KUB [facility] [address] [place] [address] Phone: Fax: Name: MALAIKA SOUTH Exam Date: 023 : [birth year] Age 42 Gender : F Access ion: [id number] Physic shona: SIZEMO RE, EDWARD Facili ty: [facility] Facili ty HSV: Outpat ient Exam: UGI WITH KUB UPPER GI SERIES , single contra st HISTOR Y: Epigas tric pain after eating The esopha jonah demons trates no morpho logic abnorm alitie s. No mucosa l defect s are seen and motili ty appear s normal . The patien t is status post sleeve surger y. No gastri c fillin g defect s are seen. The duoden al bulb and sweep appear unrema rkable . There is no hiatal hernia . There is minima l gastro esopha geal reflux observ ed.The patien t was admini stered a 13 mm barium tablet , the tablet passes the GE juncti on withou t compli cation s. There are gas filled coloni c loops of bowel noted. IMPRES SOL: Status post gastri c sleeve surger y with minima l gastro esopha geal reflux . Flouro scopy time: 1.2 minute s Number of images : 10 Images review ed, interp reted, and dictat ed by Dr. Oscar Foote . Transc ribed by Rafael Bryant PA-C Dictat ed By: Oscar Turner Transc ribed By: Oscar Foote Transc ribed On: 023 9:05 AM Electr onical ly signed by: Oscar Turner 023 [facility] Legall y authen ticate d by KIERA MCMULLEN 07-28 09:05: 37 CC'ed Logic: Orderi ng Provid er: SIZEMO AMADA FREIRE Attend ing Provid er: SIZEMO RE TED Admitt ing Provid er: SIZEMO RE EDWARD [email or web address] [facility] [address], [place], [address], 07/28/2022 11:59:48 01/05/2012/14/2022 cardi ac clear ance* No observ ation record ed. [email or web address] [facility] (Med Record) [address], [place], [address], 04/20/2023 09:09:03 01/05/20 23 12/21/2022 cardi ac clear ance* No observ ation record ed. [email or web address] [facility] [address], [place], [address], 04/20/2023 09:08:08 01/23/20 23 01/23/2023 elect rocar diogr am No observ ation record ed. [facility] [address], [place], [address], 01/23/2023 13:04:23 01/24/20 23 01/22/2023 elect rocar diogr am No observ ation record ed. [facility] [address], [place], [address], 01/23/2023 13:01:52 08/15/19 24 07/28/2022 ugi with KUB [facility] [address] [place] [address] Phone: Fax: Name: MALAIKA SOUTH Exam Date: 023 : [birth year] Age 42 Gender : F Access ion: [id number] Physic shona: SIZEMO RE, EDWARD Facili ty: [facility] Facili ty HSV: Outpat ient Exam: UGI WITH KUB UPPER GI SERIES , single contra st HISTOR Y: Epigas tric pain after eating The esopha jonah demons trates no morpho logic abnorm alitie s. No mucosa l defect s are seen and motili ty appear s normal . The patien t is status post sleeve surger y. No gastri c fillin g defect s are seen. The duoden al bulb and sweep appear unrema rkable . There is no hiatal hernia . There is minima l gastro esopha geal reflux observ ed.The patien t was admini stered a 13 mm barium tablet , the tablet passes the GE juncti on withou t compli cation s. There are gas filled coloni c loops of bowel noted. IMPRES SOL: Status post gastri c sleeve surger y with minima l gastro esopha geal reflux . Flouro scopy time: 1.2 minute s Number of images : 10 Images review ed, interp reted, and dictat ed by Dr. Oscar Foote . Transc ribed by Rafael Bryant PA-C Dictat ed By: Oscar Turner Transc ribed By: Oscar Foote Transc ribed On: 023 9:05 AM Electr onical ly signed by: Oscar Turner 023 Addend um 1 Flouos copy time: 1.2 minute s Radiat ion exposu re in Refere nce air Kerma: 41.14 mGy Dictat ed By: MICAELA HUSSEIN Dictat ed Date: 10:33: 42 AM Electr onical ly signed by: MICAELA HUSSEIN Thank you for referr MALAIKA Yan to [facility]. Legall y authen ticate d by POPE MICAELA Wallace 2023-0 08-15 10:33: 42 CC'ed Logic: Orderi ng Provid er: RUBEN FREIRE Attend ing Provid er: CLAUDIOMO AMADA FREIRE Admitt ing Provid er: SIZEMO RE TED [email or web address] [facility] [address] [facility], [place], [address], 08/15/2023 10:55:04 Result Notes None recorded. Problems Name Problem SNOMED Code Status Onset Date Resolution Date Notes Provider Name and Address Organization Details Recorded Time Laparoscopic sleeve gastrectomy Active 2021 Ted Woodard DNP, CPC CODER, OCEANOGRAPHIC METEOROLOGIST-C [address] [facility], [place], [address] , [facility] & [place] 2 09:07:34 Morbid obesity 317601907 Active 2021 Ted Woodard DNP, CPC CODER, OCEANOGRAPHIC METEOROLOGIST-C [address] [facility], [place], [address] , [facility] - [facility] & [place] 2 09:08:10 Dyslipidemia 453947334 Active 2021 Ted Woodard DNP, EMRE, OCEANOGRAPHIC METEOROLOGIST-C [address], [place], [place], [address] [place] [address] , [place] - [facility] - [place] & [place] 2 09:08:17 Elevated blood-pressur e reading without diagnosis of hypertension 433350919 Active 2021 Ted Woodard DNP, EMRE, OCEANOGRAPHIC METEOROLOGIST-C [address], [place], [place], [address] [place] [address] , [place] - [facility] - [place] & [place] 2 14:50:06 Intentional weight loss 675179952 Active 2021 Ted Woodard DNP, EMRE, OCEANOGRAPHIC METEOROLOGIST-C [address], [place], [address] [place] [address] , [place] - [facility] - [place] & [place] 2 14:52:58 Heartburn 03334088 Active 2021 Ted Woodard DNP, CPC CODER, OCEANOGRAPHIC METEOROLOGIST-C [address], [place], [address] [place] [address] , [place] - [facility] - [place] & [place] 2 15:12:32 Increased belching 59509598 Active 2021 Ted Woodard DNP, CPC CODER, OCEANOGRAPHIC METEOROLOGIST-C [address], [place], [address] [place] [address] , [place] - [facility] - [place] & [place] 2 15:12:40 Obesity 660919411 Active 2022 Ted Woodard DNP, CPC CODER, OCEANOGRAPHIC METEOROLOGIST-C [address], [place], [address] [place] [address] , [place] - [facility] - [place] & [place] 3 15:28:14 Epigastric pain 96958443 Active 2022 Ted Woodard DNP, CPC CODER, OCEANOGRAPHIC METEOROLOGIST-C [address], [place], [address] [place] [address] , [place] [facility] - [place] & [place] 3 15:45:12 Transient altered mental status 688339021 Active 2022 Angel Luis Cui MD [address] [facility], [place], [address] , [place] - [facility] - [place] & [place] 3 14:09:18 Problem Notes None recorded. Procedures Surgical History Date Name Laterality Status Provider Name and Address Organization Details Recorded Time 02/26/20 completed Rosina Tod [place] [facility] - [place] & [place] 01/22/2023 13:42:29 section completed Cedric Sharp-Beckha m [place] [place] 04/11/2022 14:47:19 extraction of wisdom tooth completed Cedric Sharp-[place]ha m [place] [facility] [place] 04/11/2022 14:47:24 Tubal Ligation completed Cedric Sharp-Beckha m [place] [place] 04/11/2022 14:47:39 laparoscopic sleeve gastrectomy completed Cedric Soliz-Becksamuel m [place] [place] 04/11/2022 14:47:47 Imaging Results None recorded. Procedure Notes None recorded. Medical Equipment None Reported. Allergies Allergen ID Allergen Name Allergen Category Reaction Reaction Severity Criticality Documentation Date Start Date Code Code System Note Provider Name and Address Organization Details Recorded Time 00384 Product containin g penicilli n (product) medicatio n Not available Not available Not available 04/11/2022 86122 8001 SNOMED Cedric Sharp-Bec franc[place] null, [place] - [facility] & [place] 2 14:42:41 68625 Lexapro medicatio n rash moderate Not available 04/11/2022 37426 1 RxNorm Cedric Sharp-Bec franc[place] null, [place] [facility] [place] 2 14:42:50 03636 penicilli n G Not available hives itching moderate moderate Not available 01/22/2023 7980 RxNorm Rosina Tod null, [place] [facility] [place] 3 13:42:12 Medications Name Sig Start Date Stop Date Status Note LastModified by Organization Details LastModified Time Carafate 100 mg/mL oral suspension Take 10 mL 4 times a day by oral route for 30 days. 01/22 completed Not Available Not Available Not Available azithromycin 250 mg tablet 04/11 completed Not Available Not Available Not Available fluconazole 150 mg tablet 01/22 completed Not Available Not Available Not Available lisinopril 20 mg tablet 04/11 completed Not Available Not Available Not Available prednisone 20 mg tablet 04/11 completed Not Available Not Available Not Available amlodipine 5 mg tablet TAKE 1 TABLET BY MOUTH ONCE DAILY 04/11 completed Not Available Not Available Not Available potassium chloride ER 20 mEq tablet,exten ded release(part /cryst) 04/11 completed Not Available Not Available Not Available famotidine 20 mg tablet Take 1 tablet every day by oral route for 30 days. 01/22 completed Not Available Not Available Not Available amitriptylin e 25 mg tablet Take 1 tablet every day by oral route for 30 days. 01/22 completed Not Available Not Available Not Available ferrous sulfate 325 mg (65 mg iron) tablet Take 1 tablet three times a week active Not Available Not Available No t Available nystatin 100,000 unit/gram topical cream 04/11 completed Not Available Not Available Not Available lisinopril 10 mg tablet 04/11 completed Not Available Not Available Not Available gabapentin 300 mg capsule 04/11 completed Not Available Not Available Not Available omeprazole 20 mg capsule,benny yed release Take by oral route for 30 days. active Not Available Not Available No t Available folic acid 1 mg tablet Take 1 tablet daily active Not Available Not Available No t Available Vitamin C 250 mg tablet Take 2 tablets every day by oral route. active Not Available Not Available No t Available Vitamin D2 1,250 mcg (50,000 unit) capsule 01/22 completed Not Available Not Available Not Available celecoxib 100 mg capsule 04/11 completed Not Available Not Available Not Available hydroxyzine HCl 10 mg tablet 04/11 completed Not Available Not Available Not Available cefdinir 300 mg capsule 01/22 completed Not Available Not Available Not Available fluticasone propionate 50 mcg/actuatio n nasal spray,suspen sol 07/12 completed Not Available Not Available Not Available Vitamin B12 500 mcg tablet Take 2 tablets every day by oral route. active Not Available Not Available No t Available Vitamin D patch 01/22 completed Not Available Not Available Not Available multivitamin patch 01/22 completed Not Available Not Available Not Available Vitamin B12 patch 01/22 completed Not Available Not Available Not Available cholecalcife rol (vitamin D3) 1,250 mcg (50,000 unit) capsule 01/22 completed Not Available Not Available Not Available Ubrelvy 100 mg tablet 04/11 completed Not Available Not Available Not Available QuickVue At-Home COVID-19 Test kit 04/11 completed Not Available Not Available Not Available Hair, Skin and Nails (biotin) 01/22 completed Not Available Not Available Not Available Vitals Date Recorded Body height Body mass index (BMI) Body weight Body temperature Heart rate Systolic blood pressure Diastolic blood pressure Provider Name and Address Organization Details Last Updated DateTime 3 160.02 cm 32.8 kg/m2 40952.5 9 g 97.5 [degF] 63 /min 151 mm[Hg] 94 mm[Hg] Justyna Spivey [facility] & [place] 3 15:24:34 Date Recorded Body height Body mass index (BMI) Body weight Oxygen saturation Oxygen saturation in Arterial blood by Pulse oximetry Heart rate Systolic blood pressure Diastolic blood pressure Provider Name and Address Organization Details Last Updated DateTime 3 160.02 cm 32.6 kg/m2 80983 g 100 % 100 % 71 /min 124 mm[Hg] 86 mm[Hg] Rosina Baron [facility] & [place] 3 13:55:36 Date Recorded Body temperature Body height Body mass index (BMI) Body weight Heart rate Systolic blood pressure Diastolic blood pressure Provider Name and Address Organization Details Last Updated DateTime 2 98.2 [degF] 160.02 cm 36.1 kg/m2 68776.7 7 g 76 /min 138 mm[Hg] 94 mm[Hg] Cedric singh [facility] & [place] 2 14:46:49 Social History Question Answer Notes LastModified by Organizat ion Details LastModified Time Tobacco Smoking Status Never Smoker Cedric salcido [facility] & [place] 04/11/2022 14:44:28 Do You Have An Advance Directive? No Information not available 01/22/2023 Are You Blind Or Do You Have Difficulty Seeing? Yes Information not available 01/22/2023 What Was The Date Of Your Most Recent Tobacco Screening? 04/08/2022 Information not available 01/22/2023 Are You Passively Exposed To Smoke? Yes Information not available 01/22/2023 How Many Years Have You Smoked Tobacco? N/A Information not available 01/22/2023 Sex: Female Functional Status Question Answer Note LastModified by Organizat ion Details LastModified Time Do you use any illicit or recreational drugs? No Information not available 01/22/2023 What is your level of alcohol consumption? Occasional Information not available 01/22/2023 What is your exercise level? Moderate Information not available 01/22/2023 Mental Status Question Answer Note LastModified by Organization D etails LastModified Time Do you feel stressed (tense, restless, nervous, or anxious, or unable to sleep at night)? [id number] Information not available 01/22/2023 Family History Relationship Description Onset Age of this Age Resolved Age Notes LastModified by Organization Details LastModified Time Father No current problems or disability Not available 01/22 13:54:33 Mother No current problems or disability Not available 01/22 13:54:33 Medical History Condition Response Allergies/Hayfever Y Vision or Eye Problems Y Kidney Stones Y Infertility Y Thyroid Problems Y Depression Y Hypothyroidism Y Bladder or Kidney Problems Y Reflux/GERD Y Hypertension Y Chicken Pox Y Gynecological History Statement/Question Response Abnormal Pap N Flow Moderate 02/25/2022 Date of LMP 03/15/2022 Sexually Active? Y Menses Monthly Y Duration of Flow (days) 5 Age at Menarche 12 Obstetrics History GPAL:G 0 P 0 0 0 0 Past Encounters Encounter ID Performer Location Encounter Start Date Encounter Closed Date Diagnosis/Indication Diagnosis SNOMED-CT Code Diagnosis ICD10 Code Diagnosis Note [id number] Ted Woodard, DNP, CPC CODER, OCEANOGRAPHIC METEOROLOGIST-C [facility] [address] [place] [address] 04/11/2022 14:28:56 04/11/2022 15:44:49 Dyslipidemia 099107958 E78.5 Morbid obesity 884634034 E66.01 History of bariatric surgical procedure 753233280 Z98.84 . History of gastrectomy 784609303 Z90.3 Patient is status post bariatric surgery and at increased risk for vitamin deficienci es and malnutriti on. Bariatric vitamin panel ordered today. Patient will be contacted to correct any vitamin deficienci es. Elevated blood-pressure reading without diagnosis of hypertension 337452126 R03.0 Intentiona l weight loss 929617112 R63.8 Heartburn 41618546 R12 GERD-patie nt was reassured. We discussed lifestyle modificati ons in patient-di rected therapy which are designed to decrease distal esophageal acid exposure. Plan is to continue current proton pump inhibitor. will add famotidine .Other lifestyle modificati ons include elevating the head of the bed on 15 cm of blocks or sleep on a wedge-shap ed bolster. Patient was encouraged to consume smaller meals and do not eat for 3 hours prior to lying recumbent. Ultimately patient has been advised to avoid large, high fat meals and avoid foods that may aggravate the problem. If symptoms continue after 3 months we will proceed with upper GI with possible EGD. May also add Carafate as needed. Increased belching 78191 005 R14.2 [id number] Ted Woodard, DNP, CPC CODER, OCEANOGRAPHIC METEOROLOGIST-C [facility]a [facility] [address] [facility] [address] [address] [place] [address] 07/21/2022 15:11:20 07/21/2022 15:47:32 History of bariatric surgical procedure 115881211 Z98.84 Advised qid intake 50% protein 1488-7361 calories/d y less than 100 carbs/dy Long discussion today of InBody results including PBF(percen t body fat) SMM (skeletal muscle mass) Visceral fat level level BMR Segmental Fat Analysis and Segmental Lean Analysis. Patient encouraged pt to take minimal calories as per BMR and to anticipate changes in SMM and PBF values not just total weight. Repeat CORINE in 2-3mth suggested Patient is to have bariatric vitamin lab panel. Patient was reassured on today's visit. Dialogue content in great detail regarding the benefits of proper diet as well as regular and routine exercise. In regards to exercise, we discussed reaching target heart rate for least 20 minutes 3 times a week. We also highlighte d the importance of staying well hydrated. Proper handwashin g was also encouraged . Patient was advised to keep in close contact with their primary care provider and/or any specialty provider (s). We will contact patient with any deficienci es. History of gastrectomy 432619590 Z90.3 Patient is status post bariatric surgery and at increased risk for vitamin deficienci es and malnutriti on. Bariatric vitamin panel ordered today. Patient will be contacted to correct any vitamin deficienci es. Intentiona l weight loss 100749484 R63.8 Elevated blood-pressure reading without diagnosis of hypertension 826529787 R03.0 Dyslipidemia 728153768 E 78.5 Obesity 030654201 E66.9 Epigastric pain 72485444 R10.13 may try tylenol as needed for pain as well as heating pad. will proceed with UGI. Possible CT scan of abdomen. [id number] Angel Luis Cui MD [facility] [address] [place] [address] 01/22/2023 13:25:38 01/22/2023 14:59:38 Transient altered mental status 853936258 R41.82 I do not think this is related to bradycardi a. no evidence of conduction system disease noted on EKG with an average heart rate of 71 beats per minute on monitor with No Matt arrhythmia s noted.Echo structural ly nml heartConsi yesenia neuro evaluation Health Concerns Section Related Observation LastModified by Organization Detai ls LastModified Time None Recorded Concern Status LastModified by Organization Details LastModified Time None Recorded Advance Directives Directive N: Payers Insurance Date Sequence Insurance Name Policy Number Policy Noel Covered Member ID Noel Member ID Guarantor Name 01/19/2023 1 [employer]ETNA [facility] (MEDICAID HMO) Malaika South [id number] Malaika [place] Notes Date Note Type Note Provider Name and Address Organization Details Recorded Time 04/11/2022 text/html Patient presents the office today for routine 6 month follow-up status post bariatric gastric sleeve surgery (10.10.2021). Patient doing well. Reports q.i.d. small meal intake. Reports 50g/dy protein intake and good hydration.Patient is drinking 64 ounces of water a day.Daily Calories 800Taking routine vitamins as advised.Heartburn/gas troesophageal reflux:yes. patient has taken omeprazole twice a day. She states that she does wake up at night with reflux. She also reports causes burning in her throat as well as belching.Pt Denies : abdominal pain, prandial issues Nausea, Vomiting, bowel or bladder issuesTotal Weight loss Since last office visit has been 23.2 lbsPt is happy with their quality of life after Weight loss Surgery. Today's InBody reveals a skeletal muscle mass = 54.2 lb,body fat mass =101.6 lb,BMI = 36.1Percent body fat = 49.9Basal Metabolic Rate =1370 kilo calories Ted Woodard, JIGNA, CPC CODER, OCEANOGRAPHIC METEOROLOGIST-C [address] [facility], [place], [address], [facility] [place] 04/11/2022 15:14:09 07/21/2022 text/html Patient presents the office today for routine 9 month follow-up status post bariatric gastric sleeve surgery ( 10/10 ). Patient doing well. Reports q.i.d. small meal intake. Reports 70g/dy protein intake and good hydration.Patient is drinking 64 ounces of water a day.Daily Calories 900-1000Taking routine vitamins Via patch as advised.Heartburn/gas troesophageal reflux: deniesPt Denies : abdominal pain, prandial issues Nausea, Vomiting, bowel or bladder issuesTotal Weight loss Since last office visit has been 18 lbsPt is happy with their quality of life after Weight loss Surgery.patient is reporting some mid epigastric abdominal pain has been present for the past week. She reports no reflux and no burning. She describes it as a stabbing sensation and does radiate to the left lower quadrant. She states that her bowels are moving without any issues. No constipation noted. Her last bowel movement was this morning and was reported as normal. She states this abdominal pain typically begins 30 minutes after consuming a meal. She tells me that she does not eat fast. She has not tried any frab-hki-ozywwpa medications or treatments. Currently rates mid epigastric abdominal pain at 3/10.Today's InBody reveals a skeletal muscle mass = 54.0 lb,body fat mass = 82.9 lb,BMI = 32.8Percent body fat = 44.8Basal Metabolic Rate = 1370 kilo calories Ted Woodard, DNP, CPC CODER, OCEANOGRAPHIC METEOROLOGIST-C [address], [place], [address], [facility] & [place] 07/21/2022 15:48:08 01/22/2023 text/html 42 F here For evaluation of altered mentationRefer: KEKE Jones, [employer] She reports altered mentation when she was walking and did not know how she got from point A to B .She has had 4 episodes Over the past month or so. Associated with diaphoresis. she is noticed blood sugars have been in the 50s' during these spells. she is had cardiac evaluation via PCP including Holter and echo as noted belowShe had gastric sleeve 10/2021, lost 140lbsNo prior CAD/CVA Holter 12/15/2022: Baseline heart rate was sinus heart rate ranging from 40 to 165 beats per minute average heart rate of 71 beats per minute longest pause was 2.1 seconds. No other arrhythmia noted. echo 12/29/2022: Normal EF no valvular abnormalitiesEKG 01/22/2023 NSR 76 AR interval 190 QRS 80 QTC 420 Angel Luis Cui MD [address], [place], [address], [facility] & [place] 01/22/2023 14:47:01 OBGyn Episode No OBEpisode recorded.
[2024-11-21 13:19] VITALS: BP 116/64; PULSE 79; RESP 20; TEMP 36.7; O2SAT 98
[2024-11-21] MEDS: SODIUM CHLORIDE 0.9% 50ML BAG 50 ML IV (13:19)
[2024-11-21] MEDS: SODIUM CHLORIDE 0.9% 10ML FLUSH SYRINGE 10 ML IV (13:19)
[2024-11-21] MEDS: IRON SUCROSE COMPLEX 200 MG in 0.9 % SODIUM CHLORIDE 100 ML 220 MG IV (13:19)
[2024-11-21 14:00] VITALS: BP 110/59; PULSE 77; RESP 20; O2SAT 98
== END 2024-11-21 14:00 | disposition home or self-care (01) ==
LOC: INF 13:03
PROVIDERS: PCP Nurse Practitioner Family; Visit Provider Internal Medicine Medical Oncology
DX: D50.8 Other iron deficiency anemias (principal); K95.89 Other complications of other bariatric procedure
CPT/HCPCS: 96365; J1756

== ENCOUNTER 2024-11-28 12:57 | Outpatient (CLI) | payer OTHER, SELFPAY ==
--- OUTSIDE RECORDS SUMMARY | 2024-02-26 11:30 | XMS_ITS ---
Author Organization [facility] Address [address] [place] [address] Care Team Providers Care Tax Technician Name Role Phone Messi Mejia Primary Care Provider [phone] Perri Alejo [phone] REASON FOR VISIT 3 Week F/U Encounters Encounter Location Date Provider Diagnosis [facility] [address] [place], [place] [address] 02/26/2024 Perri Alejo Plan Of Treatment No Information Progress Notes * Gisel STAHL FDOB:1980 (44 yo F)Acc No.[id number]:02/26/2024 Progress Notes Patient: Gisel YOUNGBLOOD Provider: Sy Alejo APRN :1980 A ge:43 Y S ex:Female Date:02/26/2024 Address:[address] [id number] Pcp:Messi Mejia Subjective: * Chief Complaints: * 1 . 3 Week F/U. * Medical History: Objective: * Vitals: Assessment: Plan: * Treatment: * * Electronic signature of Teresita Alejo APRN on 11/28/2024 at 01:04 PM EDT Sign off status: Pending * Provider: Sy Alejo APRN Date: 0 02/26/2024 Generated for Rafa acosta/Steph/Terellitting on: 0 11/28/2024 01:04 PM EDT
--- OUTSIDE RECORDS SUMMARY | 2024-09-20 17:30 | XMS_ITS ---
Author Organization [facility] Address [address] [place] [address] Care Team Providers Care Retail Leader Name Role Phone Messi Mejia Primary Care Provider Perri Alejo Unavailable [phone] Migration, Provider Unavailable Unavailable Allergies Allergen (clinical drug ingredient) Drug/Non Drug Allergy documented on EMR Reaction Allergy Type Onset Date Status escitalopram Lexapro rash Drug Allergy Acti ve Penicillin hives Drug Allergy Active REASON FOR VISIT [facility] To [facility] Conversion Encounter Medications Medication SIG [...] Active Encounters Encounter Location Date Provider Diagnosis [facility] [address] [place] [address] 09/20/2024 Provider Migration Muscle pain M79.10 Assessments [...] * Gisel STAHL FDOB:1980 (44 yo F)Acc No.[id number]:09/20/2024 Patient: Gisel YOUNGBLOOD Provider: Sydnie Preston :1980 A ge:44 Y S ex:Female Date:09/20/2024 Address:[address] [place] [address] [id number] Pcp:Messi Mejia Subjective: * [...] Electronic signature of Prov ider Migration on 11/28/2024 at 01:04 PM EDT Sign off status: Pending * Provider: Sydnie cunha Migration Date: 0 09/20/2024 Generated for Rafa acosta/Steph/Gaysmitting on: 0 11/28/2024 01:04 PM EDT
--- OUTSIDE RECORDS SUMMARY | 2024-11-28 13:04 | XMS_ITS | Patient Health Record ---
Author Organization [facility] Address [address] [place] [address] [place] [address] Care Team Providers Care Distilling Department Supervisor Name Role Phone Messi Mejia Primary Care Provider Perri Alejo Unavailable [phone] Mima Biggs Unavailable [phone] Migration, Provider Unavailable Unavailable Allergies Allergen (clinical drug ingredient) Drug/Non Drug Allergy documented on EMR Reaction Allergy Type Onset Date Status escitalopram Lexapro rash Drug Allergy Acti ve Penicillin hives Drug Allergy Active Results Component Value Reference Range Notes Holter Monitor, 48 hour Reviewed date:02/01/2024 03:16:14 PM Interpretation: Performing Lab: Notes/Report: MRI : Head, With and Without Contrast Reviewed date:02/22/2024 02:41:32 PM Interpretation: Performing Lab: Notes/Report: Echocardiogram - Bubble Stud y Reviewed date:02/05/2024 03:00:39 PM Interpretation: Performing Lab: Notes/Report: M-Complete Blood Count Auto Diff Reviewed date:01/22/2024 [...] 0.1 0.0-0.4 K/mm3 BA# 0.0 0-0.2 K/mm3 M-Comprehensive Metabolic Pa yuly Reviewed date:01/22/2024 02:39:28 [...] AGRATIO 1.3 1.1-1.8 ALP 67 38-126 U/L M-Thyroid Stimulating Hormon e Reviewed date:01/22/2024 02:39:28 PM Interpretation: Performing Lab: Notes/Report: TSH 1.99 0.465-4.68 uIU/mL H-FETIBC Reviewed date:01/22/2024 02:39:28 PM Interpretation: Performing Lab: Notes/Report: FE 32 37-170 ug/dL DTIBC 443 265-497 ug/dL IRONSAT 7.67056 15-55 % H-VITB12 Reviewed date:01/22/2024 02:39:28 PM Interpretation: Performing Lab: Notes/Report: VITB12 238 239-931 pg/mL Rapid Strep Reviewed date:02/06/2024 12:34:35 PM Interpretation:Negative Performing Lab: Notes/Report: Negative Rapid Covid Antigen Reviewed date:02/06/2024 01:12:28 PM Interpretation:Negative Performing Lab: Notes/Report: Negative Medications [...] Vaccine Route Administration Date Status Comme nts Adacel (Tdap) Unknown 08/27/2013 Administered FLUZONE 6MO - OLDER Unknown 05/31/2019 Administered Influenza-Fluzone 3+years (NON-MEDICARE) IM Intramuscular 04/12/2015 Administered Problems Problem Type SNOMED Code ICD Code Onset Dates Problem Status W/U Status Risk Notes Problem 62912106428560 Morbid (severe) obesity due to excess calories (E66.01) Active confirmed Problem 119473324 Other headache syndrome (G44.89) Active confirmed Problem Essential hypertension (95410867) Essential (primary) hypertension (I10) Active confirmed Problem Ataxia (54664969) Ataxia, unspecified (R27.0) Active confirmed Problem Syncope and collapse (955339763) Syncope and collapse (R55) Active confirmed Problem 77241041 Hypothyroid (E03.9) Active confirmed Problem 75442432 Paresthesia (R20.2) Active confirmed Problem 75989162 Anxiety (F41.9) Active confirmed Problem Sore throat (173677821) Sore throat (J02.9) Active confirmed Problem 145164715 GERD without esophagitis (K21.9) Active confirmed Problem 019335064 BMI 31.0-31.9,adult (Z68.31) Active confirmed Problem 80254079 Murmur (R01.1) Active confirmed Problem 043658452 Obesity (BMI 30-39.9) (E66.9) Active confirmed Problem 66587513 Other iron deficiency anemia (D50.8) Active confirmed Problem 527567653 Abnormal mammogram (R92.8) Active confirmed Problem 021771735 Morbid obesity due to excess calories (E66.01) Active confirmed Problem 099227308 Tension headache (G44.209) Active confirmed Problem 899161930 Hypoglycemia (E16.2) Active confirmed Problem 452152547 Migraine without aura and without status migrainosus, not intractable (G43.009) Active confirmed Problem 14349685 Iron deficiency anemia, unspecified iron deficiency anemia type (D50.9) Active confirmed Problem 266516608 Acute seasonal allergic rhinitis (J30.2) Active confirmed Problem 750835571 Normocytic anemia (D64.9) Active confirmed Problem Respiratory tract congestion (486565580) Congestion of upper airway (J98.8) Active confirmed Problem 236373507 History of bariatric surgery (Z98.84) Active confirmed Problem 033393350 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 Encounters Encounter Location Date Provider Diagnosis [facility] [address] [facility] [address] [place] [address] 01/21/2024 Perri Alejo [facility] [address] [facility] [address] [place] [address] 09/20/2024 Provider Migration Muscle pain M79.10 [facility] [address] [place] [address] 01/22/2024 Perri Alejo Vertigo R42 ; Routine medical exam Z00.00 ; B12 deficiency E53.8 ; Other iron deficiency anemia D50.8 ; GERD without esophagitis K21.9 ; Daily headache R51.9 ; Paresthesia R20.2 ; Dizziness R42 ; H/O gastric sleeve Z90.3 and Obesity (BMI 30-39.9) E66.9 [facility] [address] [place] [address] 01/29/2024 Perri Alejo Other iron deficiency anemia D50.8 ; Dizziness R42 ; H/O gastric sleeve Z90.3 and Obesity (BMI 30-39.9) E66.9 [facility] [address] [place] [address] 02/06/2024 Mima Biggs Sore throat J02.9 ; Viral URI J06.9 and Congestion of upper respiratory tract J39.8 [facility] [address] [place] [address] 05/13/2024 Mima Biggs Muscle pain M79.10 [facility] [address] [address] 01/21/2024 Perri Alejo Elevated blood pressure reading [...] iron infusion to re-evaluate or sooner prn 05/13/2024 Muscle pain (ICD-10 - M79.10) Discussed [...] agrees with the plan of care above. 09/20/2024 Muscle pain (ICD-10 - M79.10) 02/06/2024 Viral URI (ICD-10 - J06.9) Reassurance. [...] - R01.1) 01/21/2024 Dizziness (ICD-10 - R42) 01/22/2024 Other iron deficiency anemia (ICD-10 - [...] 3. Keep FU for colonoscopy next month 01/29/2024 Obesity (BMI 30-39.9) (ICD-10 - E66.9) 01/22/2024 GERD without esophagitis (ICD-10 - K21.9) Well controlled on PPI 01/21/2024 Other iron deficiency anemia (ICD-10 - D50.8) 01/21/2024 B12 deficiency (ICD-10 - E53.8) 01/22/2024 [...] Rapid Strep 03/07/2007 EKG : In House 06/28/2020 EKG : In House 04/12/2015 EKG : In House 11/07/2010 Cardiolite GXT 11/29/2006 Doppler: Venous, R Lower Extremity 11/02 Doppler: Venous, L Lower Extremity 11/02 Mammogram : Bilateral 08/28/2023 Holter Monitor, 48 hour 12/14/2022 CT Scan : Abdomen and Pelvis with and wi thout contrast 04/10/2018 H-CBC with AUTO DIFF 11/07/2010 H-URINE CULTURE 06/16/2017 H-URINE CULTURE 06/07/2012 H-CMP 06/16/2017 H-CMP 11/07/2010 H-LIPID PANEL 06/16/2017 H-LIPID PANEL 11/07/2010 H-2HR [...] Coverage Start Date Coverage End Date AETNA [facility] [address] [address] [place] [address] [id number] Gisel Stahl Self - patient is the [...] Surgery Date(Month/Year) 11/21/2004-11/27/07-03/26/09 bladder scraping 1985 gastric sleeve-[facility] 09/2021 Hospitalization History Reason Date(Month/Year) gastric sleeve 09/2021 syncope Elevated bp and vertigo 06/2016
--- OUTSIDE RECORDS SUMMARY | 2024-11-28 13:04 | XMS_ITS | Clinical Summary ---
Author Organization Healthcare Address [address] [place] [address] Care Team Providers Care Transmission Calibration Engineer Name Role Phone Messi Mejia MD Primary Care Provider [phone] Family History Medical History Relation Name Comments [...] (2 - Td or Tdap) 08/28/2023 08/27/2013 [id number] Vaccine (3 - 2023- season) 2024 02/04/2021, [...] age to complete this topic Insurance AETNA [facility] MEDICAID Care Teams Transmission Calibration Engineer Relationship Specialty Start Date End Date Messi Mejia MD [address] [place] [address] [facility] - General 10/29/20
[2024-11-28] MEDS: 0.9 % SODIUM CHLORIDE 50 ML 10 ML IV (13:08)
[2024-11-28] MEDS: IRON SUCROSE COMPLEX 200 MG in 0.9 % SODIUM CHLORIDE 100 ML 220 MG IV (13:08)
[2024-11-28 13:12] VITALS: BP 117/75; PULSE 62; RESP 18; TEMP 36.9; O2SAT 95
[2024-11-28] MEDS: SODIUM CHLORIDE 0.9% 10ML FLUSH SYRINGE 10 ML IV (13:29)
[2024-11-28 13:48] VITALS: BP 112/78; PULSE 62; RESP 18; TEMP 36.9; O2SAT 98
== END 2024-11-28 23:59 | disposition home or self-care (01) ==
LOC: INF 12:58
PROVIDERS: PCP Nurse Practitioner Family; Visit Provider Internal Medicine Medical Oncology
DX: D50.8 Other iron deficiency anemias (principal); K59.89 Other specified functional intestinal disorders
CPT/HCPCS: 96365; J1756

== ENCOUNTER 2024-12-05 12:35 | Outpatient (CLI) | payer OTHER, SELFPAY ==
--- OUTSIDE RECORDS SUMMARY | 2024-02-26 11:30 | XMS_ITS ---
Author Organization [facility] Address [address] [place] [address] Care Team Providers Care Professor Of German Name Role Phone Messi Mejia Primary Care Provider Perri Alejo [phone] REASON FOR VISIT 3 Week F/U Encounters Encounter Location Date Provider Diagnosis [facility] [address] [place], [place] [address] 02/26/2024 Perri Alejo Plan Of Treatment No Information Progress Notes * Gisel STAHL FDOB:1980 (44 yo F)Acc No.[id number]:02/26/2024 Progress Notes Patient: Gisel YOUNGBLOOD Provider: Sy Alejo APRN :1980 A ge:43 Y S ex:Female Date:02/26/2024 Address:[address] [id number] Pcp:Messi Mejia Subjective: * Chief Complaints: * 1 . 3 Week F/U. * Medical History: Objective: * Vitals: Assessment: Plan: * Treatment: * * Electronic signature of Teresita Alejo APRN on 12/05/2024 at 12:37 PM EDT Sign off status: Pending * Provider: Sy Alejo APRN Date: 0 02/26/2024 Generated for Rafa acosta/Steph/Terellitting on: 0 12/05/2024 12:37 PM EDT
--- OUTSIDE RECORDS SUMMARY | 2024-09-20 17:30 | XMS_ITS ---
Author Organization [facility] Address [address] [place] [address] Care Team Providers Care Breeder Service Technician Name Role Phone Messi Mejia Primary Care Provider Perri Alejo Unavailable [phone] Migration, Provider Unavailable Unavailable Allergies Allergen (clinical drug ingredient) Drug/Non Drug Allergy documented on EMR Reaction Allergy Type Onset Date Status escitalopram Lexapro rash Drug Allergy Acti ve Penicillin hives Drug Allergy Active REASON FOR VISIT [facility] To [facility] Conversion Encounter Medications Medication SIG (Take, Route, Frequency, Duration) Notes Start Date End Date Status Pataday 0.2 % 1 gtt in each affected eye once a day for 10 day(s) prn Active ZyrTEC Allergy 10 MG 1 tab(s) orally once a day for 30 days prn Active Meclizine HCl 25 MG 1 tab(s) orally 3 times a day for 14 days 01/22/2024 Active valACYclovir HCl 1 GM 1 tab(s) orally every 12 hours for 7 days prn 10/23/2023 Active Flonase Allergy Relief 50 MCG/ACT 2 spray(s) intranasally once a day prn for 30 day(s) 05/01/2018 Active B-12 1000 MCG 1 tab(s) orally once a day Active Omeprazole 40 MG 1 cap(s) orally once a day for 30 day(s) twice a day Active WILNER D 60 MG 1 TAB BID for 30 DAYS prn *Please review for potential replacement for e-prescription and drug interaction check* Active Methocarbamol 500 MG as directed orally every 8 hours for 5 days 05/13/2024 Active predniSONE 20 MG 2 tabs orally once a day for 3 days 05/13/2024 Active Encounters Encounter Location Date Provider Diagnosis [facility] [address] [place] [address] 09/20/2024 Provider Migration Muscle pain M79.10 Assessments Encounter Date Diagnosis (ICD Code) Assessment Notes Treatment Notes Treatment Clinical Notes Section Notes 09/20/2024 Muscle pain (ICD-10 - M79.10) Plan Of Treatment Medication Medication Name Sig Start Date Stop Date Notes Methocarbamol 500 MG as directed orally every 8 hours for 5 days 05/13/2024 predniSONE 20 MG 2 tabs orally once a day for 3 days 05/13 Progress Notes * Gisel STAHL FDOB:1980 (44 yo F)Acc No.[id number]:09/20/2024 Patient: Gisel YOUNGBLOOD Provider: Sydnie Preston :1980 A ge:44 Y S ex:Female Date:09/20/2024 Address:[address] [place] [address] [id number] Pcp:Messi Mejia Subjective: * Chief Complaints: * 1 . [facility] Conversion Encounter. * Medical History: * Medications: T aking B-12 1000 MCG Tablet 1 tab(s) orally once a day , Taking WILNER D 60 MG 1 TAB BID , Notes to Pharmacist: prn *Please review for potential replacement for e-prescription and drug interaction check*, Taking Omeprazole 40 MG Capsule Delayed Release 1 cap(s) orally once a day , Notes to Pharmacist: twice a day, Taking ZyrTEC Allergy 10 MG Tablet 1 tab(s) orally once a day , Notes to Pharmacist: prn, Taking Pataday 0.2 % Solution 1 gtt in each affected eye once a day , Notes to Pharmacist: prn, Taking Flonase Allergy Relief 50 MCG/ACT Suspension 2 spray(s) intranasally once a day prn , Taking valACYclovir HCl 1 GM Tablet 1 tab(s) orally every 12 hours , Notes to Pharmacist: prn, Taking Meclizine HCl 25 MG Tablet 1 tab(s) orally 3 times a day * Allergies: P enicillin: hives, Lexapro: rash. Objective: * Vitals: Assessment: * Assessment: 1. M ellie pain - M79.10 (Primary) Plan: * Treatment: * * Electronic signature of Prov ider Migration on 12/05/2024 at 12:37 PM EDT Sign off status: Pending * Provider: Sydnie cunha Migration Date: 0 09/20/2024 Generated for Rafa acosta/Steph/Gaysmitting on: 0 12/05/2024 12:37 PM EDT
--- OUTSIDE RECORDS SUMMARY | 2024-12-05 12:37 | XMS_ITS | Patient Health Record ---
Author Organization [facility] Address [address] [facility] [address] [place] [address] Care Team Providers Care Processor Grain Name Role Phone Messi Mejia Primary Care Provider Perri Alejo Unavailable [phone] Mima Biggs Unavailable [phone] Migration, Provider Unavailable Unavailable Allergies Allergen (clinical drug ingredient) Drug/Non Drug Allergy documented on EMR Reaction Allergy Type Onset Date Status escitalopram Lexapro rash Drug Allergy Acti ve Penicillin hives Drug Allergy Active Results Component Value Reference Range Notes Holter Monitor, 48 hour Reviewed date:02/01/2024 03:16:14 PM Interpretation: Performing Lab: Notes/Report: Rapid Strep Reviewed date:02/06/2024 12:34:35 PM Interpretation:Negative Performing Lab: Notes/Report: Negative Rapid Covid Antigen Reviewed date:02/06/2024 01:12:28 PM Interpretation:Negative Performing Lab: Notes/Report: Negative M-Complete Blood Count Auto Diff Reviewed date:01/22/2024 [...] 0.1 0.0-0.4 K/mm3 BA# 0.0 0-0.2 K/mm3 M-Thyroid Stimulating Hormon e Reviewed date:01/22/2024 02:39:28 PM Interpretation: Performing Lab: Notes/Report: TSH 1.99 0.465-4.68 uIU/mL H-FETIBC Reviewed date:01/22/2024 02:39:28 PM Interpretation: Performing Lab: Notes/Report: FE 32 37-170 ug/dL DTIBC 443 265-497 ug/dL IRONSAT 7.06559 15-55 % H-VITB12 Reviewed date:01/22/2024 02:39:28 PM Interpretation: Performing Lab: Notes/Report: VITB12 238 239-931 pg/mL MRI : Head, With and Without Contrast Reviewed date:02/22/2024 02:41:32 PM Interpretation: Performing Lab: Notes/Report: Echocardiogram - Bubble Stud y Reviewed date:02/05/2024 03:00:39 PM Interpretation: Performing Lab: Notes/Report: M-Comprehensive Metabolic Pa yuly Reviewed date:01/22/2024 02:39:28 [...] AGRATIO 1.3 1.1-1.8 ALP 67 38-126 U/L Medications Medication SIG (Take, Route, Frequency, Duration) [...] Problem Status W/U Status Risk Notes Problem 06155608082606 Morbid (severe) obesity due to excess calories (E66.01) Active confirmed Problem 129991451 Other headache syndrome (G44.89) Active confirmed Problem Essential hypertension (96547745) Essential (primary) hypertension (I10) Active confirmed Problem Ataxia (19060111) Ataxia, unspecified (R27.0) Active confirmed Problem Syncope and collapse (468216972) Syncope and collapse (R55) Active confirmed Problem 97546218 Hypothyroid (E03.9) Active confirmed Problem 65488444 Paresthesia (R20.2) Active confirmed Problem 77114106 Anxiety (F41.9) Active confirmed Problem Sore throat (751530469) Sore throat (J02.9) Active confirmed Problem 285567641 GERD without esophagitis (K21.9) Active confirmed Problem 465634471 BMI 31.0-31.9,adult (Z68.31) Active confirmed Problem 64252951 Murmur (R01.1) Active confirmed Problem 166972418 Obesity (BMI 30-39.9) (E66.9) Active confirmed Problem 85695545 Other iron deficiency anemia (D50.8) Active confirmed Problem 201371186 Abnormal mammogram (R92.8) Active confirmed Problem 264268350 Morbid obesity due to excess calories (E66.01) Active confirmed Problem 561303831 Tension headache (G44.209) Active confirmed Problem 154881736 Hypoglycemia (E16.2) Active confirmed Problem 555048921 Migraine without aura and without status migrainosus, not intractable (G43.009) Active confirmed Problem 25515995 Iron deficiency anemia, unspecified iron deficiency anemia type (D50.9) Active confirmed Problem 935970720 Acute seasonal allergic rhinitis (J30.2) Active confirmed Problem 552715639 Normocytic anemia (D64.9) Active confirmed Problem Respiratory tract congestion (313102877) Congestion of upper airway (J98.8) Active confirmed Problem 691428307 History of bariatric surgery (Z98.84) Active confirmed Problem 725619990 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 Encounters Encounter Location Date Provider Diagnosis [facility] [address] [facility] [address] [place] [address] 01/21/2024 Perri Alejo [facility] [address] [facility] [address] [place] [address] 09/20/2024 Provider Migration Muscle pain M79.10 [facility] [address] [place] [address] 01/22/2024 Perri Alejo Vertigo R42 ; Routine medical exam Z00.00 ; B12 deficiency E53.8 ; Other iron deficiency anemia D50.8 ; GERD without esophagitis K21.9 ; Daily headache R51.9 ; Paresthesia R20.2 ; Dizziness R42 ; H/O gastric sleeve Z90.3 and Obesity (BMI 30-39.9) E66.9 [facility] [address] [place] [address] 01/29/2024 Perri Alejo Other iron deficiency anemia D50.8 ; Dizziness R42 ; H/O gastric sleeve Z90.3 and Obesity (BMI 30-39.9) E66.9 [facility] [address] [place] [address] 02/06/2024 Mima Biggs Sore throat J02.9 ; Viral URI J06.9 and Congestion of upper respiratory tract J39.8 [facility] [address] [place] [address] 05/13/2024 Mima Biggs Muscle pain M79.10 [facility] [address] [address] 01/21/2024 Perri Alejo Elevated blood pressure reading [...] iron infusion to re-evaluate or sooner prn 02/06/2024 Viral URI (ICD-10 - J06.9) Reassurance. [...] plan. 02/06/2024 Sore throat (ICD-10 - J02.9) 05/13/2024 Muscle pain (ICD-10 - M79.10) Discussed [...] 09/20/2024 Muscle pain (ICD-10 - M79.10) 02/06/2024 Congestion of upper respiratory tract (ICD-10 [...] 3. Keep FU for colonoscopy next month 01/22/2024 GERD without esophagitis (ICD-10 - K21.9) Well controlled on PPI 01/21/2024 Other iron deficiency anemia (ICD-10 - D50.8) 01/22/2024 Daily headache (ICD-10 - R51.9) Given her ongoing issues with dizziness with new headaches and parasthesias, needs MRI and Echo with bubble to further evaluate. Will arrange. 01/21/2024 B12 deficiency (ICD-10 - E53.8) 01/22/2024 Paresthesia (ICD-10 - R20.2) 01/22/2024 Dizziness (ICD-10 - R42) 01/22/2024 H/O gastric sleeve (ICD-10 - Z90.3) 01/22/2024 Obesity (BMI 30-39.9) (ICD-10 - E66.9) Recommend weight loss, will continue to monitor Plan Of Treatment Pending Test Test Name Order Date Ultrasound : Carotids 09/04/2006 Rapid Strep 03/07/2007 Rapid Strep 12/06/2010 EKG : In House 04/12/2015 EKG : In House 06/28/2020 EKG : In House 11/07/2010 Cardiolite GXT 11/29/2006 Doppler: Venous, R Lower Extremity 11/02 Doppler: Venous, L Lower Extremity 11/02 Mammogram : Bilateral 08/28/2023 Holter Monitor, 48 hour 12/14/2022 CT Scan : Abdomen and Pelvis with and wi thout contrast 04/10/2018 H-CBC with AUTO DIFF 11/07/2010 H-URINE CULTURE 06/16/2017 H-URINE CULTURE 06/07/2012 H-CMP 06/16/2017 H-CMP 11/07/2010 H-LIPID PANEL 11/07/2010 H-LIPID PANEL 06/16/2017 H-2HR GLUCOSE TOLERANCE 11/07/2010 H-HGBA1C 11/07/2010 H-TSH 11/07/2010 H-TSH 02/01/2011 C-URINE CULTURE 11/28/2013 CT Scan : Chest PE protocol 06/29/2020 Echocardiogram - Bubble Study 01/21/2024 M-Complete Blood Count Auto Diff 023 M-D-Dimer 06/28/2020 M-Comprehensive Metabolic Panel 11/10/19 M-Hemoglobin A1C 11/09/2022 M-Lipid Panel 11/09/2022 M-Thyroid Stimulating Hormone 11/09/2022 M-Vitamin B12 01/21/2024 M-Vitamin B12 10/23/2023 M-Iron and TIBC 10/23/2023 M-Iron and TIBC 01/21/2024 M-HSV 1 and 2-Specific Ab, IgG M-HSV 1 and 2 IgM Abs, Indirect 10/23/19 24 Insurance Providers Payer Name Payer Address Payer Phone Subscriber Number Group Number Insured Name Patient Relationship to Insured Coverage Start Date Coverage End Date [employer] [facility] [address] [address] [place] [address] [id number] Gisel Stahl Self - patient is the [...] Surgery Date(Month/Year) 11/21/2004-11/27/07-03/26/09 bladder scraping 1985 gastric sleeve-[facility] 09/2021 Hospitalization History Reason Date(Month/Year) gastric sleeve 09/2021 syncope Elevated bp and vertigo 06/2016
--- OUTSIDE RECORDS SUMMARY | 2024-12-05 12:38 | XMS_ITS | Clinical Summary ---
Author Organization [facility] Address [address] [place] [address] Care Team Providers Care Care Manager Name Role Phone Messi Mejia MD Primary Care Provider [phone] Family History Medical History Relation Name Comments [...] (2 - Td or Tdap) 08/28/2023 08/27/2013 [id number] Vaccine (3 - 2023- season) 2024 02/04/2021, [...] age to complete this topic Insurance [employer] [facility] MEDICAID Care Teams Care Manager Relationship Specialty Start Date End Date Messi Mejia MD [address] [place] [address] [facility] - General 10/29/20
--- OUTSIDE RECORDS SUMMARY | 2024-12-05 12:38 | XMS_ITS | Data Portability ---
Author Organization [place] - [facility] [place] & SONAL Garcia ADMIN Address [address] [place] [address] Care Team Providers Care Chiropractic Teacher Name Role Phone RUDOLPH BYERS Primary Care Provider [phone] Assessment Encounter Date Assessment Date Assessment LastModified by Organization Details LastModified Time 04/11/2022 04/11/2022 Advised qid intake 50% protein 2734-3842 calories/dy less than 100 carbs/dy Long discussion [...] 15:55:08 CMP, serum or plasma 2021 022 [email or web address] Not available 3 16:46:59 HbA1c (hemoglobin A1c), blood 2021 022 [email or web address] Not available 3 16:46:59 lipid panel, blood 2021 022 [email or web address] Not available 16:46:59 iron + TIBC + ferritin, serum 2021 022 [email or web address] Not available 3 16:47:00 folate, serum 2021 022 [email or web address] Not available 16:47:00 mma (methylmalo harvey acid), serum 2021 022 [email or web address] Not available 16:47:00 vitamin B1 (thiamine), blood 2021 022 [email or web address] Not available 16:47:00 vitamin D, 25-hydroxy, total, serum 2021 022 [email or web address] Not available 16:47:00 vitamin E, serum 2021 022 [email or web address] Not available 16:47:00 vitamin A (retinol), serum 2021 022 [email or web address] Not available 16:47:01 Referral None recorded. Procedures None recorded. Surgeries None recorded. Imaging electrocard iogram 2022 023 [facility], [address], [place], [address], 13:01:52 RF, upper gastrointes tinal tract, w/ contrast PO 2022 023 [email or web address] [facility] [address], [place], [address], 3 15:11:55 Medication Orders Carafate 100 mg/mL oral suspension [address], [address] [place] [address], [address], [place], [address], 3 13:51:44 amitriptyli ne 25 mg tablet [address], [address] [place] [address], [address], [place], [address], 3 13:51:38 famotidine 20 mg tablet 2021 022 [facility], [address], [address], [place], [address], 13:52:58 Patient TargetsNo targets recorded. Patient InstructionsNo instructions recorded. Reason for Referral None Reported. Results Created Date Observation Date Name Description Value Unit Range Abnormal Flag Note LastModifiedBy Organization Detail LastModifiedTime 07/28/1907/28/2022 CBC AUTO W DIFF WBC 4.8 K/uL 4.0-10 .5 Not Available [facility] [address], [place], [address], 07/28/2022 08:59:18 07/28/19 23 07/28/2022 CBC AUTO W DIFF RBC 4.5 M/mm3 4.2-6. 4 Not Available [facility] [address] , [place], [address], 07/28/2022 08:59:18 07/28/19 23 07/28/2022 CBC AUTO W DIFF HGB 12.4 gm/dL 12.5-1 6.0 low Not Available [facility] [address] , [place], [address], 07/28/2022 08:59:18 07/28/19 23 07/28/2022 CBC AUTO W DIFF HCT 39.5 % 37.0-4 7.0 Not Available [facility] [address] , [place], [address], 07/28/2022 08:59:18 07/28/19 23 07/28/2022 CBC AUTO W DIFF MCV 87.8 fL 78-100 Not Available [facility] [address] , [place], [address], 07/28/2022 08:59:18 07/28/19 23 07/28/2022 CBC AUTO W DIFF MCH 27.6 pg 27-31 Not Available [facility] [address] , [place], [address], 07/28/2022 08:59:18 07/28/19 23 07/28/2022 CBC AUTO W DIFF MCHC 31.4 g/dL 32-36 low Not Available [facility] [address], [place], [address], 07/28/2022 08:59:18 07/28/19 23 07/28/2022 CBC AUTO W DIFF RDW 12.9 % 11.5-1 4.0 Not Available [facility] [address], [place], [address], 07/28/2022 08:59:18 07/28/19 23 07/28/2022 CBC AUTO W DIFF platelet count 217 K/uL 150-45 0 Not Available [facility] [address], [place], [address], 07/28/2022 08:59:18 07/28/19 23 07/28/2022 CBC AUTO W DIFF neutrophil% 50.4 % 43-65 Not Available [facility] ([facility]) [address], [place], [address], 07/28/2022 08:59:18 07/28/19 23 07/28/2022 CBC AUTO W DIFF lymphocyte% 33.5 % 20.5-4 5.5 Not Available [facility] [address] , [place], [address], 07/28/2022 08:59:18 07/28/19 23 07/28/2022 CBC AUTO W DIFF monocyte% 6.5 % 5.5-11 .7 Not Available [facility] [address] [place], [address], 07/28/2022 08:59:18 07/28/19 23 07/28/2022 CBC AUTO W DIFF eosinophil% 9.4 % 0.9-2. 9 high Not Available [facility] [address], [place], [address], 07/28/2022 08:59:18 07/28/19 23 07/28/2022 CBC AUTO W DIFF basophil% 0.2 % 0.2-1. 0 Not Available [facility] [address] [facility], [place], [address], 07/28/2022 08:59:18 07/28/19 23 07/28/2022 CBC AUTO W DIFF neutrophil# 2.4 K/uL 2.2-4. 8 Not Available [facility] [address] [facility], [place], [address], 07/28/2022 08:59:18 07/28/19 23 07/28/2022 CBC AUTO W DIFF lymphocyte# 1.6 cell/ mcL 1.3-2. 9 Not Available [facility] [address] [facility], [place], [address], 07/28/2022 08:59:18 07/28/19 23 07/28/2022 CBC AUTO W DIFF monocyte# 0.3 cell/ mcL 0.3-0. 8 Not Available [facility] [address] [facility], [place], [address], 07/28/2022 08:59:18 07/28/19 23 07/28/2022 CBC AUTO W DIFF eosinophil# 0.5 cell/ mcL 0-0.2 high Not Available [facility] [address] [facility], [place], [address], 07/28/2022 08:59:18 07/28/19 23 07/28/2022 CBC AUTO W DIFF basophil# 0.0 cell/ mcL 0.0-1. 0 Not Available [facility] [address], [place], [address], 07/28/2022 08:59:18 07/28/19 23 07/28/2022 CBC AUTO W DIFF manual differential NO Not Available [facility] ([facility]) [address], [place], [address], 07/28/2022 08:59:18 07/28/19 23 07/28/2022 HEMOG LOBIN A1C A1C 5.4 % 3.8-5. 6 GLYCO SYLAT ED HEMOG LOBIN (A1C) EXPEC FAIVOLA RANGE S: <6.5 NON-D IABET IC 6.5-7 .5 EXCEL LENT 7.5-8 .5 GOOD >8.5 POOR Not Available [facility] [address], [place], [address], 07/28/2022 09:50:55 07/28/19 23 07/28/2022 COMP METAB OLIC PANEL sodium 139 mmol/ L 136-14 5 Not Available [facility] [address], [place], [address], 07/28/2022 09:50:56 07/28/19 23 07/28/2022 COMP METAB OLIC PANEL potassium 4.0 mmol/ L 3.6-5. 0 Not Available [facility] [address], [place], [address], 07/28/2022 09:50:56 07/28/19 23 07/28/2022 COMP METAB OLIC PANEL chloride 103 mmol/ L 98-107 Not Available [facility] [address] , [place], [address], 07/28/2022 09:50:56 07/28/19 23 07/28/2022 COMP METAB OLIC PANEL carbon dioxide 27.2 mmol/ L 21.0-3 2.0 Not Available [facility] [address], [place], [address], 07/28/2022 09:50:56 07/28/19 23 07/28/2022 COMP METAB OLIC PANEL anion gap 12.8 Not Available [facility] ([facility]) [address], [place], [address], 07/28/2022 09:50:56 07/28/19 23 07/28/2022 COMP METAB OLIC PANEL glucose 81 mg/dL 70-120 Not Available [facility] [address] , [place], [address], 07/28/2022 09:50:56 07/28/19 23 07/28/2022 COMP METAB OLIC PANEL BUN 13 mg/dL 7-18 Not Available [facility] [address] , [place], [address], 07/28/2022 09:50:56 07/28/19 23 07/28/2022 COMP METAB OLIC PANEL creatinine 0.8 mg/dL 0.6-1. 3 Not Available [facility] [address] , [place], [address], 07/28/2022 09:50:56 07/28/19 23 07/28/2022 COMP METAB OLIC PANEL glomerular filtration rate >60 mlper min 60- Not Available [facility] [address] , [place], [address], 07/28/2022 09:50:56 07/28/19 23 07/28/2022 COMP METAB OLIC PANEL total protein 7.5 g/dL 6.4-8. 2 Not Available [facility] [address] , [place], [address], 07/28/2022 09:50:56 07/28/19 23 07/28/2022 COMP METAB OLIC PANEL albumin 4.0 g/dL 3.4-5. 0 Not Available [facility] [address], [place], [address], 07/28/2022 09:50:56 07/28/19 23 07/28/2022 COMP METAB OLIC PANEL globulin 3.5 Not Available [facility] ([facility]) [address], [place], [address], 07/28/2022 09:50:56 07/28/19 23 07/28/2022 COMP METAB OLIC PANEL alb/glob ratio 1.1 0.7-2 Not Available [facility] ([facility]) [address] , [place], [address], 07/28/2022 09:50:56 07/28/19 23 07/28/2022 COMP METAB OLIC PANEL calcium 9.4 mg/dL 8.5-10 .5 Not Available [facility] [address] , [place], [address], 07/28/2022 09:50:56 07/28/19 23 07/28/2022 COMP METAB OLIC PANEL bilirubin total 0.60 mg/dL 0.10-1 .00 Not Available [facility] [address] , [place], [address], 07/28/2022 09:50:56 07/28/19 23 07/28/2022 COMP METAB OLIC PANEL AST (SGOT) 18 U/L 0-37 Not Available [facility] ([facility]) [address] , [place], [address], 07/28/2022 09:50:56 07/28/19 23 07/28/2022 COMP METAB OLIC PANEL ALT (SGPT) 18 U/L 0-65 Not Available [facility] ([facility]) [address] , [place], [address], 07/28/2022 09:50:56 07/28/19 23 07/28/2022 COMP METAB OLIC PANEL alk phosphatase 76 U/L 46-116 Not Available [facility] ([facility]) [address] [facility], [place], [address], 07/28/2022 09:50:56 07/28/19 23 07/28/2022 LYNNETTE TIN ferritin, serum 13 NG/mL 3-244 Not Available [facility] ([facility]) [address] [facility], [place], [address], 07/28/2022 09:52:09 07/28/19 23 07/28/2022 FOLIC ACID folate (folic acid), serum 3.5 NG/mL 8.6-58 .9 low *Note : Refer troy iverson New Test Metho d in use. Not Available [facility]) [address] [facility], [place], [address], 07/28/2022 09:52:11 07/28/19 23 07/28/2022 IRON STUDY (IRON /TIBC /%SAT ) iron 94 mcg/m L 40-180 Not Available [facility]) [address] [facility], [place], [address], 07/28/2022 10:22:47 07/28/19 23 07/28/2022 IRON STUDY (IRON /TIBC /%SAT ) TIBC 361 mcg/d L 250-45 0 Not Available [facility] [address] [facility], [place], [address], 07/28/2022 10:22:47 07/28/19 23 07/28/2022 IRON STUDY (IRON /TIBC /%SAT ) %sat 26 15-55 Not Available [facility] [address] [facility], [place], [address], 07/28/2022 10:22:47 07/28/19 23 07/28/2022 VITAM IN D, 25-HY DROXY vitamin D, 25-hydroxy 18.1 NG/mL 30.0-1 00.0 low Not Available [facility] [address] [place], [address], 07/28/2022 10:47:12 07/28/19 23 07/28/2022 LIPID PANEL triglyceride 49 mg/dL 30-200 Not Available [facility] ([facility]) [address] [place], [address], 07/28/2022 11:58:34 07/28/19 23 07/28/2022 LIPID PANEL cholesterol 198 mg/dL 0-200 Not Available [facility] ([facility]) [address] [place], [address], 07/28/2022 11:58:34 07/28/19 23 07/28/2022 LIPID PANEL HDL 52 mg/dL 40-104 Not Available [facility] [address] [place], [address], 07/28/2022 11:58:34 07/28/19 23 07/28/2022 LIPID PANEL LDL calculated 136 mg/dL 0-130 high Not Available [facility] ([facility]) [address] [place], [address], 07/28/2022 11:58:34 07/28/19 23 08/02/2022 VITAM IN B1 ISAAC INE vitamin B1 (thiamine), plasma 93.1 nmol/ L 66.5-2 00.0 Speci men Comme nt: Test( s) 57614 8-Vit . B1, Whole Blood Speci men Comme nt: was nica malcolm and its perfo rmanc e lauren mendez risti cs Speci men Comme nt: deter mined by [employer]. It has not been spencer ared or appro carlyn Speci men Comme nt: by the Food and Drug Admin istra tion. Perfo rmed at: [facility] [place] [address] [place] [id number] Lab Direc tor: Karina esparza MD, Phone : [phone] Not Available [facility] [address] , [place], [address], 08/02/2022 15:12:54 07/28/19 23 08/02/2022 VITAM IN E vitamin E(alpha tocopherol) 10.3 mg/L 7.0-25 .1 Not Available [facility] [address], [place], [address], 08/02/2022 20:10:01 07/28/19 23 08/02/2022 VITAM IN [...] ient. Perfo rmed at: [facility] [address] [address] Lab Dire tor: Karina esaprza MD, Phone : [phone] Not Available [facility] [address] , [place], [address], 08/02/2022 20:10:01 07/28/19 23 08/03/2022 VITAM IN [...] e lauren cteri stics deter mined by [employer] . It has not been clear ed or appro carlyn by the Food and Drug Admin istra tion. Perfo rmed at: [facility] [place] [address] [place] [id number] Lab Direc tor: Karina esparza MD, Phone : [phone] Not Available [facility] [address] [facility], [place], [address], 08/03/2022 06:12:39 07/28/19 23 08/09/2022 METHY LMALO HARVEY ACID QUANT methylmaloni c acid, serum 777 nmol/ L 0-378 high Speci men Comme nt: Test( s) 11494 7-Met hylma lonic Acid, Serum Speci men Comme nt: was devel oped and its perfo rmanc e lauren cte risti cs Speci men Comme nt: deter mined by [employer]. It has not been spencer ared or appro carlyn Speci men Comme nt: by the Food and Drug Admin istra tion. Perfo rmed at: [facility] [address] [address] Lab Direc tor: Karina esparza MD, Phone : [phone] Not Available [facility] [address] [facility], [place], [address], 08/09/2022 13:10:51 07/28/19 23 07/28/2022 ugi with KUB [facility] Hospit [facility] [address] [place] [address] Phone: Fax: Name: MALAIKA SOUTH Exam Date: 023 : [birth year] Age 42 Gender : F Access ion: [id number] Physic shona: SIZEMO RE, EDWARD Facili ty: [facility] Facili ty HSV: Outpat ient Exam: [...] [facility] Legall y authen ticate d by KIERA MCMULLEN 07-28 09:05: 37 CC'ed Logic: Orderi ng Provid er: SIZEMO AMADA FREIRE Attend ing Provid er: SIZEMO RE TED Admitt ing Provid er: SIZEMO RE EDWARD [email or web address] [facility] [address], [place], [address], 07/28/2022 11:59:48 01/05/2012/14/2022 cardi ac clear ance* No observ ation record ed. [email or web address] [facility] (Med Record) [address], [place], [address], 04/20/2023 09:09:03 01/05/20 23 12/21/2022 cardi ac clear ance* No observ ation record ed. [email or web address] [facility] [address], [place], [address], 04/20/2023 09:08:08 01/23/20 23 01/23/2023 elect rocar diogr am No observ ation record ed. [facility] [address], [place], [address], 01/23/2023 13:04:23 01/24/20 23 01/22/2023 elect rocar diogr am No observ ation record ed. [facility] [address], [place], [address], 01/23/2023 13:01:52 08/15/19 24 07/28/2022 ugi with KUB [facility] [address] [place] [address] Phone: Fax: Name: MALAIKA SOUTH Exam Date: 023 : [birth year] Age 42 Gender : F Access ion: [id number] Physic shona: SIZEMO RE, EDWARD Facili ty: [facility] Facili ty HSV: Outpat ient Exam: [...] Thank you for referr MALAIKA Yan to [facility]. Legall y authen ticate d by POPE MICAELA Wallace 2023-0 08-15 10:33: 42 CC'ed Logic: Orderi ng Provid er: RUBEN FREIRE Attend ing Provid er: CLAUDIOMO AMADA FREIRE Admitt ing Provid er: SIZEMO RE TED [email or web address] [facility] [address] [facility], [place], [address], 08/15/2023 10:55:04 Result Notes None recorded. Problems Name Problem SNOMED Code Status Onset Date Resolution Date Notes Provider Name and Address Organization Details Recorded Time Laparoscopic sleeve gastrectomy Active 2021 Ted Woodard DNP, PROSTHETIC AIDE, SKI PATROL DIRECTOR-C [address] [facility], [place], [address] , [facility] - NT [facility] & [place] 2 09:07:34 Morbid obesity 017916231 Active 2021 Ted Woodard DNP, PROSTHETIC AIDE, SKI PATROL DIRECTOR-C [address] [facility], [place], [address] , [facility] - NT [facility] & [place] 2 09:08:10 Dyslipidemia 854276764 Active 2021 Ted Woodard DNP, EMRE, SKI PATROL DIRECTOR-C [address], [place], [place], [address] [place] [address] , [place] - [facility] - [place] & [place] 2 09:08:17 Elevated blood-pressur e reading without diagnosis of hypertension 063702638 Active 2021 Ted Woodard DNP, EMRE, SKI PATROL DIRECTOR-C [address], [place], [place], [address] [place] [address] , [place] - [facility] - [place] & [place] 2 14:50:06 Intentional weight loss 771064071 Active 2021 Ted Woodard DNP, EMRE, SKI PATROL DIRECTOR-C [address], [place], [address] [place] [address] , [place] - [facility] - [place] & [place] 2 14:52:58 Heartburn 04049579 Active 2021 Ted Woodard DNP, PROSTHETIC AIDE, SKI PATROL DIRECTOR-C [address], [place], [address] [place] [address] , [place] - [facility] - [place] & [place] 2 15:12:32 Increased belching 01355433 Active 2021 Ted Woodard DNP, PROSTHETIC AIDE, SKI PATROL DIRECTOR-C [address], [place], [address] [place] [address] , [place] - [facility] - [place] & [place] 2 15:12:40 Obesity 100855455 Active 2022 Ted Woodard DNP, PROSTHETIC AIDE, SKI PATROL DIRECTOR-C [address], [place], [address] [place] [address] , [place] - [facility] - [place] & [place] 3 15:28:14 Epigastric pain 84779050 Active 2022 Ted Woodard DNP, PROSTHETIC AIDE, SKI PATROL DIRECTOR-C [address], [place], [address] [place] [address] , [place] - [facility] - [place] & [place] 3 15:45:12 Transient altered mental status 468408905 Active 2022 Angel Luis Cui MD [address] [facility], [place], [address] , [facility] & [place] 3 14:09:18 Problem Notes Documentation Provider Name and Address Organization Details Recorded Time Dietitian Note : [facility] Nutrition Consultation/Follow-up Progress Note Date: 03/29/2022 Patient Name: Malaika South : 1980 Reason for Consult: 6 month follow up Date of Surgery: September 2021 Surgery Type: sleeve MD Tovar Weight: 280# Total Weight Change: -77# Goal Weight Achieved? no Current Weight: 203# Current BMR: 1370 kcals Goal Weight: 147# N/V/C/D: denied Other Symptoms: acid reflux Pertinent Meds/Labs: MVI patch, omeprazole Physical activity: was walking 2 mile per day up until a month ago because her daughter had surgery Food records: pen and paper Estimated Current Intake Calories: 800 kcal/d Protein: 50 g/d Fluid: 64 oz/d Foods: chocolate rice cakes w/ peanut butter, vegetables w/ ranch, tuna Form: [employer], peanut butter, seafood Source: water, crystal light Additional Notes/Concerns: has been experiencing reflux especially at night typically snacks throughout the day Recommendations Protein: 70g / day Calories: 900-1000 / day 1. Diversify food choices - provides ideas and sample menu 2. Start meeting protein intake goal - discussed options for foods and supplements 3. Include resistance exercise - discussed exercise ideas Barbie Woodard, DNP, PROSTHETIC AIDE, SKI PATROL DIRECTOR-C [address] [facility], [place], [address], [facility] & [place] 05/25/2022 10:17:56 Procedures Surgical History Date Name Laterality Status Provider Name and Address Organization Details Recorded Time 02/26/20 22 completed Rosina Baron [place] [facility] & [place] 01/22/2023 13:42:29 section [facility] & [place] 04/11/2022 14:47:19 extraction of wisdom tooth completed Cedric PRUITT [facility] & [place] 04/11/2022 14:47:24 Tubal Ligation completed Cedric PRUITT [facility] & [place] 04/11/2022 14:47:39 laparoscopic sleeve gastrectomy completed Cedric PRUITT [facility] & [place] 04/11/2022 14:47:47 Imaging Results None recorded. Procedure Notes None recorded. Medical Equipment None Reported. Allergies Allergen ID Allergen Name Allergen Category Reaction Reaction Severity Criticality Documentation Date Start Date Code Code System Note Provider Name and Address Organization Details Recorded Time 53593 Product containin g penicilli n (product) medicatio n Not available Not available Not available 04/11/2022 65360 8001 SNOMED Cedric Soliz-LYDIA Ko [facility] & [place] 2 14:42:41 97126 Lexapro medicatio n rash moderate Not available 04/11/2022 95479 1 RxNorm Cedric Sharp-Bec LYDIA quintana [facility] & [place] 2 14:42:50 08972 penicilli n G Not available hives itching moderate moderate Not available 01/22/2023 7980 RxNorm Rosina salcido, LYDIA Craft SENTHIL [facility] & [place] 3 13:42:12 Medications Name Sig Start Date [...] Updated DateTime 3 160.02 cm 32.8 kg/m2 46124.5 9 g 97.5 [degF] 63 /min 151 mm[Hg] 94 mm[Hg] Justyna Spivey [facility] & [place] 3 15:24:34 Date Recorded Body height Body mass index (BMI) Body weight Oxygen saturation Oxygen saturation in Arterial blood by Pulse oximetry Heart rate Systolic blood pressure Diastolic blood pressure Provider Name and Address Organization Details Last Updated DateTime 3 160.02 cm 32.6 kg/m2 06700 g 100 % 100 % 71 /min 124 mm[Hg] 86 mm[Hg] Rosina Baron [facility] & [place] 3 13:55:36 Date Recorded Body temperature Body height Body mass index (BMI) Body weight Heart rate Systolic blood pressure Diastolic blood pressure Provider Name and Address Organization Details Last Updated DateTime 2 98.2 [degF] 160.02 cm 36.1 kg/m2 73404.7 7 g 76 /min 138 mm[Hg] 94 mm[Hg] Cedricdorina catam [facility] & [place] 2 14:46:49 Social History Question Answer Notes LastModified by [employer] Details LastModified Time Tobacco Smoking Status Never Smoker Cedricdorina Landaverde [facility] & [place] 04/11/2022 14:44:28 Do You Have An Advance [...] Functional Status Question Answer Note LastModified by [employer] Details LastModified Time Do you use any [...] anxious, or unable to sleep at night)? [id number] Information not available 01/22/2023 Family History Relationship Description Onset Age of this Age Resolved Age Notes LastModified by Organization Details LastModified Time Father No current problems or disability Not available 01/22 13:54:33 Mother No current problems or disability Not available 01/22 13:54:33 Medical History Condition Response Kidney Stones Y Depression Y Hypothyroidism Y Vision or Eye Problems Y Infertility Y Bladder or Kidney Problems Y Allergies/Hayfever Y Thyroid Problems Y Reflux/GERD Y Hypertension Y Chicken [...] SNOMED-CT Code Diagnosis ICD10 Code Diagnosis Note 88891 Ted Woodard, DNP, PROSTHETIC AIDE, SKI PATROL DIRECTOR-C [facility] [address] [address] [place] [address] 04/11/2022 14:28:56 04/11/2022 15:44:49 Dyslipidemia 472626399 E78.5 Morbid obesity 846879144 E66.01 History of bariatric surgical procedure 301335511 Z98.84 . History of gastrectomy 180262175 Z90.3 Patient is status post bariatric surgery and at increased risk for vitamin deficienci es and malnutriti on. Bariatric vitamin panel ordered today. Patient will be contacted to correct any vitamin deficienci es. Elevated blood-pressure reading without diagnosis of hypertension 309650352 R03.0 Intentiona l weight loss 560339488 R63.8 Heartburn [id number] R12 GERD-patie nt was reassured. We discussed [...] also add Carafate as needed. Increased belching 57890 005 R14.2 [id number] Ted Woodard, DNP, PROSTHETIC AIDE, SKI PATROL DIRECTOR-C [facility] [address] [facility] [address] [place] [address] 07/21/2022 15:11:20 07/21/2022 15:47:32 History of bariatric surgical procedure [id number] Z98.84 Advised qid intake 50% protein 1219-9805 calories/d y less than 100 carbs/dy Long [...] with any deficienci es. History of gastrectomy 238362738 Z90.3 Patient is status post bariatric surgery and at increased risk for vitamin deficienci es and malnutriti on. Bariatric vitamin panel ordered today. Patient will be contacted to correct any vitamin deficienci es. Intentiona l weight loss 257336687 R63.8 Elevated blood-pressure reading without diagnosis of hypertension 218955574 R03.0 Dyslipidemia 088120077 E 78.5 Obesity 910926764 E66.9 Epigastric pain 82261351 R10.13 may try tylenol as needed for pain as well as heating pad. will proceed with UGI. Possible CT scan of abdomen. [id number] Angel Luis Cui MD [facility] [address] [place] [address] 01/22/2023 13:25:38 01/22/2023 14:59:38 Transient altered mental status [id number] R41.82 I do not think this is [...] Member ID Guarantor Name 01/19/2023 1 [employer] [facility] (MEDICAID HMO) Malaika South [id number] Malaika [place] Notes Date Note Type Note [...] 49.9Basal Metabolic Rate =1370 kilo calories Ted Woodard DNP, APRN, SKI PATROL DIRECTOR-C [address] , [place], [address], [facility] & [place] 04/11/2022 15:14:09 07/21/2022 text/html Patient presents the [...] eat fast. She has not tried any mbnd-eod-fjqatyt medications or treatments. Currently rates mid epigastric abdominal pain at 3/10.Today's InBody reveals a skeletal muscle mass = 54.0 lb,body fat mass = 82.9 lb,BMI = 32.8Percent body fat = 44.8Basal Metabolic Rate = 1370 kilo calories Ted Woodard DNP, EMRE, SKI PATROL DIRECTOR-C [address], [place], [address], [facility] & [place] 07/21/2022 15:48:08 01/22/2023 text/html 42 F here For evaluation of altered mentationRefer: KEKE Jones, Edvin She reports altered mentation when she was walking and did not know how she got from point A to B .She has had 4 episodes Over the past month or so. Associated with diaphoresis. she is noticed blood sugars have been in the 50s' during these spells. she is had cardiac evaluation via PCP including Holter and echo as noted belowBernadette had gastric sleeve 10/2021, lost 140lbsNo prior CAD/CVA Holter 12/15/2022: Baseline heart rate was sinus heart rate ranging from 40 to 165 beats per minute average heart rate of 71 beats per minute longest pause was 2.1 seconds. No other arrhythmia noted. echo 12/29/2022: Normal EF no valvular abnormalitiesEKG 01/22/2023 NSR 76 DC interval 190 QRS 80 QTC 420 Angel Luis Cui MD [address], [place], [address], [facility] - [place] - [place] & [place] 01/22/2023 14:47:01 OBGyn Episode No OBEpisode recorded.
[2024-12-05] MEDS: SODIUM CHLORIDE 0.9% 50ML BAG 50 ML IV (12:45)
[2024-12-05] MEDS: IRON SUCROSE COMPLEX 200 MG in 0.9 % SODIUM CHLORIDE 100 ML 220 MG IV (12:45)
[2024-12-05 12:55] VITALS: BP 123/74; PULSE 65; RESP 18; TEMP 36.8; O2SAT 99
[2024-12-05 13:30] VITALS: BP 102/73; PULSE 65
== END 2024-12-05 13:30 | disposition home or self-care (01) ==
LOC: INF 12:35
PROVIDERS: PCP Nurse Practitioner Family; Visit Provider Internal Medicine Medical Oncology
DX: D50.8 Other iron deficiency anemias (principal); K59.89 Other specified functional intestinal disorders
CPT/HCPCS: 96365; J1756

== ENCOUNTER 2024-12-12 12:36 | Outpatient (CLI) | payer OTHER, SELFPAY ==
--- OUTSIDE RECORDS SUMMARY | 2024-02-26 11:30 | XMS_ITS ---
Author Organization [facility] Address [address] [place] [address] Care Team Providers Care Land Law Examiner Name Role Phone Messi Mejia Primary Care Provider [phone] Perri Alejo [phone] REASON FOR VISIT 3 Week F/U Encounters Encounter Location Date Provider Diagnosis [facility] [address] [place], [place] [address] 02/26/2024 Perri Alejo Plan Of Treatment No Information Progress Notes * Gisel STAHL FDOB:1980 (44 yo F)Acc No.[id number]:02/26/2024 Progress Notes Patient: Gisel YOUNGBLOOD Provider: Sy Alejo APRN :1980 A ge:43 Y S ex:Female Date:02/26/2024 Address:[address] [id number] Pcp:Messi Mejia Subjective: * Chief Complaints: * 1 . 3 Week F/U. * Medical History: Objective: * Vitals: Assessment: Plan: * Treatment: * * Electronic signature of Teresita Alejo APRN on 12/12/2024 at 12:38 PM EDT Sign off status: Pending * Provider: Sy Alejo APRN Date: 0 02/26/2024 Generated for Rafa acosta/Steph/Terellitting on: 0 12/12/2024 12:38 PM EDT
--- OUTSIDE RECORDS SUMMARY | 2024-09-20 17:30 | XMS_ITS ---
Author Organization [facility] Address [address] [place] [address] Care Team Providers Care Presser All Around Name Role Phone Messi Mejia Primary Care Provider Perri Alejo Unavailable [phone] Migration, Provider Unavailable Unavailable Allergies Allergen (clinical drug ingredient) Drug/Non Drug Allergy documented on EMR Reaction Allergy Type Onset Date Status escitalopram Lexapro rash Drug Allergy Acti ve Penicillin hives Drug Allergy Active REASON FOR VISIT [facility] To [facility] Conversion Encounter Medications Medication SIG [...] Active Encounters Encounter Location Date Provider Diagnosis [facility] [address] [place] [address] 09/20/2024 Provider Migration Muscle pain M79.10 Assessments [...] * Gisel STAHL FDOB:1980 (44 yo F)Acc No.[id number]:09/20/2024 Patient: Gisel YOUNGBLOOD Provider: Sydnie Preston :1980 A ge:44 Y S ex:Female Date:09/20/2024 Address:[facility] [id number] Pcp:Messi Mejia Subjective: * [...] Vitals: Assessment: * Assessment: 1. M ellie [facility] - M79.10 (Primary) Plan: * Treatment: * * Electronic signature of Prov vivian Migration on 12/12/2024 at 12:38 PM EDT Sign off status: Pending * Provider: Sydnie cunha Migration Date: 0 09/20/2024 Generated for Rafa acosta/Steph/Terellitting on: 0 12/12/2024 12:38 PM EDT
--- OUTSIDE RECORDS SUMMARY | 2024-12-12 12:38 | XMS_ITS | Clinical Summary ---
Author Organization Healthcare Address [address] [place] [address] Care Team Providers Care Elementary Supervisor Name Role Phone Messi Mejia MD Primary Care Provider [phone] Family History Medical History Relation Name Comments [...] (2 - Td or Tdap) 08/28/2023 08/27/2013 [id number] Vaccine (3 - 2023- season) 2024 02/04/2021, [...] age to complete this topic Insurance [employer] [facility] MEDICAID Care Teams Elementary Supervisor Relationship Specialty Start Date End Date Messi Mejia MD [address] [place] [address] [facility] - General 10/29/20
--- OUTSIDE RECORDS SUMMARY | 2024-12-12 12:38 | XMS_ITS | Patient Health Record ---
Author Organization [facility] Address [address] [facility] [address] [place] [address] Care Team Providers Care Architectural Design Professor Name Role Phone Messi Mejia Primary Care Provider Perri Alejo Unavailable [phone] Mima Biggs Unavailable [phone] Migration, Provider Unavailable Unavailable Allergies Allergen (clinical drug ingredient) Drug/Non Drug Allergy documented on EMR Reaction Allergy Type Onset Date Status escitalopram Lexapro rash Drug Allergy Acti ve Penicillin hives Drug Allergy Active Results Component Value Reference Range Notes Rapid Covid Antigen Reviewed date:02/06/2024 01:12:28 PM Interpretation:Negative Performing Lab: Notes/Report: Negative Rapid Strep Reviewed date:02/06/2024 12:34:35 PM Interpretation:Negative Performing Lab: Notes/Report: Negative Holter Monitor, 48 hour Reviewed date:02/01/2024 03:16:14 PM Interpretation: Performing Lab: Notes/Report: M-Complete Blood [...] 37-170 ug/dL DTIBC 443 265-497 ug/dL IRONSAT 7.91571 15-55 % H-VITB12 Reviewed date:01/22/2024 02:39:28 PM Interpretation: Performing Lab: Notes/Report: VITB12 238 239-931 pg/mL MRI : Head, With and Without Contrast Reviewed date:02/22/2024 02:41:32 PM Interpretation: Performing Lab: Notes/Report: Echocardiogram - Bubble Stud y Reviewed date:02/05/2024 03:00:39 PM Interpretation: Performing Lab: Notes/Report: Medications Medication SIG (Take, Route, Frequency, Duration) Notes Start Date End Date Status B-12 1000 MCG 1 tab(s) orally once a day Active Pataday 0.2 % 1 gtt in each affected eye once a day; Duration: 10 day(s) prn Active ZyrTEC Allergy 10 MG 1 tab(s) orally once a day; Duration: 30 days prn Active Omeprazole 40 MG [...] a day; Duration: 3 days 05/13/2024 Active Meclizine HCl 25 MG 1 tab(s) orally 3 times a day; Duration: 14 days 01/22/2024 Active valACYclovir HCl 1 GM 1 tab(s) orally every 12 hours; Duration: 7 days prn 10/23/2023 Active Flonase Allergy Relief 50 MCG/ACT 2 spray(s) intranasally once a day prn; Duration: 30 day(s) 05/01/2018 Active Immunizations Vaccine Route Administration Date Status Comme nts Adacel (Tdap) Unknown 08/27/2013 Administered FLUZONE 6MO - OLDER Unknown 05/31/2019 Administered Influenza-Fluzone 3+years (NON-MEDICARE) IM Intramuscular 04/12/2015 Administered Problems Problem Type SNOMED Code ICD Code Onset Dates Problem Status W/U Status Risk Notes Problem Morbid obesity (disorder) (200420260) Morbid (severe) obesity due to excess calories (E66.01) Active confirmed Problem Headache disorder (471443361) Other headache syndrome (G44.89) Active confirmed Problem Essential hypertension (88901013) Essential (primary) hypertension (I10) Active confirmed Problem Ataxia (68199781) Ataxia, unspecified (R27.0) Active confirmed Problem Syncope and collapse (224383519) Syncope and collapse (R55) Active confirmed Problem Hypothyroid (74628240) Hypothyroid (E03.9) Active confirmed Problem Paresthesia (89715055) Paresthesia (R20.2) Active confirmed Problem Anxiety (09401937) Anxiety (F41.9) Active confi rmed Problem Sore throat (773353749) Sore throat (J02.9) Active confirmed Problem Gastroesophageal reflux disease (922988552) GERD without esophagitis (K21.9) Active confirmed Problem Body mass index 30.00 to 34.99 (982560646248631) BMI 31.0-31.9,adult (Z68.31) Active confirmed Problem Murmur (909156971) Murmur (R01.1) Active confir med Problem Obesity (814067517) Obesity (BMI 30-39.9) (E66.9) Active confirmed Problem Iron deficiency anemia (37743067) Other iron deficiency anemia (D50.8) Active confirmed Problem Abnormal mammogram (336840738) Abnormal mammogram (R92.8) Active confirmed Problem Morbid obesity (262999858) Morbid obesity due to excess calories (E66.01) Active confirmed Problem Tension headache (914531932) Tension headache (G44.209) Active confirmed Problem Hypoglycemia (861861666) Hypoglycemia (E16.2) Active confirmed Problem Migraine without aura, not refractory (675454049) Migraine without aura and without status migrainosus, not intractable (G43.009) Active confirmed Problem Iron deficiency anemia (64096906) Iron deficiency anemia, unspecified iron deficiency anemia type (D50.9) Active confirmed Problem Seasonal allergic rhinitis (584866635) Acute seasonal allergic rhinitis (J30.2) Active confirmed Problem Normocytic anemia (782337752) Normocytic anemia (D64.9) Active confirmed Problem Respiratory tract congestion (410798446) Congestion of upper airway (J98.8) Active confirmed Problem History of bariatric surgery (715315019) History of bariatric surgery (Z98.84) Active confirmed Problem Plantar nerve lesion (120910777) 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 Encounters Encounter Location Date Provider Diagnosis [facility] [address] [address] 01/21/2024 Perri McNees [facility] [address] [address] 09/20/2024 Provider Migration Muscle pain M79.10 [facility] [address] [place] [address] 01/22/2024 Perri Yuries Vertigo R42 ; Routine medical exam Z00.00 ; B12 deficiency E53.8 ; Other iron deficiency anemia D50.8 ; GERD without esophagitis K21.9 ; Daily headache R51.9 ; Paresthesia R20.2 ; Dizziness R42 ; H/O gastric sleeve Z90.3 and Obesity (BMI 30-39.9) E66.9 [facility] [address] [place] [address] 01/29/2024 Perri Alejo Other iron deficiency anemia D50.8 ; Dizziness R42 ; H/O gastric sleeve Z90.3 and Obesity (BMI 30-39.9) E66.9 [facility] [address] [place], [place] [address] 02/06/2024 Mima Biggs Sore throat J02.9 ; Viral URI J06.9 and Congestion of upper respiratory tract J39.8 [facility] [address] [place], [place] [address] 05/13/2024 Mima Biggs Muscle pain M79.10 [facility] [address] [address] 01/21/2024 Perri Alejo Elevated blood pressure reading [...] 1-2 weeks if no improvement of symptoms. 05/13/2024 Muscle pain (ICD-10 - M79.10) Discussed [...] above. 09/20/2024 Muscle pain (ICD-10 - M79.10) 01/29/2024 Dizziness (ICD-10 - R42) 01/29/2024 Other [...] 023 M-D-Dimer 06/28/2020 M-Comprehensive Metabolic Panel 11/10/19 23 M-Hemoglobin A1C 11/09/2022 M-Lipid Panel 11/09/2022 M-Thyroid [...] Coverage Start Date Coverage End Date [employer] [facility] [address] [address] [place] [address] [phone] [id number] Gisel Stahl Self - patient is the [...] Surgery Date(Month/Year) 11/21/2004-11/27/07-03/26/09 bladder scraping 1985 gastric sleeve-[facility] 09/2021 Hospitalization History Reason Date(Month/Year) gastric sleeve 09/2021 syncope Elevated bp and vertigo 06/2016
--- OUTSIDE RECORDS SUMMARY | 2024-12-12 12:39 | XMS_ITS | Data Portability ---
Author Organization [facility] [place] [facility] ADMIN Address [address] [place] [id number] Care Team Providers Care Stitcher Standard Machine Name Role Phone RUDOLPH BYERS Primary Care Provider Assessment Encounter Date Assessment Date Assessment LastModified by Organization Details LastModified Time 04/11/2022 04/11/2022 Advised qid intake 50% protein 9760-3456 calories/dy less than 100 carbs/dy Long discussion [...] 15:55:08 CMP, serum or plasma 2021 022 Not available 3 16:46:59 HbA1c (hemoglobin A1c), blood 2021 022 [email or web address] Not available 3 16:46:59 lipid panel, blood 2021 022 [email or web address] Not available 3 16:46:59 iron + TIBC + ferritin, serum 2021 022 [email or web address] Not available 3 16:47:00 folate, serum 2021 022 [email or web address] Not available 16:47:00 mma (methylmalo harvey acid), serum 2021 022 [email or web address] Not available 16:47:00 vitamin B1 (thiamine), blood 2021 022 [email or web address] Not available 16:47:00 vitamin D, 25-hydroxy, total, serum 2021 022 [email or web address] Not available 16:47:00 vitamin E, serum 2021 022 [email or web address] Not available 16:47:00 vitamin A (retinol), serum 2021 022 [email or web address] Not available 16:47:01 Referral None recorded. Procedures None recorded. Surgeries None recorded. Imaging electrocard iogram 2022 023 [facility], [address], [place], [address], 3 13:01:52 RF, upper gastrointes tinal tract, w/ contrast PO 2022 023 [email or web address] 153 [facility] (Centralized Scheduling), [address], [place], [address], 3 15:11:55 Medication Orders Carafate 100 mg/mL oral suspension [address] [facility] [address] [facility], [address] [place] [address], [address], [place], [address], 3 13:51:44 amitriptyli ne 25 mg tablet [address], [address] [place] [address], [address], [place], [address], 3 13:51:38 famotidine 20 mg tablet [address], [address] [facility], [address], [place], [address], 13:52:58 Patient TargetsNo targets recorded. Patient InstructionsNo instructions recorded. Reason for Referral None Reported. Results Created Date Observation Date Name Description Value Unit Range Abnormal Flag Note LastModifiedBy Organization Detail LastModifiedTime 07/28/1907/28/2022 CBC AUTO W DIFF WBC 4.8 K/uL 4.0-10 .5 Not Available [facility] ([facility]) [address], [place], [address], 07/28/2022 08:59:18 07/28/19 23 07/28/2022 CBC AUTO W DIFF RBC 4.5 M/mm3 4.2-6. 4 Not Available [facility] ([facility]) [address], [place], [address], 07/28/2022 08:59:18 07/28/19 23 07/28/2022 CBC AUTO W DIFF HGB 12.4 gm/dL 12.5-1 6.0 low Not Available [facility] ([facility]) [address], [place], [address], 07/28/2022 08:59:18 07/28/19 23 07/28/2022 CBC AUTO W DIFF HCT 39.5 % 37.0-4 7.0 Not Available [facility] ([facility]) [address] , [place], [address], 07/28/2022 08:59:18 07/28/19 23 07/28/2022 CBC AUTO W DIFF MCV 87.8 fL 78-100 Not Available [facility] ([facility]) [address] , [place], [address], 07/28/2022 08:59:18 07/28/19 23 07/28/2022 CBC AUTO W DIFF MCH 27.6 pg 27-31 Not Available [facility] ([facility]) [address] , [place], [address], 07/28/2022 08:59:18 07/28/19 23 07/28/2022 CBC AUTO W DIFF MCHC 31.4 g/dL 32-36 low Not Available [facility] ([facility]) [address] , [place], [address], 07/28/2022 08:59:18 07/28/19 23 07/28/2022 CBC AUTO W DIFF RDW 12.9 % 11.5-1 4.0 Not Available [facility] ([facility]) [address], [place], [address], 07/28/2022 08:59:18 07/28/19 23 07/28/2022 CBC AUTO W DIFF platelet count 217 K/uL 150-45 0 Not Available [facility] ([facility]) [address], [place], [address], 07/28/2022 08:59:18 07/28/19 23 07/28/2022 CBC AUTO W DIFF neutrophil% 50.4 % 43-65 Not Available [facility] ([facility]) [address] , [place], [address], 07/28/2022 08:59:18 07/28/19 23 07/28/2022 CBC AUTO W DIFF lymphocyte% 33.5 % 20.5-4 5.5 Not Available [facility] ([facility]) [address], [place], [address], 07/28/2022 08:59:18 07/28/19 23 07/28/2022 CBC AUTO W DIFF monocyte% 6.5 % 5.5-11 .7 Not Available [facility] ([facility]) [address] [place], [address], 07/28/2022 08:59:18 07/28/19 23 07/28/2022 CBC AUTO W DIFF eosinophil% 9.4 % 0.9-2. 9 high Not Available [facility] ([facility]) [address] [facility], [place], [address], 07/28/2022 08:59:18 07/28/19 23 07/28/2022 CBC AUTO W DIFF basophil% 0.2 % 0.2-1. 0 Not Available [facility] ([facility]) [address] [place], [address], 07/28/2022 08:59:18 07/28/19 23 07/28/2022 CBC AUTO W DIFF neutrophil# 2.4 K/uL 2.2-4. 8 Not Available [facility] ([facility]) [address] [facility], [place], [address], 07/28/2022 08:59:18 07/28/19 23 07/28/2022 CBC AUTO W DIFF lymphocyte# 1.6 cell/ mcL 1.3-2. 9 Not Available [facility] ([facility]) [address] [place], [address], 07/28/2022 08:59:18 07/28/19 23 07/28/2022 CBC AUTO W DIFF monocyte# 0.3 cell/ mcL 0.3-0. 8 Not Available [facility] ([facility]) [address] [place], [address], 07/28/2022 08:59:18 07/28/19 23 07/28/2022 CBC AUTO W DIFF eosinophil# 0.5 cell/ mcL 0-0.2 high Not Available [facility] ([facility]) [address] [place], [address], 07/28/2022 08:59:18 07/28/19 23 07/28/2022 CBC AUTO W DIFF basophil# 0.0 cell/ mcL 0.0-1. 0 Not Available [facility] ([facility]) [address], [place], [address], 07/28/2022 08:59:18 07/28/19 23 07/28/2022 CBC AUTO W DIFF manual differential NO Not Available [facility] ([facility]) [address], [place], [address], 07/28/2022 08:59:18 07/28/19 23 07/28/2022 HEMOG LOBIN A1C A1C 5.4 % 3.8-5. 6 GLYCO SYLAT ED HEMOG LOBIN (A1C) EXPEC FAVIOLA RANGE S: <6.5 NON-D IABET IC 6.5-7 .5 EXCEL LENT 7.5-8 .5 GOOD >8.5 POOR Not Available [facility] ([facility]) [address] , [place], [address], 07/28/2022 09:50:55 07/28/19 23 07/28/2022 COMP METAB OLIC PANEL sodium 139 mmol/ L 136-14 5 Not Available [facility] ([facility]) [address], [place], [address], 07/28/2022 09:50:56 07/28/19 23 07/28/2022 COMP METAB OLIC PANEL potassium 4.0 mmol/ L 3.6-5. 0 Not Available [facility] ([facility]) [address] , [place], [address], 07/28/2022 09:50:56 07/28/19 23 07/28/2022 COMP METAB OLIC PANEL chloride 103 mmol/ L 98-107 Not Available [facility] ([facility]) [address] , [place], [address], 07/28/2022 09:50:56 07/28/19 23 07/28/2022 COMP METAB OLIC PANEL carbon dioxide 27.2 mmol/ L 21.0-3 2.0 Not Available [facility] ([facility]) [address], [place], [address], 07/28/2022 09:50:56 07/28/19 23 07/28/2022 COMP METAB OLIC PANEL anion gap 12.8 Not Available [facility] ([facility]) [address], [place], [address], 07/28/2022 09:50:56 07/28/19 23 07/28/2022 COMP METAB OLIC PANEL glucose 81 mg/dL 70-120 Not Available [facility] ([facility]) [address], [place], [address], 07/28/2022 09:50:56 07/28/19 23 07/28/2022 COMP METAB OLIC PANEL BUN 13 mg/dL 7-18 Not Available [facility] ([facility]) [address] , [place], [address], 07/28/2022 09:50:56 07/28/19 23 07/28/2022 COMP METAB OLIC PANEL creatinine 0.8 mg/dL 0.6-1. 3 Not Available [facility] ([facility]) [address], [place], [address], 07/28/2022 09:50:56 07/28/19 23 07/28/2022 COMP METAB OLIC PANEL glomerular filtration rate >60 mlper min 60- Not Available [facility] ([facility]) [address] , [place], [address], 07/28/2022 09:50:56 07/28/19 23 07/28/2022 COMP METAB OLIC PANEL total protein 7.5 g/dL 6.4-8. 2 Not Available [facility] ([facility]) [address], [place], [address], 07/28/2022 09:50:56 07/28/19 23 07/28/2022 COMP METAB OLIC PANEL albumin 4.0 g/dL 3.4-5. 0 Not Available [facility] ([facility]) [address], [place], [address], 07/28/2022 09:50:56 07/28/19 23 07/28/2022 COMP METAB OLIC PANEL globulin 3.5 Not Available [facility] ([facility]) [address], [place], [address], 07/28/2022 09:50:56 07/28/19 23 07/28/2022 COMP METAB OLIC PANEL alb/glob ratio 1.1 0.7-2 Not Available [facility] ([facility]) [address], [place], [address], 07/28/2022 09:50:56 07/28/19 23 07/28/2022 COMP METAB OLIC PANEL calcium 9.4 mg/dL 8.5-10 .5 Not Available [facility] ([facility]) [address], [place], [address], 07/28/2022 09:50:56 07/28/19 23 07/28/2022 COMP METAB OLIC PANEL bilirubin total 0.60 mg/dL 0.10-1 .00 Not Available [facility] ([facility]) [address] , [place], [address], 07/28/2022 09:50:56 07/28/19 23 07/28/2022 COMP METAB OLIC PANEL AST (SGOT) 18 U/L 0-37 Not Available [facility] ([facility]) [address] , [place], [address], 07/28/2022 09:50:56 07/28/19 23 07/28/2022 COMP METAB OLIC PANEL ALT (SGPT) 18 U/L 0-65 Not Available [facility] ([facility]) [address] , [place], [address], 07/28/2022 09:50:56 07/28/19 23 07/28/2022 COMP METAB OLIC PANEL alk phosphatase 76 U/L 46-116 Not Available [facility] ([facility]) [address] [facility], [place], [address], 07/28/2022 09:50:56 07/28/19 23 07/28/2022 LYNNETTE TIN ferritin, serum 13 NG/mL 3-244 Not Available [facility] ([facility]) [address] [facility], [place], [address], 07/28/2022 09:52:09 07/28/19 23 07/28/2022 FOLIC ACID folate (folic acid), serum 3.5 NG/mL 8.6-58 .9 low *Note : Refer troy iverson New Test Metho d in use. Not Available [facility] ([facility]) [address] [facility], [place], [address], 07/28/2022 09:52:11 07/28/19 23 07/28/2022 IRON STUDY (IRON /TIBC /%SAT ) iron 94 mcg/m L 40-180 Not Available [facility] ([facility]) [address] [facility], [place], [address], 07/28/2022 10:22:47 07/28/19 23 07/28/2022 IRON STUDY (IRON /TIBC /%SAT ) TIBC 361 mcg/d L 250-45 0 Not Available [facility] ([facility]) [address] [facility], [place], [address], 07/28/2022 10:22:47 07/28/19 23 07/28/2022 IRON STUDY (IRON /TIBC /%SAT ) %sat 26 15-55 Not Available [facility] ([facility]) [address] [facility], [place], [address], 07/28/2022 10:22:47 07/28/19 23 07/28/2022 VITAM IN D, 25-HY DROXY vitamin D, 25-hydroxy 18.1 NG/mL 30.0-1 00.0 low Not Available [facility] ([facility]) [address] [facility], [place], [address], 07/28/2022 10:47:12 07/28/19 23 07/28/2022 LIPID PANEL triglyceride 49 mg/dL 30-200 Not Available [facility] ([facility]) [address] [facility], [place], [address], 07/28/2022 11:58:34 07/28/19 23 07/28/2022 LIPID PANEL cholesterol 198 mg/dL 0-200 Not Available [facility] ([facility]) [address] [facility], [place], [address], 07/28/2022 11:58:34 07/28/19 23 07/28/2022 LIPID PANEL HDL 52 mg/dL 40-104 Not Available [facility] ([facility]) [address] [facility], [place], [address], 07/28/2022 11:58:34 07/28/19 23 07/28/2022 LIPID PANEL LDL calculated 136 mg/dL 0-130 high Not Available [facility] ([facility]) [address] [place], [address], 07/28/2022 11:58:34 07/28/19 23 08/02/2022 VITAM IN B1 ISAAC INE vitamin B1 (thiamine), plasma 93.1 nmol/ L 66.5-2 00.0 Speci men Comme nt: Test( s) 08448 8-Vit . B1, Whole Blood Speci men Comme nt: was nica malcolm and its perfo rmanc e lauren cte risti cs Speci men Comme nt: deter mined by [facility]. It has not been spencer ared or appro carlyn Speci men Comme nt: by the Food and Drug Admin istra tion. Perfo rmed at: [facility] [address] [place] [address] Lab Direc tor: Karina esparza MD, Phone : [phone] Not Available [facility] ([facility]) [address] , [place], [address], 08/02/2022 15:12:54 07/28/19 23 08/02/2022 VITAM IN E vitamin E(alpha tocopherol) 10.3 mg/L 7.0-25 .1 Not Available [facility] ([facility]) [address] , [place], [address], 08/02/2022 20:10:01 07/28/19 23 08/02/2022 VITAM IN [...] in E defic ient. Perfo rmed at: [facility] [address] [place] [address] Lab Direc tor: Karina esparza MD, Phone : [phone] Not Available [facility] ([facility]) [address] , [place], [address], 08/02/2022 20:10:01 07/28/19 23 08/03/2022 VITAM IN [...] e lauren cteri stics deter mined by [employer] . It has not been clear ed or appro carlyn by the Food and Drug Admin istra tion. Perfo rmed at: [facility] [address] [place] [address] Lab Direc tor: Karina esparza MD, Phone : [phone] Not Available [facility] ([facility]) [address] [facility], [place], [address], 08/03/2022 06:12:39 07/28/19 23 08/09/2022 METHY LMALO HARVEY ACID QUANT methylmaloni c acid, serum 777 nmol/ L 0-378 high Speci men Comme nt: Test( s) 76426 7-Met hylma lonic Acid, Serum Speci men Comme nt: was devel oped and its perfo rmanc e lauren cte risti cs Speci men Comme nt: deter mined by [employer] [facility]. It has not been spencer ared or appro carlyn Speci men Comme nt: by the Food and Drug Admin istra tion. Perfo rmed at: [facility] [address] [address] Lab Direc tor: Karina esparza MD, Phone : [phone] Not Available [facility] ([facility]) [address] [facility], [place], [address], 08/09/2022 13:10:51 07/28/19 23 07/28/2022 ugi with KUB [facility] [address] [place] [address] Phone: Fax: Name: MALAIKA SOUTH Exam Date: 023 : [birth year] Age 42 Gender : F Access ion: [id number] Physic shona: SIZEMO RE, EDWARD Facili ty: [facility] Facili ty HSV: Outpat ient Exam: [...] [facility] Legall y authen ticate d by KIERA MCMULLEN 07-28 09:05: 37 CC'ed Logic: Orderi ng Provid er: SIZEMO RE EDWARD Attend ing Provid er: SIZEMO RE EDWARD Admitt ing Provid er: SIZEMO RE EDWARD [email or web address] [facility] [address], [place], [address], 07/28/2022 11:59:48 01/05/20 23 12/14/2022 cardi ac clear ance* No observ ation record ed. [email or web address] [facility] (Med Record) [address], [place], [address], 04/20/2023 09:09:03 01/05/20 23 12/21/2022 cardi ac clear ance* No observ ation record ed. [email or web address] [facility] [address], [place], [address], 04/20/2023 09:08:08 01/23/20 23 01/23/2023 elect rocar diogr am No observ ation record ed. [facility] [address], [place], [address], 01/23/2023 13:04:23 01/24/20 23 01/22/2023 elect rocar diogr am No observ ation record ed. [facility] [address], [place], [address], 01/23/2023 13:01:52 08/15/19 24 07/28/2022 ugi with KUB [facility] [address] [place] [address] Phone: Fax: Name: MALAIKA SOUTH Exam Date: 023 : [birth year] Age 42 Gender : F Access ion: [id number] Physic shona: SIZEMO RE, EDWARD Facili ty: [facility] Facili ty HSV: Outpat ient Exam: [...] ed By: MICAELA HUSSEIN Dictat ed Date: 024 10:33: 42 AM Electr onical ly signed by: MICAELA HUSSEIN 024 Thank you for referr MALAIKA Yan to [facility]. Legall y authen ticate d by POPE MICAELA Wallace 08-15 10:33: 42 CC'ed Logic: Orderi ng Provid er: RUBEN FREIRE Attend ing Provid er: RUBEN FREIRE Admitt ing Provid er: CLAUDIOMO RE TED [email or web address] [facility] [address] [facility], [place], [address], 08/15/2023 10:55:04 Result Notes None recorded. Problems Name Problem SNOMED Code Status Onset Date Resolution Date Notes Provider Name and Address Organization Details Recorded Time Laparoscopic sleeve gastrectomy Active 2021 Tde Woodard DNP, MOTOR VEHICLE OPERATOR RO[address] SUPERVISOR, PLACING JUDGE-C [address], [place], [address] , [facility] & [place] 09:07:34 Morbid obesity 236852048 Active 2021 Ted Woodard DNP, MOTOR VEHICLE OPERATOR [address] SUPERVISOR, PLACING JUDGE-C [address] , [place], [address] , [facility] - [facility] & [place] 2 09:08:10 Dyslipidemia 952757759 Active 2021 Ted Woodard DNP, MOTOR VEHICLE OPERATOR [address] SUPERVISOR, PLACING JUDGE-C [address], [place], [address] , [place] - [facility] [place] & [place] 2 09:08:17 Elevated blood-pressur e reading without diagnosis of hypertension 795127457 Active 2021 Ted Woodard DNP, MOTOR VEHICLE OPERATOR [address] SUPERVISOR, PLACING JUDGE-C [address], [place], [address] , [place] - [facility] - [place] & [place] 2 14:50:06 Intentional weight loss 331119085 Active 2021 Ted Woodard DNP, MOTOR VEHICLE OPERATOR [address] SUPERVISOR, PLACING JUDGE-C [address], [place], [address] , [place] - [facility] - [place] & [place] 2 14:52:58 Heartburn 95945606 Active 2021 Ted Woodard DNP, MOTOR VEHICLE OPERATOR [address] SUPERVISOR, PLACING JUDGE-C [address], [place], [address] , [place] - [facility] - [place] & [place] 2 15:12:32 Increased belching 35458481 Active 2021 Ted Woodard DNP, MOTOR VEHICLE OPERATOR [address] SUPERVISOR, PLACING JUDGE-C [address], [place], [address] [place] [address] , [place] - [facility] - [place] & [place] 2 15:12:40 Obesity 601620585 Active 2022 Ted Woodard DNP, MOTOR VEHICLE OPERATOR [address] SUPERVISOR, PLACING JUDGE-C [address], [place], [address] , [place] - [facility] - [place] & [place] 3 15:28:14 Epigastric pain 76898739 Active 2022 Ted Woodard DNP, MOTOR VEHICLE OPERATOR [address] SUPERVISOR, PLACING JUDGE-C [address], [place], [address] , [place] - [facility] - [place] & [place] 3 15:45:12 Transient altered mental status 703592373 Active 2022 Angel Luis Cui MD [address] , [place], [address] , [facility] - NT [facility] & [place] 3 14:09:18 Problem Notes Documentation Provider Name and Address Organization Details Recorded Time Dietitian Note : [facility] Nutrition Consultation/Follow-up Progress Note Date: 03/29/2022 [...] peanut butter, vegetables w/ ranch, tuna Form: [employer], peanut butter, seafood Source: water, crystal [...] - discussed exercise ideas Barbie Woodard, DNP, MOTOR VEHICLE OPERATOR [address] SUPERVISOR, PLACING JUDGE-C [address], [place], [address], [facility] - [facility] - [place] & [place] 05/25/2022 10:17:56 Procedures Surgical History Date Name Laterality Status Provider Name and Address Organization Details Recorded Time 02/26/20 22 completed Rosina Baron [place] - [facility] & [place] 01/22/2023 13:42:29 section completed Cedric horn [place] - [facility] & [place] 04/11/2022 14:47:19 extraction of wisdom tooth completed Cedric PRUITT [facility] & [place] 04/11/2022 14:47:24 Tubal Ligation completed Cedric PRUITT [facility] & [place] 04/11/2022 14:47:39 laparoscopic sleeve gastrectomy completed Cedric PRUITT [facility] & [place] 04/11/2022 14:47:47 Imaging Results None recorded. Procedure Notes None recorded. Medical Equipment None Reported. Allergies Allergen ID Allergen Name Allergen Category Reaction Reaction Severity Criticality Documentation Date Start Date Code Code System Note Provider Name and Address Organization Details Recorded Time 15629 Product containin g penicilli n (product) medicatio n Not available Not available Not available 04/11/2022 04338 8001 SNOMED Cedric salcido, [place] PRUITT [facility] & [place] 2 14:42:41 72955 Lexapro medicatio n rash moderate Not available 04/11/2022 26288 1 RxNorm [place] Nelson [facility] & [place] 2 14:42:50 16779 penicilli n G Not available hives itching moderate moderate Not available 01/22/2023 7980 RxNorm Rosina salcido, [place] Craft SENTHIL [facility] & [place] 3 13:42:12 Medications Name Sig Start Date [...] Updated DateTime 3 160.02 cm 32.8 kg/m2 66239.5 9 g 97.5 [degF] 63 /min 151 mm[Hg] 94 mm[Hg] Justyna Spivey [facility] & [place] 3 15:24:34 Date Recorded Body height Body mass index (BMI) Body weight Oxygen saturation Oxygen saturation in Arterial blood by Pulse oximetry Heart rate Systolic blood pressure Diastolic blood pressure Provider Name and Address Organization Details Last Updated DateTime 3 160.02 cm 32.6 kg/m2 85438 g 100 % 100 % 71 /min 124 mm[Hg] 86 mm[Hg] Rosina Baron [facility] & [place] 3 13:55:36 Date Recorded Body temperature Body height Body mass index (BMI) Body weight Heart rate Systolic blood pressure Diastolic blood pressure Provider Name and Address Organization Details Last Updated DateTime 2 98.2 [degF] 160.02 cm 36.1 kg/m2 56668.7 7 g 76 /min 138 mm[Hg] 94 mm[Hg] Cedric catam [facility] & [place] 2 14:46:49 Social History Question Answer Notes LastModified by [employer] Details LastModified Time Tobacco Smoking Status Never Smoker Cedric Landaverde [facility] & [place] 04/11/2022 14:44:28 Do You Have An Advance [...] Functional Status Question Answer Note LastModified by [employer] Details LastModified Time Do you use any [...] anxious, or unable to sleep at night)? [id number] Information not available 01/22/2023 Family History Relationship Description Onset Age of this Age Resolved Age Notes LastModified by Organization Details LastModified Time Father No current problems or disability Not available 01/22 13:54:33 Mother No current problems or disability Not available 01/22 13:54:33 Medical History Condition Response Allergies/Hayfever Y Vision or Eye Problems Y Kidney Stones Y Infertility Y Thyroid Problems Y Hypothyroidism Y Depression Y Bladder or Kidney Problems Y Reflux/GERD [...] SNOMED-CT Code Diagnosis ICD10 Code Diagnosis Note [id number] Ted Woodard, DNP, MOTOR VEHICLE OPERATOR ROAD SUPERVISOR, PLACING JUDGE-C [facility] [address] [facility] [address] [place] [address] 04/11/2022 14:28:56 04/11/2022 15:44:49 Dyslipidemia 340198578 E78.5 Morbid obesity 492359869 E66.01 History of bariatric surgical procedure [id number] Z98.84 . History of gastrectomy 276048609 Z90.3 Patient is status post bariatric surgery and at increased risk for vitamin deficienci es and malnutriti on. Bariatric vitamin panel ordered today. Patient will be contacted to correct any vitamin deficienci es. Elevated blood-pressure reading without diagnosis of hypertension 714668255 R03.0 Intentiona l weight loss 472245363 R63.8 Heartburn 17348861 R12 GERD-patie nt was reassured. We discussed [...] also add Carafate as needed. Increased belching 29504 005 R14.2 [id number] Ted Woodard, DNP, MOTOR VEHICLE OPERATOR ROAD SUPERVISOR, PLACING JUDGE-C [facility] [address] [facility] [address] [place] [address] 07/21/2022 15:11:20 07/21/2022 15:47:32 History of bariatric surgical procedure [id number] Z98.84 Advised qid intake 50% protein 2260-0420 calories/d y less than 100 carbs/dy Long [...] with any deficienci es. History of gastrectomy 928809333 Z90.3 Patient is status post bariatric surgery and at increased risk for vitamin deficienci es and malnutriti on. Bariatric vitamin panel ordered today. Patient will be contacted to correct any vitamin deficienci es. Intentiona l weight loss 296571946 R63.8 Elevated blood-pressure reading without diagnosis of hypertension 864504790 R03.0 Dyslipidemia 440578132 E 78.5 Obesity 483542772 E66.9 Epigastric pain 77544762 R10.13 may try tylenol as needed for pain as well as heating pad. will proceed with UGI. Possible CT scan of abdomen. [id number] Angel Luis Cui MD [facility] [address] [place] [address] 01/22/2023 13:25:38 01/22/2023 14:59:38 Transient altered mental status [id number] R41.82 I do not think this is [...] Member ID Guarantor Name 01/19/2023 1 [employer] [facility] (MEDICAID HMO) Malaika South [id number] Malaika South Notes Date Note Type Note [...] Rate =1370 kilo calories Ted Woodard DNP, EMRE, PLACING JUDGE-C [address] , [place], [address], [facility] & [place] 04/11/2022 15:14:09 07/21/2022 text/html Patient presents the [...] eat fast. She has not tried any kgfa-adj-ksbfsvi medications or treatments. Currently rates mid epigastric abdominal pain at 3/10.Today's InBody reveals a skeletal muscle mass = 54.0 lb,body fat mass = 82.9 lb,BMI = 32.8Percent body fat = 44.8Basal Metabolic Rate = 1370 kilo calories Ted Woodard DNP, EMRE, PLACING JUDGE-C [address], [place], [address], [facility] & [place] 07/21/2022 15:48:08 01/22/2023 text/html 42 F here [...] EF no valvular abnormalitiesEKG 01/22/2023 NSR 76 DE interval 190 QRS 80 QTC 420 Angel Luis Cui MD [address], [place], [address], [facility] - [place] & [place] 01/22/2023 14:47:01 OBGyn Episode No OBEpisode recorded.
[2024-12-12 12:50] VITALS: BP 116/75; PULSE 66; RESP 17; O2SAT 100
[2024-12-12] MEDS: IRON SUCROSE COMPLEX 200 MG in 0.9 % SODIUM CHLORIDE 100 ML 220 MG IV (12:50)
[2024-12-12] MEDS: SODIUM CHLORIDE 0.9% 50ML BAG 50 ML IV (12:50)
[2024-12-12 13:20] VITALS: BP 110/71; PULSE 55; RESP 16
== END 2024-12-12 13:35 | disposition home or self-care (01) ==
LOC: INF 12:37
PROVIDERS: PCP Nurse Practitioner Family; Visit Provider Internal Medicine Medical Oncology
DX: K95.89 Other complications of other bariatric procedure (principal); D62 Acute posthemorrhagic anemia; Z98.84 Bariatric surgery status
CPT/HCPCS: 96365; J1756

== ENCOUNTER 2024-12-18 13:06 | Outpatient (CLI) | payer OTHER, SELFPAY ==
--- OUTSIDE RECORDS SUMMARY | 2024-02-26 11:30 | XMS_ITS ---
Author Organization [facility] Address [address] [place] [address] Care Team Providers Care Yacht Master Name Role Phone Messi Mejia Primary Care Provider Perri Alejo [phone] REASON FOR VISIT 3 Week F/U Encounters Encounter Location Date Provider Diagnosis [facility] [address] [place], [place] [address] 02/26/2024 Perri Alejo Plan Of Treatment No Information Progress Notes * Gisel STAHL FDOB:1980 (44 yo F)Acc No.[id number]:02/26/2024 Progress Notes Patient: Gisel YOUNGBLOOD Provider: Sy Alejo APRN :1980 A ge:43 Y S ex:Female Date:02/26/2024 Address:[address] [place] [id number] Pcp:Messi Mejia Subjective: * Chief Complaints: * 1 . 3 Week F/U. * Medical History: Objective: * Vitals: Assessment: Plan: * Treatment: * * Electronic signature of Teresita Alejo APRN on 12/18/2024 at 01:11 PM EDT Sign off status: Pending * Provider: Sy Alejo APRN Date: 0 02/26/2024 Generated for Rafa acosta/Steph/Terellitting on: 0 12/18/2024 01:11 PM EDT
--- OUTSIDE RECORDS SUMMARY | 2024-09-20 17:30 | XMS_ITS ---
Author Organization [facility] Address [address] [place] [address] Care Team Providers Care Dorr Operator Name Role Phone Messi Mejia Primary Care Provider [phone] Preri Alejo Unavailable [phone] Migration, Provider Unavailable Unavailable Allergies Allergen (clinical drug ingredient) Drug/Non Drug Allergy documented on EMR Reaction Allergy Type Onset Date Status escitalopram Lexapro rash Drug Allergy Acti ve Penicillin hives Drug Allergy Active REASON FOR VISIT [facility] To [facility] Conversion Encounter Medications Medication SIG (Take, Route, Frequency, Duration) Notes Start Date End Date Status Pataday 0.2 % 1 gtt in each affected eye once a day; Duration: 10 day(s) prn Active ZyrTEC Allergy 10 MG 1 tab(s) orally once a day; Duration: 30 days prn Active Meclizine HCl 25 MG 1 tab(s) orally 3 times a day; Duration: 14 days 01/22/2024 Active valACYclovir HCl 1 GM 1 tab(s) orally every 12 hours; Duration: 7 days prn 10/23/2023 Active Flonase Allergy Relief 50 MCG/ACT 2 spray(s) intranasally once a day prn; Duration: 30 day(s) 05/01/2018 Active B-12 1000 MCG 1 tab(s) orally once a day Active Omeprazole 40 MG 1 cap(s) orally once a day; Duration: 30 day(s) twice a day Active WILNER D 60 MG 1 TAB BID; Duration: 30 DAYS prn *Please review for potential replacement for e-prescription and drug interaction check* Active Methocarbamol 500 MG as directed orally every 8 hours; Duration: 5 days 05/13/2024 Active predniSONE 20 MG 2 tabs orally once a day; Duration: 3 days 05/13/2024 Active Encounters Encounter Location Date Provider Diagnosis [facility] [address] [place] [address] 09/20/2024 Provider Migration Muscle pain M79.10 Assessments Encounter Date Diagnosis (ICD Code) Assessment Notes Treatment Notes Treatment Clinical Notes Section Notes 09/20/2024 Muscle pain (ICD-10 - M79.10) Plan Of Treatment Medication Medication Name Sig Start Date Stop Date Notes Methocarbamol 500 MG as directed orally every 8 hours; Duration: 5 days 05/13/2024 predniSONE 20 MG 2 tabs orally once a day; Duration: 3 days 05/13/2024 Progress Notes * Gisel STAHL FDOB:1980 (44 yo F)Acc No.[id number]:09/20/2024 Patient: Gisel YOUNGBLOOD Provider: Sydnie Preston :1980 A ge:44 Y S ex:Female Date:09/20/2024 Address:[facility] [id number] Pcp:Messi Mejia Subjective: * Chief Complaints: [...] Vitals: Assessment: * Assessment: 1. M ellie [facility] - M79.10 (Primary) Plan: * Treatment: * * Electronic signature of [place] Migration on 12/18/2024 at 01:11 PM EDT Sign off status: Pending * Provider: Sydnie cunha Migration Date: 0 09/20/2024 Generated for Rafa acosta/Steph/Terellitting on: 0 12/18/2024 01:11 PM EDT
--- OUTSIDE RECORDS SUMMARY | 2024-12-18 13:12 | XMS_ITS | Clinical Summary ---
Author Organization Healthcare Address [address] [place] [address] Care Team Providers Care Database Management System Specialist Name Role Phone Messi Mejia MD Primary Care Provider [phone] Family History Medical History Relation Name Comments [...] (2 - Td or Tdap) 08/28/2023 08/27/2013 [id number] Vaccine (3 - 2023- season) 2024 02/04/2021, 01/07/2021 [facility]-Influenza Vaccine (#1) 02/16/202504/12, 05/31/2019, 04/17/2018, Additional history exists [facility]-Zoster Vaccines [...] age to complete this topic Insurance [facility] MEDICAID Care Teams Database Management System Specialist Relationship Specialty Start Date End Date Messi Mejia MD [address] [place] [address] [facility] - General 10/29/20
--- OUTSIDE RECORDS SUMMARY | 2024-12-18 13:12 | XMS_ITS | Data Portability ---
Author Organization [facility] [place] [facility] ADMIN Address [address] [place] [address] Care Team Providers Care Recruitment Consultant Name Role Phone RUDOLPH BYERS Primary Care Provider Assessment Encounter Date Assessment Date Assessment LastModified by Organization Details LastModified Time 04/11/2022 04/11/2022 Advised qid intake 50% protein 9321-9742 calories/dy less than 100 carbs/dy Long discussion [...] auto diff 2022 023 LIGIA Not available 08:59:18 CMP, serum or plasma 2022 023 LIGIA Not available 02/10/202 3 09:50:56 HbA1c (hemoglobin A1c), blood 2022 [...] 16:46:59 HbA1c (hemoglobin A1c), blood 2021 022 [email or web address] Not available 3 16:46:59 lipid panel, blood 2021 022 Not available 3 16:46:59 iron + TIBC + ferritin, serum 2021 022 [email or web address] Not available 3 16:47:00 folate, serum 2021 022 Not available 16:47:00 mma (methylmalo harvey acid), serum 2021 022 [email or web address] Not available 16:47:00 vitamin B1 (thiamine), blood 2021 022 [email or web address] Not available 16:47:00 vitamin D, 25-hydroxy, total, serum 2021 022 Not available 16:47:00 vitamin E, serum 2021 022 [email or web address] Not available 16:47:00 vitamin A (retinol), serum 2021 022 [email or web address] Not available 16:47:01 Referral None recorded. Procedures None recorded. Surgeries None recorded. Imaging electrocard iogram 2022 023 [facility], [address], [place], [address], 3 13:01:52 RF, upper gastrointes tinal tract, w/ contrast PO 2022 023 [email or web address] [facility] (Centralized Scheduling), [address], [place], [address], 3 15:11:55 Medication Orders Carafate 100 mg/mL oral suspension [address] [address] [facility], [address] [place] [address], [address], [place], [address], 3 13:51:44 amitriptyli ne 25 mg tablet [address], [address] [place] [address], [address], [place], [address], 3 13:51:38 famotidine 20 mg tablet [email or web address], [address] [facility], [address], [place], [address], 13:52:58 Patient TargetsNo targets recorded. Patient InstructionsNo instructions recorded. Reason for Referral None Reported. Results Created Date Observation Date Name Description Value Unit Range Abnormal Flag Note LastModifiedBy Organization Detail LastModifiedTime 07/28/1907/28/2022 CBC AUTO W DIFF WBC 4.8 K/uL 4.0-10 .5 Not Available [facility] ([facility]) [address], [place], [address], 07/28/2022 08:59:18 07/28/19 23 07/28/2022 CBC AUTO W DIFF RBC 4.5 M/mm3 4.2-6. 4 Not Available [facility] ([facility]) [address], [place], [address], 07/28/2022 08:59:18 07/28/19 23 07/28/2022 CBC AUTO W DIFF HGB 12.4 gm/dL 12.5-1 6.0 low Not Available [facility] ([facility]) [address], [place], [address], 07/28/2022 08:59:18 07/28/19 23 07/28/2022 CBC AUTO W DIFF HCT 39.5 % 37.0-4 7.0 Not Available [facility] ([facility]) [address] , [place], [address], 07/28/2022 08:59:18 07/28/19 23 07/28/2022 CBC AUTO W DIFF MCV 87.8 fL 78-100 Not Available [facility] ([facility]) [address] , [place], [address], 07/28/2022 08:59:18 07/28/19 23 07/28/2022 CBC AUTO W DIFF MCH 27.6 pg 27-31 Not Available [facility] ([facility]) [address] , [place], [address], 07/28/2022 08:59:18 07/28/19 23 07/28/2022 CBC AUTO W DIFF MCHC 31.4 g/dL 32-36 low Not Available [facility] ([facility]) [address] , [place], [address], 07/28/2022 08:59:18 07/28/19 23 07/28/2022 CBC AUTO W DIFF RDW 12.9 % 11.5-1 4.0 Not Available [facility] ([facility]) [address], [place], [address], 07/28/2022 08:59:18 07/28/19 23 07/28/2022 CBC AUTO W DIFF platelet count 217 K/uL 150-45 0 Not Available [facility] ([facility]) [address], [place], [address], 07/28/2022 08:59:18 07/28/19 23 07/28/2022 CBC AUTO W DIFF neutrophil% 50.4 % 43-65 Not Available [facility] ([facility]) [address] , [place], [address], 07/28/2022 08:59:18 07/28/19 23 07/28/2022 CBC AUTO W DIFF lymphocyte% 33.5 % 20.5-4 5.5 Not Available [facility] ([facility]) [address], [place], [address], 07/28/2022 08:59:18 07/28/19 23 07/28/2022 CBC AUTO W DIFF monocyte% 6.5 % 5.5-11 .7 Not Available [facility] ([facility]) [address] [place], [address], 07/28/2022 08:59:18 07/28/19 23 07/28/2022 CBC AUTO W DIFF eosinophil% 9.4 % 0.9-2. 9 high Not Available [facility] ([facility]) [address] [facility], [place], [address], 07/28/2022 08:59:18 07/28/19 23 07/28/2022 CBC AUTO W DIFF basophil% 0.2 % 0.2-1. 0 Not Available [facility] ([facility]) [address] [place], [address], 07/28/2022 08:59:18 07/28/19 23 07/28/2022 CBC AUTO W DIFF neutrophil# 2.4 K/uL 2.2-4. 8 Not Available [facility] ([facility]) [address] [facility], [place], [address], 07/28/2022 08:59:18 07/28/19 23 07/28/2022 CBC AUTO W DIFF lymphocyte# 1.6 cell/ mcL 1.3-2. 9 Not Available [facility] ([facility]) [address] [place], [address], 07/28/2022 08:59:18 07/28/19 23 07/28/2022 CBC AUTO W DIFF monocyte# 0.3 cell/ mcL 0.3-0. 8 Not Available [facility] ([facility]) [address] [place], [address], 07/28/2022 08:59:18 07/28/19 23 07/28/2022 CBC AUTO W DIFF eosinophil# 0.5 cell/ mcL 0-0.2 high Not Available [facility] ([facility]) [address] [place], [address], 07/28/2022 08:59:18 07/28/19 23 07/28/2022 CBC AUTO W DIFF basophil# 0.0 cell/ mcL 0.0-1. 0 Not Available [facility] ([facility]) [address], [place], [address], 07/28/2022 08:59:18 07/28/19 23 07/28/2022 CBC AUTO W DIFF manual differential NO Not Available [facility] ([facility]) [address], [place], [address], 07/28/2022 08:59:18 07/28/19 23 07/28/2022 HEMOG LOBIN A1C A1C 5.4 % 3.8-5. 6 GLYCO SYLAT ED HEMOG LOBIN (A1C) EXPEC FAVIOLA RANGE S: <6.5 NON-D IABET IC 6.5-7 .5 EXCEL LENT 7.5-8 .5 GOOD >8.5 POOR Not Available [facility] ([facility]) [address] , [place], [address], 07/28/2022 09:50:55 07/28/19 23 07/28/2022 COMP METAB OLIC PANEL sodium 139 mmol/ L 136-14 5 Not Available [facility] ([facility]) [address], [place], [address], 07/28/2022 09:50:56 07/28/19 23 07/28/2022 COMP METAB OLIC PANEL potassium 4.0 mmol/ L 3.6-5. 0 Not Available [facility] ([facility]) [address] , [place], [address], 07/28/2022 09:50:56 07/28/19 23 07/28/2022 COMP METAB OLIC PANEL chloride 103 mmol/ L 98-107 Not Available [facility] ([facility]) [address] , [place], [address], 07/28/2022 09:50:56 07/28/19 23 07/28/2022 COMP METAB OLIC PANEL carbon dioxide 27.2 mmol/ L 21.0-3 2.0 Not Available [facility] ([facility]) [address], [place], [address], 07/28/2022 09:50:56 07/28/19 23 07/28/2022 COMP METAB OLIC PANEL anion gap 12.8 Not Available [facility] ([facility]) [address], [place], [address], 07/28/2022 09:50:56 07/28/19 23 07/28/2022 COMP METAB OLIC PANEL glucose 81 mg/dL 70-120 Not Available [facility] ([facility]) [address], [place], [address], 07/28/2022 09:50:56 07/28/19 23 07/28/2022 COMP METAB OLIC PANEL BUN 13 mg/dL 7-18 Not Available [facility] ([facility]) [address] , [place], [address], 07/28/2022 09:50:56 07/28/19 23 07/28/2022 COMP METAB OLIC PANEL creatinine 0.8 mg/dL 0.6-1. 3 Not Available [facility] ([facility]) [address], [place], [address], 07/28/2022 09:50:56 07/28/19 23 07/28/2022 COMP METAB OLIC PANEL glomerular filtration rate >60 mlper min 60- Not Available [facility] ([facility]) [address] , [place], [address], 07/28/2022 09:50:56 07/28/19 23 07/28/2022 COMP METAB OLIC PANEL total protein 7.5 g/dL 6.4-8. 2 Not Available [facility] ([facility]) [address], [place], [address], 07/28/2022 09:50:56 07/28/19 23 07/28/2022 COMP METAB OLIC PANEL albumin 4.0 g/dL 3.4-5. 0 Not Available [facility] ([facility]) [address], [place], [address], 07/28/2022 09:50:56 07/28/19 23 07/28/2022 COMP METAB OLIC PANEL globulin 3.5 Not Available [facility] ([facility]) [address], [place], [address], 07/28/2022 09:50:56 07/28/19 23 07/28/2022 COMP METAB OLIC PANEL alb/glob ratio 1.1 0.7-2 Not Available [facility] ([facility]) [address], [place], [address], 07/28/2022 09:50:56 07/28/19 23 07/28/2022 COMP METAB OLIC PANEL calcium 9.4 mg/dL 8.5-10 .5 Not Available [facility] ([facility]) [address], [place], [address], 07/28/2022 09:50:56 07/28/19 23 07/28/2022 COMP METAB OLIC PANEL bilirubin total 0.60 mg/dL 0.10-1 .00 Not Available [facility] ([facility]) [address] , [place], [address], 07/28/2022 09:50:56 07/28/19 23 07/28/2022 COMP METAB OLIC PANEL AST (SGOT) 18 U/L 0-37 Not Available [facility] ([facility]) [address] , [place], [address], 07/28/2022 09:50:56 07/28/19 23 07/28/2022 COMP METAB OLIC PANEL ALT (SGPT) 18 U/L 0-65 Not Available [facility] ([facility]) [address] , [place], [address], 07/28/2022 09:50:56 07/28/19 23 07/28/2022 COMP METAB OLIC PANEL alk phosphatase 76 U/L 46-116 Not Available [facility] ([facility]) [address] [facility], [place], [address], 07/28/2022 09:50:56 07/28/19 23 07/28/2022 LYNNETTE TIN ferritin, serum 13 NG/mL 3-244 Not Available [facility] ([facility]) [address] [facility], [place], [address], 07/28/2022 09:52:09 07/28/19 23 07/28/2022 FOLIC ACID folate (folic acid), serum 3.5 NG/mL 8.6-58 .9 low *Note : Refer troy iverson New Test Metho d in use. Not Available [facility] ([facility]) [address] [facility], [place], [address], 07/28/2022 09:52:11 07/28/19 23 07/28/2022 IRON STUDY (IRON /TIBC /%SAT ) iron 94 mcg/m L 40-180 Not Available [facility] ([facility]) [address] [facility], [place], [address], 07/28/2022 10:22:47 07/28/19 23 07/28/2022 IRON STUDY (IRON /TIBC /%SAT ) TIBC 361 mcg/d L 250-45 0 Not Available [facility] ([facility]) [address] [facility], [place], [address], 07/28/2022 10:22:47 07/28/19 23 07/28/2022 IRON STUDY (IRON /TIBC /%SAT ) %sat 26 15-55 Not Available [facility] ([facility]) [address] [facility], [place], [address], 07/28/2022 10:22:47 07/28/19 23 07/28/2022 VITAM IN D, 25-HY DROXY vitamin D, 25-hydroxy 18.1 NG/mL 30.0-1 00.0 low Not Available [facility] ([facility]) [address] [facility], [place], [address], 07/28/2022 10:47:12 07/28/19 23 07/28/2022 LIPID PANEL triglyceride 49 mg/dL 30-200 Not Available [facility] ([facility]) [address] [facility], [place], [address], 07/28/2022 11:58:34 07/28/19 23 07/28/2022 LIPID PANEL cholesterol 198 mg/dL 0-200 Not Available [facility] ([facility]) [address] [facility], [place], [address], 07/28/2022 11:58:34 07/28/19 23 07/28/2022 LIPID PANEL HDL 52 mg/dL 40-104 Not Available [facility] ([facility]) [address] [facility], [place], [address], 07/28/2022 11:58:34 07/28/19 23 07/28/2022 LIPID PANEL LDL calculated 136 mg/dL 0-130 high Not Available [facility] ([facility]) [address] [place], [address], 07/28/2022 11:58:34 07/28/19 23 08/02/2022 VITAM IN B1 ISAAC INE vitamin B1 (thiamine), plasma 93.1 nmol/ L 66.5-2 00.0 Speci men Comme nt: Test( s) 24334 8-Vit . B1, Whole Blood Speci men Comme nt: was nica malcolm and its perfo rmanc e lauren cte risti cs Speci men Comme nt: deter mined by [facility]. It has not been spencer ared or appro carlyn Speci men Comme nt: by the Food and Drug Admin istra tion. Perfo rmed at: [facility] [address] [place] [address] Lab Direc tor: Karina esparza MD, Phone : [phone] Not Available [facility] ([facility]) [address] , [place], [address], 08/02/2022 15:12:54 07/28/19 23 08/02/2022 VITAM IN E vitamin E(alpha tocopherol) 10.3 mg/L 7.0-25 .1 Not Available [facility] ([facility]) [address] , [place], [address], 08/02/2022 20:10:01 07/28/19 23 08/02/2022 VITAM IN [...] in E defic ient. Perfo rmed at: [facility] [address] [place] [address] Lab Direc tor: Karina esparza MD, Phone : [phone] Not Available [facility] ([facility]) [address] , [place], [address], 08/02/2022 20:10:01 07/28/19 23 08/03/2022 VITAM IN [...] e lauren cteri stics deter mined by [employer] . It has not been clear ed or appro carlyn by the Food and Drug Admin istra tion. Perfo rmed at: [facility] Mar[facility] [place] [place] [address] Lab Direc tor: Karina esparza MD, Phone : [phone] Not Available [facility] ([facility]) [address] [facility], [place], [address], 08/03/2022 06:12:39 07/28/19 23 08/09/2022 METHY LMALO HARVEY ACID QUANT methylmaloni c acid, serum 777 nmol/ L 0-378 high Speci men Comme nt: Test( s) 11018 7-Met hylma lonic Acid, Serum Speci men Comme nt: was devel oped and its perfo rmanc e lauren cte risti cs Speci men Comme nt: deter mined by [employer]. It has not been spencer ared or appro carlyn Speci men Comme nt: by the Food and Drug Admin istra tion. Perfo rmed at: [facility] [address] [address] Lab Direc tor: Karina esparza MD, Phone : [phone] Not Available [facility] ([facility]) [address] [facility], [place], [address], 08/09/2022 13:10:51 07/28/19 23 07/28/2022 ugi with KUB [facility] [address] [place] [address] Phone: Fax: Name: MALAIKA SOUTH Exam Date: 023 : [birth year] Age 42 Gender : F Access ion: [id number] Physic shona: SIZEMO RE, EDWARD Facili ty: [facility] Facili ty HSV: Outpat ient [...] [facility] Legall y authen ticate d by KIERA MCMULLEN 07-28 09:05: 37 CC'ed Logic: Orderi ng Provid er: SIZEMO RE EDWARD Attend ing Provid er: SIZEMO RE EDWARD Admitt ing Provid er: SIZEMO RE EDWARD [email or web address] [facility] [address], [place], [address], 07/28/2022 11:59:48 01/05/20 23 12/14/2022 cardi ac clear ance* No observ ation record ed. [email or web address] [facility] (Med Record) [address], [place], [address], 04/20/2023 09:09:03 01/05/20 23 12/21/2022 cardi ac clear ance* No observ ation record ed. [email or web address] [facility] [address], [place], [address], 04/20/2023 09:08:08 01/23/20 23 01/23/2023 elect rocar diogr am No observ ation record ed. [facility] [address], [place], [address], 01/23/2023 13:04:23 01/24/20 23 01/22/2023 elect rocar diogr am No observ ation record ed. [facility] [address], [place], [address], 01/23/2023 13:01:52 08/15/19 24 07/28/2022 ugi with KUB [facility] [address] [place] [address] Phone: Fax: Name: MALAIKA SOUTH Exam Date: 023 : [birth year] Age 42 Gender : F Access ion: [id number] Physic shona: SIZEMO RE, EDWARD Facili ty: [facility] Facili ty HSV: Outpat ient Exam: [...] Thank you for referr MALAIKA Yan to [facility]. Legall y authen ticate d by POPE MICAELA Wallace 08-15 10:33: 42 CC'ed Logic: Orderi ng Provid er: RUBEN FREIRE Attend ing Provid er: RUBEN FREIRE Admitt ing Provid er: CLAUDIOMO RE TED [email or web address] [facility] [address] [facility], [place], [address], 08/15/2023 10:55:04 Result Notes None recorded. Problems Name Problem SNOMED Code Status Onset Date Resolution Date Notes Provider Name and Address Organization Details Recorded Time Laparoscopic sleeve gastrectomy Active 2021 Ted Woodard DNP, EPOXY FABRICATION SUPERVISOR, MATHEMATICS DEPARTMENT CHAIR-C [address], [place], [address] , [facility] & [place] 09:07:34 Morbid obesity 335199596 Active 2021 Ted Woodard DNP, EPOXY FABRICATION SUPERVISOR, MATHEMATICS DEPARTMENT CHAIR-C [address] , [place], [address] , [facility] - [facility] & [place] 2 09:08:10 Dyslipidemia 813185043 Active 2021 Ted Woodard DNP, EPOXY FABRICATION SUPERVISOR, MATHEMATICS DEPARTMENT CHAIR-C [address], [place], [address] , [place] - [facility] - [place] & [place] 2 09:08:17 Elevated blood-pressur e reading without diagnosis of hypertension 243605451 Active 2021 Ted Woodard DNP, EPOXY FABRICATION SUPERVISOR, MATHEMATICS DEPARTMENT CHAIR-C [address], [place], [address] , [place] - [facility] [place] & [place] 2 14:50:06 Intentional weight loss 215196975 Active 2021 Ted Woodard DNP, EPOXY FABRICATION SUPERVISOR, MATHEMATICS DEPARTMENT CHAIR-C [address], [place], [address] , [place] - [facility] [place] & [place] 2 14:52:58 Heartburn 59474413 Active 2021 Ted Woodard DNP, EPOXY FABRICATION SUPERVISOR, MATHEMATICS DEPARTMENT CHAIR-C [address], [place], [address] , [place] - [facility] - [place] & [place] 2 15:12:32 Increased belching 65613976 Active 2021 Ted Woodard DNP, EPOXY FABRICATION SUPERVISOR, MATHEMATICS DEPARTMENT CHAIR-C [address], [place], [address] [place] [address] , [place] - [facility] [place] & [place] 2 15:12:40 Obesity 280793395 Active 2022 Ted Woodard DNP, EPOXY FABRICATION SUPERVISOR, MATHEMATICS DEPARTMENT CHAIR-C [address], [place], [address] , [place] - [facility] - [place] & [place] 3 15:28:14 Epigastric pain 72035477 Active 2022 Ted Woodard DNP, EPOXY FABRICATION SUPERVISOR, MATHEMATICS DEPARTMENT CHAIR-C [address], [place], [address] , [place] - [facility] - [place] & [place] 3 15:45:12 Transient altered mental status 106826796 Active 2022 Angel Luis Cui MD [address] , [place], [address] , [facility] - NT [facility] & [place] 3 14:09:18 Problem Notes Documentation Provider Name and Address Organization Details Recorded Time Dietitian Note : [facility] Nutrition Consultation/Follow-up Progress Note Date: 03/29/2022 [...] - discussed exercise ideas Barbie Woodard, DNP, EPOXY FABRICATION SUPERVISOR, MATHEMATICS DEPARTMENT CHAIR-C [address], [place], [address], [facility] - [facility] - [place] & [place] 05/25/2022 10:17:56 Procedures Surgical History Date Name Laterality Status Provider Name and Address Organization Details Recorded Time 02/26/20 22 completed Rosina Baron [place] - [facility] & [place] 01/22/2023 13:42:29 section completed Cedric horn [place] - [facility] & [place] 04/11/2022 14:47:19 extraction of wisdom tooth completed Cedric PRUITT [facility] & [place] 04/11/2022 14:47:24 Tubal Ligation completed Cedric PRUITT [facility] & [place] 04/11/2022 14:47:39 laparoscopic sleeve gastrectomy completed Cedric PRUITT [facility] & [place] 04/11/2022 14:47:47 Imaging Results None recorded. Procedure Notes None recorded. Medical Equipment None Reported. Allergies Allergen ID Allergen Name Allergen Category Reaction Reaction Severity Criticality Documentation Date Start Date Code Code System Note Provider Name and Address Organization Details Recorded Time 54258 Product containin g penicilli n (product) medicatio n Not available Not available Not available 04/11/2022 19509 8001 SNOMED Cedric salcido, [place] PRUITT [facility] & [place] 2 14:42:41 58149 Lexapro medicatio n rash moderate Not available 04/11/2022 46252 1 RxNorm LYDIA Nelson [facility] & [place] 2 14:42:50 34661 penicilli n G Not available hives itching moderate moderate Not available 01/22/2023 7980 RxNorm Rosina salcido, [place]DIA Craft SENTHIL [facility] & [place] 3 13:42:12 Medications Name Sig Start Date [...] Body weight Body temperature Heart rate Systolic And Diastolic Provider Name and Address Organization Details Last Updated DateTime 3 160.02 cm 32.8 kg/m2 86238.5 9 g 97.5 [degF] 63 /min 151/94 mm[Hg] Justyna Spivey [facility] & [place] 3 15:24:34 Date Recorded Body height Body mass index (BMI) Body weight Oxygen saturation Oxygen saturation in Arterial blood by Pulse oximetry Heart rate Systolic And Diastolic Provider Name and Address Organization Details Last Updated DateTime 3 160.02 cm 32.6 kg/m2 41317 g 100 % 100 % 71 /min 124/86 mm[Hg] Rosina Baron [facility] & [place] 3 13:55:36 Date Recorded Body temperature Body height Body mass index (BMI) Body weight Heart rate Systolic And Diastolic Provider Name and Address Organization Details Last Updated DateTime 2 98.2 [degF] 160.02 cm 36.1 kg/m2 37560.7 7 g 76 /min 138/94 mm[Hg] Cedric Cullen catam [facility] & [place] 2 14:46:49 Social History Question Answer Notes LastModified by Kaymuizat ion Details LastModified Time Tobacco Smoking Status Never Smoker Cedricdorina Landaverde [facility] & [place] 04/11/2022 14:44:28 Do You Have An Advance [...] anxious, or unable to sleep at night)? [id number] Information not available 01/22/2023 Family History Relationship Description Onset Age of this Age Resolved Age Notes LastModified by Organization Details LastModified Time Father No current problems or disability Not available 01/22 13:54:33 Mother No current problems or disability Not available 01/22 13:54:33 Medical History Condition Response Kidney Stones Y Hypothyroidism Y Depression Y Vision or Eye Problems Y Infertility [...] SNOMED-CT Code Diagnosis ICD10 Code Diagnosis Note 11824 Ted Woodard, DNP, EPOXY FABRICATION SUPERVISOR, MATHEMATICS DEPARTMENT CHAIR-C [facility] [address] [facility] [address] [place] [address] 04/11/2022 14:28:56 04/11/2022 15:44:49 Dyslipidemia 922246612 E78.5 Morbid obesity 122259575 E66.01 History of bariatric surgical procedure 649849421 Z98.84 . History of gastrectomy 311576095 Z90.3 Patient is status post bariatric surgery and at increased risk for vitamin deficienci es and malnutriti on. Bariatric vitamin panel ordered today. Patient will be contacted to correct any vitamin deficienci es. Elevated blood-pressure reading without diagnosis of hypertension 056085602 R03.0 Intentiona l weight loss 731826091 R63.8 Heartburn 74755681 R12 GERD-patie nt was reassured. We discussed [...] also add Carafate as needed. Increased belching 46224 005 R14.2 [id number] Ted Woodard, DNP, EPOXY FABRICATION SUPERVISOR, MATHEMATICS DEPARTMENT CHAIR-C [facility] Bariatric s and Adv Surg [address] [facility] [place] [address] 07/21/2022 15:11:20 07/21/2022 15:47:32 History of bariatric surgical procedure [id number] Z98.84 Advised qid intake 50% protein 6316-7457 calories/d y less than 100 carbs/dy Long [...] with any deficienci es. History of gastrectomy [id number] Z90.3 Patient is status post bariatric surgery and at increased risk for vitamin deficienci es and malnutriti on. Bariatric vitamin panel ordered today. Patient will be contacted to correct any vitamin deficienci es. Intentiona l weight loss 109829164 R63.8 Elevated blood-pressure reading without diagnosis of hypertension 514453954 R03.0 Dyslipidemia 354346880 E 78.5 Obesity 295960805 E66.9 Epigastric pain 26169323 R10.13 may try tylenol as needed for pain as well as heating pad. will proceed with UGI. Possible CT scan of abdomen. [id number] Angel Luis Cui MD [facility] [address] [place] [address] 01/22/2023 13:25:38 01/22/2023 14:59:38 Transient altered mental status [id number] R41.82 I do not think this is [...] Member ID Guarantor Name 01/19/2023 1 [employer] [facility] (MEDICAID HMO) Malaika South [id number] Malaika South Notes Date Note Type Note [...] Rate =1370 kilo calories Ted Woodard, JIGNA, EPOXY FABRICATION SUPERVISOR, MATHEMATICS DEPARTMENT CHAIR-C [address], [place], [address], [facility] & [place] 04/11/2022 15:14:09 07/21/2022 text/html Patient presents the [...] eat fast. She has not tried any yfwy-ycc-nnamwtd medications or treatments. Currently rates mid epigastric abdominal pain at 3/10.Today's InBody reveals a skeletal muscle mass = 54.0 lb,body fat mass = 82.9 lb,BMI = 32.8Percent body fat = 44.8Basal Metabolic Rate = 1370 kilo calories Ted Woodard, JIGNA, EPOXY FABRICATION SUPERVISOR, MATHEMATICS DEPARTMENT CHAIR-C [address], [place], [address], [facility] & [place] 07/21/2022 15:48:08 01/22/2023 text/html 42 F here [...] EF no valvular abnormalitiesEKG 01/22/2023 NSR 76 NC interval 190 QRS 80 QTC 420 Angel Luis Cui MD [address] [facility], [place], [address], [facility] - [place] & [place] 01/22/2023 14:47:01 OBGyn Episode No OBEpisode recorded.
--- OUTSIDE RECORDS SUMMARY | 2024-12-18 13:12 | XMS_ITS | Patient Health Record ---
Author Organization [facility] Address [address] [place] [address] Care Team Providers Care Boat Master Name Role Phone eMssi Mejia Primary Care Provider Perri Alejo Unavailable [phone] Mima Biggs Unavailable [phone] Migration, Provider Unavailable Unavailable Allergies Allergen (clinical drug ingredient) Drug/Non Drug Allergy documented on EMR Reaction Allergy Type Onset Date Status escitalopram Lexapro rash Drug Allergy Acti ve Penicillin hives Drug Allergy Active Results Component Value Reference Range Notes Rapid Covid Antigen Reviewed date:02/06/2024 01:12:28 PM Interpretation:Negative Performing Lab: Notes/Report: Negative Rapid Strep Reviewed date:02/06/2024 12:34:35 PM Interpretation:Negative Performing Lab: Notes/Report: Negative MRI : Head, With and Without Contrast [...] 37-170 ug/dL DTIBC 443 265-497 ug/dL IRONSAT 7.64596 15-55 % H-VITB12 Reviewed date:01/22/2024 02:39:28 PM Interpretation: Performing Lab: Notes/Report: VITB12 238 239-931 pg/mL Medications Medication SIG (Take, Route, Frequency, Duration) [...] Status Risk Notes Problem Morbid obesity (disorder) (389488904) Morbid (severe) obesity due to excess calories (E66.01) Active confirmed Problem Headache disorder (639551327) Other headache syndrome (G44.89) Active confirmed Problem Essential hypertension (02058336) Essential (primary) hypertension (I10) Active confirmed Problem Ataxia (49124157) Ataxia, unspecified (R27.0) Active confirmed Problem Syncope and collapse (975725898) Syncope and collapse (R55) Active confirmed Problem Hypothyroid (99880101) Hypothyroid (E03.9) Active confirmed Problem Paresthesia (00377551) Paresthesia (R20.2) Active confirmed Problem Anxiety (33609150) Anxiety (F41.9) Active confi rmed Problem Sore throat (082680157) Sore throat (J02.9) Active confirmed Problem Gastroesophageal reflux disease (774108777) GERD without esophagitis (K21.9) Active confirmed Problem Body mass index 30.00 to 34.99 (337045278737512) BMI 31.0-31.9,adult (Z68.31) Active confirmed Problem Murmur (693642446) Murmur (R01.1) Active confir med Problem Obesity (990064359) Obesity (BMI 30-39.9) (E66.9) Active confirmed Problem Iron deficiency anemia (81035748) Other iron deficiency anemia (D50.8) Active confirmed Problem Abnormal mammogram (501045539) Abnormal mammogram (R92.8) Active confirmed Problem Morbid obesity (372206415) Morbid obesity due to excess calories (E66.01) Active confirmed Problem Tension headache (735625576) Tension headache (G44.209) Active confirmed Problem Hypoglycemia (044924201) Hypoglycemia (E16.2) Active confirmed Problem Migraine without aura, not refractory (076218048) Migraine without aura and without status migrainosus, not intractable (G43.009) Active confirmed Problem Iron deficiency anemia (37145149) Iron deficiency anemia, unspecified iron deficiency anemia type (D50.9) Active confirmed Problem Seasonal allergic rhinitis (487302598) Acute seasonal allergic rhinitis (J30.2) Active confirmed Problem Normocytic anemia (333645309) Normocytic anemia (D64.9) Active confirmed Problem Respiratory tract congestion (849957672) Congestion of upper airway (J98.8) Active confirmed Problem History of bariatric surgery (683467105) History of bariatric surgery (Z98.84) Active confirmed Problem Plantar nerve lesion (489404627) 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 Encounters Encounter Location Date Provider Diagnosis [facility] [address] [facility] [address] [place] [address] 09/20/2024 Provider Migration Muscle pain M79.10 [facility] [address] [address] 01/21/2024 Perri Alejo Elevated blood pressure reading R03.0 ; Hypothyroid E03.9 ; Murmur R01.1 ; Dizziness R42 ; Other iron deficiency anemia D50.8 and B12 deficiency E53.8 [facility] [address] [facility] [address] [place] [address] 01/22/2024 Perri Alejo Vertigo R42 ; Routine medical exam Z00.00 ; B12 deficiency E53.8 ; Other iron deficiency anemia D50.8 ; GERD without esophagitis K21.9 ; Daily headache R51.9 ; Paresthesia R20.2 ; Dizziness R42 ; H/O gastric sleeve Z90.3 and Obesity (BMI 30-39.9) E66.9 [facility] [address] [facility] [address] [place] [address] 01/29/2024 Perri Yuriesau Other iron deficiency anemia D50.8 ; Dizziness R42 ; H/O gastric sleeve Z90.3 and Obesity (BMI 30-39.9) E66.9 [facility] [address] [place] [address] 02/06/2024 Mima Biggs Sore throat J02.9 ; Viral URI J06.9 and Congestion of upper respiratory tract J39.8 [facility] [address] [place], [place] [address] 05/13/2024 Mima Biggs Muscle pain M79.10 [facility] [address] [facility] [address] [place] [address] 01/21/2024 Perri Alejo Assessments Encounter Date Diagnosis (ICD Code) Assessment [...] Rapid Strep 12/06/2010 EKG : In House 11/07/2010 EKG : In House 04/12/2015 EKG : In House 06/28/2020 Cardiolite GXT 11/29/2006 Doppler: Venous, R Lower Extremity 11/02 Doppler: Venous, L Lower Extremity 11/02 Mammogram : Bilateral 08/28/2023 Holter Monitor, 48 hour 12/14/2022 CT Scan : Abdomen and Pelvis with and wi thout contrast 04/10/2018 H-CBC with AUTO DIFF 11/07/2010 H-URINE CULTURE 06/07/2012 H-URINE CULTURE 06/16/2017 H-CMP 06/16/2017 H-CMP 11/07/2010 H-LIPID PANEL 06/16/2017 [...] Coverage Start Date Coverage End Date AETNA [facility] [address] [address] [place] [address] [phone] [id number] Gsiel Stahl Self - patient is the insured [...] Surgery Date(Month/Year) 11/21/2004-11/27/07-03/26/09 bladder scraping 1985 gastric sleeve-[facility] 09/2021 Hospitalization History Reason Date(Month/Year) gastric sleeve 09/2021 syncope Elevated bp and vertigo 06/2016
[2024-12-18 13:30] VITALS: BP 109/66; PULSE 57; RESP 18; O2SAT 98
[2024-12-18 14:15] VITALS: BP 113/68; PULSE 61; RESP 18; O2SAT 98
== END 2024-12-18 14:15 | disposition home or self-care (01) ==
LOC: INF 13:08
PROVIDERS: PCP Nurse Practitioner Family; Visit Provider Internal Medicine Medical Oncology
DX: K95.89 Other complications of other bariatric procedure (principal)
CPT/HCPCS: 96365

== ENCOUNTER 2025-01-14 08:18 | Outpatient (CLI) | payer OTHER, SELFPAY ==
--- OUTSIDE RECORDS SUMMARY | 2024-02-26 11:30 | XMS_ITS ---
Author Organization [facility] Address [address] [place] [address] Care Team Providers Care Home Care Nurse Name Role Phone Messi Mejia Primary Care Provider [phone] Perri Alejo [phone] REASON FOR VISIT 3 Week F/U Encounters Encounter Location Date Provider Diagnosis [facility] [address] [place], [place] [address] 02/26/2024 Perri Alejo Plan Of Treatment No Information Progress Notes * Gisel STAHL FDOB:1980 (44 yo F)Acc No.[id number]:02/26/2024 Progress Notes Patient: Gisel YOUNGBLOOD Provider: Sy Alejo APRN :1980 A ge:43 Y S ex:Female Date:02/26/2024 Address:[address] [place] [id number] Pcp:Messi Mejia Subjective: * Chief Complaints: * 1 . 3 Week F/U. * Medical History: Objective: * Vitals: Assessment: Plan: * Treatment: * * Electronic signature of Teresita Alejo APRN on 01/14/2025 at 08:24 AM EDT Sign off status: Pending * Provider: Sy Alejo APRN Date: 0 02/26/2024 Generated for Rafa acosta/Steph/Terellitting on: 0 01/14/2025 08:24 AM EDT
--- OUTSIDE RECORDS SUMMARY | 2024-09-20 17:30 | XMS_ITS ---
Author Organization [facility] D [place] Address [address] [place] [address] Care Team Providers Care Thermocouple Tester Name Role Phone Messi Mejia Primary Care Provider Perri Alejo Unavailable [phone] Migration, Provider Unavailable Unavailable Allergies Allergen (clinical drug ingredient) Drug/Non Drug Allergy documented on EMR Reaction Allergy Type Onset Date Status escitalopram Lexapro rash Drug Allergy Acti ve Penicillin hives Drug Allergy Active REASON FOR VISIT [facility] To [facility] Conversion Encounter Medications Medication SIG (Take, Route, [...] Active Encounters Encounter Location Date Provider Diagnosis [facility] [address] [place] [address] 09/20/2024 Provider Migration Muscle pain M79.10 Assessments [...] * Gisel STAHL FDOB:1980 (44 yo F)Acc No.[id number]:09/20/2024 Patient: Gisel YOUNGBLOOD Provider: Sydnie Preston :1980 A ge:44 Y S ex:Female Date:09/20/2024 Address:[facility] [id number] Pcp:Messi Mejia Subjective: [...] Vitals: Assessment: * Assessment: 1. [facility] - M79.10 (Primary) Plan: * Treatment: * * Electronic signature of Prov vivian Migration on 01/14/2025 at 08:24 AM EDT Sign off status: Pending * Provider: Sydnie cunha Migration Date: 0 09/20/2024 Generated for Rafa acosta/Steph/Selene on: 0 01/14/2025 08:24 AM EDT
--- OUTSIDE RECORDS SUMMARY | 2025-01-14 08:25 | XMS_ITS | Clinical Summary ---
Author Organization Healthcare Address [address] [place] [address] Care Team Providers Care Maori Liaison Adviser Name Role Phone Messi Mejia MD Primary Care Provider [phone] Family History Medical History Relation Name Comments [...] (2 - Td or Tdap) 08/28/2023 08/27/2013 [id number] Vaccine (3 - 2023- season) 2024 02/04/2021, [...] [facility] MEDICAID Care Teams Maori Liaison Adviser Relationship Specialty Start Date End Date Messi Mejia MD [address] [place] [address] [facility] - General 10/29/20
--- OUTSIDE RECORDS SUMMARY | 2025-01-14 08:25 | XMS_ITS | Patient Health Record ---
Author Organization [facility] Address [address] [place] [address] Care Team Providers Care Advertising Traffic Manager Name Role Phone Messi Mejia Primary Care Provider Perri Alejo Unavailable [phone] Mima Biggs Unavailable [phone] Migration, Provider Unavailable Unavailable Allergies Allergen (clinical drug ingredient) Drug/Non Drug Allergy documented on EMR Reaction Allergy Type Onset Date Status escitalopram Lexapro rash Drug Allergy Acti ve Penicillin hives Drug Allergy Active Results Component Value Reference Range Notes Echocardiogram - Bubble Stud y Reviewed date:02/05/2024 03:00:39 PM Interpretation: Performing Lab: Notes/Report: MRI : Head, With and Without Contrast Reviewed date:02/22/2024 02:41:32 PM Interpretation: Performing Lab: Notes/Report: Holter Monitor, 48 hour Reviewed date:02/01/2024 03:16:14 PM Interpretation: Performing Lab: Notes/Report: M-Thyroid Stimulating Hormon e Reviewed date:01/22/2024 02:39:28 [...] 0.1 0.0-0.4 K/mm3 BA# 0.0 0-0.2 K/mm3 Rapid Strep Reviewed date:02/06/2024 12:34:35 PM Interpretation:Negative Performing Lab: Notes/Report: Negative Rapid Covid Antigen Reviewed date:02/06/2024 01:12:28 PM Interpretation:Negative Performing Lab: Notes/Report: Negative H-FETIBC Reviewed date:01/22/2024 02:39:28 PM Interpretation: Performing Lab: Notes/Report: FE 32 37-170 ug/dL DTIBC 443 265-497 ug/dL IRONSAT 7.11873 15-55 % H-VITB12 Reviewed date:01/22/2024 02:39:28 PM [...] Status Risk Notes Problem Morbid obesity (disorder) (980806185) Morbid (severe) obesity due to excess calories (E66.01) Active confirmed Problem Headache disorder (651296419) Other headache syndrome (G44.89) Active confirmed Problem Essential hypertension (76923638) Essential (primary) hypertension (I10) Active confirmed Problem Ataxia (59601113) Ataxia, unspecified (R27.0) Active confirmed Problem Syncope and collapse (903295977) Syncope and collapse (R55) Active confirmed Problem Hypothyroid (03851190) Hypothyroid (E03.9) Active confirmed Problem Paresthesia (90556178) Paresthesia (R20.2) Active confirmed Problem Anxiety (03115406) Anxiety (F41.9) Active confi rmed Problem Sore throat (377511830) Sore throat (J02.9) Active confirmed Problem Gastroesophageal reflux disease (789713937) GERD without esophagitis (K21.9) Active confirmed Problem Body mass index 30.00 to 34.99 (535038094630288) BMI 31.0-31.9,adult (Z68.31) Active confirmed Problem Murmur (054840099) Murmur (R01.1) Active confir med Problem Obesity (623076280) Obesity (BMI 30-39.9) (E66.9) Active confirmed Problem Iron deficiency anemia (67158688) Other iron deficiency anemia (D50.8) Active confirmed Problem Abnormal mammogram (505067189) Abnormal mammogram (R92.8) Active confirmed Problem Morbid obesity (646342300) Morbid obesity due to excess calories (E66.01) Active confirmed Problem Tension headache (393296708) Tension headache (G44.209) Active confirmed Problem Hypoglycemia (719655668) Hypoglycemia (E16.2) Active confirmed Problem Migraine without aura, not refractory (091997653) Migraine without aura and without status migrainosus, not intractable (G43.009) Active confirmed Problem Iron deficiency anemia (79159128) Iron deficiency anemia, unspecified iron deficiency anemia type (D50.9) Active confirmed Problem Seasonal allergic rhinitis (640946341) Acute seasonal allergic rhinitis (J30.2) Active confirmed Problem Normocytic anemia (421478030) Normocytic anemia (D64.9) Active confirmed Problem Respiratory tract congestion (891056099) Congestion of upper airway (J98.8) Active confirmed Problem History of bariatric surgery (732010068) History of bariatric surgery (Z98.84) Active confirmed Problem Plantar nerve lesion (898837953) 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 Encounters Encounter Location Date Provider Diagnosis [facility] [address] [address] 01/21/2024 Perri McNees [facility] [address] [address] 09/20/2024 Provider Migration Muscle pain M79.10 [facility] [address] [place] [address] 01/22/2024 Perri Yuries Vertigo R42 ; Routine medical exam Z00.00 ; B12 deficiency E53.8 ; Other iron deficiency anemia D50.8 ; GERD without esophagitis K21.9 ; Daily headache R51.9 ; Paresthesia R20.2 ; Dizziness R42 ; H/O gastric sleeve Z90.3 and Obesity (BMI 30-39.9) E66.9 [facility] [address] [place] [address] 01/29/2024 Perri Alejo Other iron deficiency anemia D50.8 ; Dizziness R42 ; H/O gastric sleeve Z90.3 and Obesity (BMI 30-39.9) E66.9 [facility] [address] [place], [place] [address] 02/06/2024 Mima Biggs Sore throat J02.9 ; Viral URI J06.9 and Congestion of upper respiratory tract J39.8 [facility] [address] [place] [address] 05/13/2024 Mima Biggs Muscle pain M79.10 [facility] [place] [address] [address] 01/21/2024 Perri Alejo Elevated blood pressure reading R03.0 ; Hypothyroid E03.9 ; Murmur R01.1 ; Dizziness R42 ; Other iron deficiency anemia D50.8 and B12 deficiency E53.8 Assessments Encounter Date Diagnosis (ICD Code) Assessment Notes Treatment Notes Treatment Clinical Notes Section Notes 01/22/2024 Routine medical exam (ICD-10 - Z00.00) [...] plan. 02/06/2024 Sore throat (ICD-10 - J02.9) 09/20/2024 Muscle pain (ICD-10 - M79.10) 05/13/2024 [...] agrees with the plan of care above. 01/21/2024 Hypothyroid (ICD-10 - E03.9) 01/21/2024 Elevated blood pressure reading (ICD-10 - R03.0) Symptoms likely related to her anemia. Will check labs and refer/treat as indicated. Short term FU in office tomorrow for b/p check. Bring home monitor to appointment. Discussed s/s of worsening condition that warrant urgent fu in ED. 01/21/2024 Murmur (ICD-10 - R01.1) 02/06/2024 Congestion of upper respiratory tract (ICD-10 - J39.8) 01/29/2024 H/O gastric sleeve (ICD-10 - Z90.3) 01/22/2024 B12 deficiency (ICD-10 - E53.8) Restart B12 injections as above. Continue SL supplements daily 01/29/2024 Obesity (BMI 30-39.9) (ICD-10 - E66.9) [...] Keep FU for colonoscopy next month 01/21/2024 Dizziness (ICD-10 - R42) 01/21/2024 Other iron deficiency anemia (ICD-10 - D50.8) 01/22/2024 GERD without esophagitis (ICD-10 - K21.9) Well controlled on PPI 01/22/2024 Daily headache (ICD-10 - R51.9) Given [...] Rapid Strep 03/07/2007 EKG : In House 04/12/2015 EKG : In House 11/07/2010 EKG : In House 06/28/2020 Cardiolite GXT [...] Coverage Start Date Coverage End Date AETNA [facility] [address] [address] [place] [address] [id number] Gisel Stahl Self - patient is the [...] Surgery Date(Month/Year) 11/21/2004-11/27/07-03/26/09 bladder scraping 1985 gastric sleeve-[facility] 09/2021 Hospitalization History Reason Date(Month/Year) gastric sleeve 09/2021 syncope Elevated bp and vertigo 06/2016
[2025-01-14 08:55] LABS: Alanine Aminotransferase 11 U/L (12-78); Albumin Level 4.3 g/dl (3.5-5.0); Albumin/Globulin Ratio 1.7 (1.1-1.8); Alkaline Phosphatase 60 U/L (38-126); Anion Gap 10.0 mEq/L (5-15); Aspartate Amino Transferase 22 U/L (14-36); Bilirubin,Total 0.6 mg/dl (0.2-1.3); Blood Urea Nitrogen 17 mg/dl (7-17); Calcium 9.7 mg/dl (8.4-10.2); Carbon Dioxide 27 mmol/L (22.0-30.0); Chloride 104 mmol/L (98-107); Creatinine,Serum 0.70 mg/dl (0.52-1.04); Estimated Glomerular Filt Rate 91 ml/min (>60); GFR (African American) 110 ML/MIN (>60); Globulin 2.5 g/dL (1.3-3.2); Glucose 91 mg/dl (74-100); Potassium 4.0 mmoL/L (3.5-5.1); Sodium 137 mmol/L (136-145); Total Protein,Serum 6.8 g/dl (6.3-8.2)
[2025-01-14 09:55] LABS: Iron 121 ug/dL (37-170)
[2025-01-14 10:04] LABS: Total Iron Binding Capacity 276 ug/dL (265-497)
[2025-01-14 10:32] LABS: Ferritin 56.0 ng/ml (6.24-137)
[2025-01-15 09:40] LABS: Hematocrit 41.7 % (37.0-47.0); Hemoglobin 12.9 g/dL (12.2-16.2); Immature Granulocytes % 0.2 %; Mean Corpuscular HGB Conc 30.9 g/dL (31.8-35.4); Mean Corpuscular Hemoglobin 29.8 pg (27.0-31.2); Mean Corpuscular Volume 96.3 fl (81-99); Nucleated Red Blood Cells % 0 %; Platelet Count 200 K/mm3 (142-424); Red Blood Count 4.33 M/mm3 (4.20-5.40); Red Cell Distribution Width-SD 63.6 fL; White Blood Count 4.7 K/mm3 (4.8-10.8)
== END 2025-01-14 23:59 | disposition home or self-care (01) ==
LOC: LAB 08:19
PROVIDERS: PCP Nurse Practitioner Family; Visit Provider Internal Medicine Medical Oncology
DX: K95.89 Other complications of other bariatric procedure (principal); D50.8 Other iron deficiency anemias
CPT/HCPCS: 36415; 80053; 82728; 83540; 83550; 85025

== ENCOUNTER 2025-05-18 15:46 | Outpatient (CLI) | payer OTHER, SELFPAY ==
--- OUTSIDE RECORDS SUMMARY | 2025-05-18 15:49 | XMS_ITS | Clinical Summary ---
Author Organization [facility] Address [address] [facility] [place] [address] Care Team Providers Care Lime Kiln Worker Helper Name Role Phone Messi Mejia MD Primary Care Provider [phone] Family History Medical History Relation Name Comments [...] of 2 - 13+ 2-dose series) 1993 [facility]- SDOH Screenings 1998 [facility]-Adult SDOH Screenings 1998 [facility]-Hepatitis B Vaccines (1 of 3 - 19+ 3-dose series) 1999 [facility]-Pap Smear 2001 HPV Vaccines (1 - 3-dose SCDM series) 2007 [facility]-Cervical Cancer Screening 2010 [facility]-HPV/Cotest 2010 [facility]-DTaP,Tdap,and Td Vaccines (2 - Td or Tdap) 08/28/2023 08/27/2013 [id number] Vaccine (3 - 2024- season) 2025 02/04/2021, 01/07/2021 [facility]-Influenza Vaccine (#1) 02/16/202504/12, 05/31/2019, [...] age to complete this topic Insurance AETNA [facility] MEDICAID Care Teams Lime Kiln Worker Helper Relationship Specialty Start Date End Date Messi Mejia MD [address] [place] [address] [facility] - General 10/29/20
[2025-05-18 16:14] LABS: Hematocrit 40.4 % (37.0-47.0); Hemoglobin 13.8 g/dL (12.2-16.2); Immature Granulocytes % 0.4 %; Mean Corpuscular HGB Conc 34.2 g/dL (31.8-35.4); Mean Corpuscular Hemoglobin 31.8 pg (27.0-31.2); Mean Corpuscular Volume 93.1 fl (81-99); Nucleated Red Blood Cells % 0 %; Platelet Count 186 K/mm3 (142-424); Red Blood Count 4.34 M/mm3 (4.20-5.40); Red Cell Distribution Width-SD 41.4 fL; White Blood Count 5.5 K/mm3 (4.8-10.8)
[2025-05-18 16:43] LABS: Iron 49 ug/dL (37-170)
[2025-05-18 16:56] LABS: Total Iron Binding Capacity 292 ug/dL (265-497)
[2025-05-18 17:16] LABS: Ferritin 10.4 ng/ml (6.24-137)
[2025-05-18 18:36] LABS: Vitamin B12 548 pg/mL (239-931)
== END 2025-05-18 23:59 | disposition home or self-care (01) ==
LOC: LAB 15:46
PROVIDERS: PCP Nurse Practitioner Family; Visit Provider Internal Medicine Medical Oncology
DX: D64.9 Anemia, unspecified (principal)
CPT/HCPCS: 36415; 82607; 82728; 83540; 83550; 85025